=== PATIENT | female | born 1960 | race Caucasian/White ===

== ENCOUNTER → 2020-03-05 08:24 | Outpatient (CLI) | payer SELFPAY ==
[2020-03-05 09:59] LABS: Absolute Lymphocyte Count 0.72 X10^3/uL (0.83-4.51); Absolute Neutrophil Count 3.1 X10^3/uL (2.0-7.7); Basophil# 0.02 X10^3/uL; Basophil% 0.4 % (0-1); Eosinophils% 4.4 % (0-5); Hematocrit 43.3 % (37-47); Hemoglobin 14.1 g/dL (12.0-15.0); Lymphocyte # 0.72 X10^3/ul (4.0); Mean Corp Hgb Conc 32.6 g/dL (32-36); Mean Corpuscular Hgb 29.4 pg (27.0-32.0); Mean Corpuscular Volume 90.2 fL (81-99); Mean Platelet Vol. 10.2 fl (6.2-12.0); Monocyte# 0.38 X10^3/uL; Monocyte% 8.4 % (0-10); NRBC Flagged by Analyzer 0 % (0-5); Neutrophil # 3.14 X10^3/uL (2.7-7.7); Neutrophil % 69.9 % (47-70); Platelet Count 188 K/mm3 (150-450); RBC Distribution Width CV 12.5 % (11.6-14.6); RBC Distribution Width SD 41.3 fl (35.1-43.9); White Blood Count 4.5 K/mm3 (4.4-11.0)
[2020-03-05 10:19] LABS: ALB/GLOB Ratio 0.9 RATIO (0.9-2.4); AST(SGOT) 66 U/L (15-37); Alanine Aminotransfer ALT/SGPT 85 U/L (13-56); Albumin, Serum 3.4 g/dL (3.2-5.0); Alkaline Phosphatase 101 U/L (45-117); Anion Gap 6 (5-15); BUN 15 mg/dL (7-18); BUN/Creat Ratio 21.3 RATIO (10-20); Calcium,Total 8.6 mg/dL (8.5-10.1); Chloride 106 mmol/L (98-107); Cholesterol 102 mg/dL (200); EST Glomerular Filtration Rate 90 mL/min (>60); Est Glom Filt Rate - Afr Amer 109 mL/min (>60); Ferritin 588 ng/mL (8-252); Globulin 3.9 g/dL (2.2-4.2); Glucose 95 mg/dL (74-106); High Density Lipoprotein 31 mg/dL; Potassium 3.6 mmol/L (3.5-5.1); Protein, Total 7.3 g/dL (6.4-8.2); Sodium Level 142 mmol/L (136-145); Triglycerides 132 mg/dL; Very Low Density Lipoprotein 26 mg/dL (5-40)
[2020-03-08 05:06] LABS: QNTFERON TB Mitogen Value > 10.00 IU/mL (.); QNTFERON TB Nil Value 0.01 IU/mL (.); QNTFERON TB1+ Ag Value 0.02 IU/mL (.); QNTFERON TB2+ Ag Value 0.01 IU/mL (.)
[2020-03-08 07:46] LABS: QNTIFERON TB Positive Criteria Negative (Negative)
== END ==
PROVIDERS: Physician Assistant Medical; PCP Family Medicine; Referring Provider Physician Assistant; Visit Provider Physician Assistant
DX: R74.8 Abnormal levels of other serum enzymes (principal); R79.89 Other specified abnormal findings of blood chemistry; L40.0 Psoriasis vulgaris; Z13.220 Encounter for screening for lipoid disorders; Z79.899 Other long term (current) drug therapy
CPT/HCPCS: 36415; 80053; 80061; 82728; 85025; 86480

== ENCOUNTER 2021-03-13 11:56 | Outpatient (CLI) | payer SELFPAY ==
[2021-03-16 20:07] LABS: QNTFERON TB Mitogen Value > 10.00 IU/mL (.); QNTFERON TB Nil Value 0 IU/mL (.); QNTFERON TB1+ Ag Value 0.02 IU/mL (.); QNTFERON TB2+ Ag Value 0.01 IU/mL (.)
[2021-03-17 12:14] LABS: QNTIFERON TB Positive Criteria Negative (Negative)
== END 2021-03-13 23:59 | disposition short-term general hospital (02) ==
LOC: MTLAB 11:59
PROVIDERS: PCP Physician Assistant; Referring Provider Physician Assistant Medical; Visit Provider Physician Assistant Medical
DX: L40.0 Psoriasis vulgaris (principal); Z79.899 Other long term (current) drug therapy
CPT/HCPCS: 36415; 86480

== ENCOUNTER → 2021-12-16 | Outpatient (CLI) | payer OTHER, SELFPAY ==
[2021-12-16 11:25] LABS: Erythrocyte Sedimentation Rate < 1 mm/hr (0-30)
[2021-12-16 11:27] LABS: Absolute Lymphocyte Count 1.14 X10^3/uL (0.83-4.51); Absolute Neutrophil Count 2.9 X10^3/uL (2.0-7.7); Basophil# 0.03 X10^3/uL; Basophil% 0.6 % (0-1); Eosinophil# 0.32 X10^3/uL; Eosinophils% 6.8 % (0-5); Hematocrit 47.7 % (37-47); Hemoglobin 16.2 g/dL (12.0-15.0); Lymphocyte # 1.14 X10^3/ul (0.83-4.51); Lymphocyte % 24.1 % (19-41); Mean Corpuscular Hgb 31.4 pg (27.0-32.0); Mean Corpuscular Volume 92.4 fL (81-99); Mean Platelet Vol. 9.9 fl (6.2-12.0); Monocyte# 0.31 X10^3/uL; Monocyte% 6.5 % (0-10); NRBC Flagged by Analyzer 0 % (0-5); Neutrophil # 2.91 X10^3/uL (2.7-7.7); Neutrophil % 61.4 % (47-70); Platelet Count 161 K/mm3 (150-450); RBC Distribution Width CV 12.8 % (11.6-14.6); RBC Distribution Width SD 43.7 fl (35.1-43.9); Red Blood Count 5.16 M/mm3 (4.2-5.4); White Blood Count 4.7 K/mm3 (4.4-11.0)
[2021-12-16 11:33] LABS: Prothrombin Time (Protime)PT. 13.1 SECONDS (11.7-14.9)
[2021-12-16 11:46] LABS: Ammonia < 10.0 umol/L (11-32)
[2021-12-16 12:02] LABS: Hemoglobin A1c 5.5 % (3.8-5.6)
[2021-12-16 12:09] LABS: AST(SGOT) 37 U/L (15-37); Alanine Aminotransfer ALT/SGPT 44 U/L (13-56); Albumin, Serum 3.9 g/dL (3.2-5.0); Alkaline Phosphatase 98 U/L (45-117); Anion Gap 5 (5-15); BUN 21 mg/dL (7-18); BUN/Creat Ratio 25.8 RATIO (10-20); Bilirubin, Direct 0.25 mg/dL (0.00-0.30); CRP < 2.90 mg/L (0.0-3.0); Calcium,Total 9.3 mg/dL (8.5-10.1); Chloride 105 mmol/L (98-107); Creatinine, Serum 0.82 mg/dL (0.55-1.02); EST Glomerular Filtration Rate 75 mL/min (>60); Est Glom Filt Rate - Afr Amer 91 mL/min (>60); Ferritin 295 ng/mL (8-252); Free T3 3.2 pg/mL (2.18-3.98); GGTP 17 U/L (5-55); Glucose 99 mg/dL (74-106); LDH 200 U/L (84-246); Protein, Total 7.9 g/dL (6.4-8.2); Sodium Level 139 mmol/L (136-145); T4 Free Direct 0.94 ng/dL (0.76-1.46); Thyroid Stim Hormone (TSH) 1.46 uIU/mL (0.358-3.74)
[2021-12-16 12:19] LABS: HIV - WCH Non-Reactive (Nonreactive)
[2021-12-17 14:08] LABS: Anti-Centromere B Ab <0.2 AI (0.0-0.9); Anti-Chromatin <0.2 AI (0.0-0.9); Anti-Jo <0.2 AI (0.0-0.9); Anti-Scleroderma-70 AB <0.2 AI (0.0-0.9); RNP Ab 0.3 AI (0.0-0.9); SJOGREN'S Anti-SS-A test < 0.2 AI (0.0-0.9); SJOGREN'S Anti-SS-B test < 0.2 AI (0.0-0.9); Smith Ab <0.2 AI (0.0-0.9)
[2021-12-17 15:31] LABS: Anti-Mitochondrial AB <20.0 Units (0.0-20.0); Anti-dsDNA Ab <1 IU/mL (0-9)
[2021-12-18 06:08] LABS: Angiotensin Convert Enzyme 33 U/L (14-82); Ceruloplasmin 22.4 mg/dL (19.0-39.0); Cytoplasmic Ab (C-ANCA) <1:20 titer (Neg:<1:20); HEPATITIS B SURFACE AG Negative (Negative); Haptoglobin 113 mg/dL (37-355); Hep C Antibodies <0.1 s/co ratio (0.0-0.9); Hepatitis A IgM Antibody Negative (Negative); Hepatitis B Core AB IgM Negative (Negative)
[2021-12-18 09:57] LABS: AFP, Tumor Marker 2.9 ng/mL (0.0-9.2); Anti-Smooth Muscle ABS 6 Units (0-19); Copper, Serum or Plasma 98 ug/dL (80-158); Perinuclear Ab (P-ANCA) <1:20 titer (Neg:<1:20); Thyroid Peroxidase AB < 8 IU/mL (0-34)
== END | disposition home or self-care (01) ==
LOC: LAB 10:40
PROVIDERS: PCP Physician Assistant; Referring Provider Nurse Practitioner Adult Health; Visit Provider Nurse Practitioner Adult Health
DX: K76.0 Fatty (change of) liver, not elsewhere classified (principal); D75.1 Secondary polycythemia
CPT/HCPCS: 36415; 80053; 80074; 82105; 82140; 82164; 82248; 82390; 82525; 82728; 82977; 83010; 83036; 83516; 83615; 84439; 84443; 84481; 85025; 85610; 85652; 86140; 86225; 86235; 86256; 86376; 86703

== ENCOUNTER → 2022-01-02 | Outpatient (CLI) | payer OTHER, SELFPAY ==
--- NOTE | 2022-01-02 08:11 | US_ITS ---
STUDY: ABDOMINAL ULTRASOUND - ELASTOGRAPHY REASON FOR VISIT: Female, 61 years old. Fatty infiltration of the liver. TECHNIQUE: Liver stiffness measurements were obtained on a [employer] RS 85 ultrasound machine using a CA 1-7 probe following the SRU guidelines. 3 measurements were obtained using a 2-D-SWE method. The IQR/M was 17% suggesting a quality data set. TECHNICAL QUALITY: Adequate. COMPARISON: Comparison is made with prior study done earlier in the day. FINDINGS: Liver: Fatty infiltration of the liver. Median liver stiffness measured 10.3 kPa. US/Elastography Parenchyma/Organ IMPRESSION: Liver stiffness measures 10.3 kPa compatible with F2-F3 (Mild to moderate liver fibrosis) Metavir score. Electronically Signed: Mahendra Louis MD at 11:10 EDT ,
--- NOTE | 2022-01-02 08:11 | US_ITS ---
STUDY: ABDOMINAL ULTRASOUND - RIGHT UPPER QUADRANT REASON FOR VISIT: Female, 61 years old NAFLD, for elastography -- RUQ TECHNIQUE: Ultrasound evaluation of the right upper quadrant was performed with real-time and static rockwell-scale imaging. TECHNICAL QUALITY: Limited. Examination limited by bowel gas. COMPARISON: None. FINDINGS: Liver: The liver measures 13.7 cm. There is increased echogenicity consistent with fatty infiltration. The bile ducts are within normal limits. There is hepatic color flow. The direction of portal flow is hepatopetal. There is no demonstrated mass lesion. Gallbladder: Normal distended gallbladder. The gallbladder wall measures 2.1 mm. There is a negative sonographic Bragg''s sign. There is no pericholecystic fluid. There is a solitary echogenic gallstone within the gallbladder. This measures 7 mm x 4 mm x 4 mm. Common Bile Duct (C.B.D.): The common bile duct measures 3.3 mm. Pancreas: There is nonvisualization of the pancreas due to overlying bowel gas. Right Kidney: Normal size of the right kidney. The right kidney measures 10.4 cm x 5.9 cm x 4.8 cm. Normal renal cortex. The right cortex measures 1.5 cm. There is no demonstrated renal mass or cyst. There is no right hydronephrosis. US/Abdomen Limited IMPRESSION: Fatty infiltration of the liver. Solitary gallstone. Electronically Signed: Mahendra Louis MD at 11:08 EDT ,
== END | disposition home or self-care (01) ==
PROVIDERS: PCP Physician Assistant; Referring Provider Nurse Practitioner Adult Health; Visit Provider Nurse Practitioner Adult Health
DX: K76.0 Fatty (change of) liver, not elsewhere classified (principal); D75.1 Secondary polycythemia
CPT/HCPCS: 76705; 76981

== ENCOUNTER → 2022-03-31 | Outpatient (CLI) | payer OTHER, SELFPAY ==
[2022-04-03 14:08] LABS: QNTFERON TB Mitogen Value > 10.00 IU/mL (.); QNTFERON TB Nil Value 0.02 IU/mL (.); QNTFERON TB1+ Ag Value 0.02 IU/mL (.); QNTFERON TB2+ Ag Value 0.02 IU/mL (.)
[2022-04-03 18:25] LABS: Hepatitis B Core Ab Total Negative (Negative); QNTIFERON TB Positive Criteria Negative (Negative)
== END | disposition home or self-care (01) ==
LOC: MTLAB 09:59
PROVIDERS: PCP Physician Assistant; Referring Provider Physician Assistant Medical; Visit Provider Physician Assistant Medical
DX: L40.0 Psoriasis vulgaris (principal); L40.59 Other psoriatic arthropathy; L29.8 Other pruritus; I83.93 Asymptomatic varicose veins of bilateral lower extremities; R23.3 Spontaneous ecchymoses; L82.1 Other seborrheic keratosis; L81.4 Other melanin hyperpigmentation; D22.5 Melanocytic nevi of trunk; L57.8 Other skin changes due to chronic exposure to nonionizing radiation; L71.8 Other rosacea; Z71.89 Other specified counseling; Z79.899 Other long term (current) drug therapy
CPT/HCPCS: 36415; 86480; 86704

== ENCOUNTER → 2022-07-21 | Outpatient (CLI) | payer OTHER, SELFPAY ==
--- NOTE | 2022-07-21 08:14 | US_ITS ---
STUDY: ABDOMINAL ULTRASOUND - RIGHT UPPER QUADRANT REASON FOR VISIT: Female, 62 years old . Fatty liver. TECHNIQUE: Ultrasound evaluation of the right upper quadrant was performed with real-time and static rockwell-scale imaging. TECHNICAL QUALITY: Adequate. COMPARISON: Comparison is made with prior study January 02, 2022. FINDINGS: Liver: The liver measures 14.1 cm. There is increased echogenicity consistent with fatty infiltration. The bile ducts are within normal limits. There is hepatic color flow. The direction of portal flow is hepatopetal. There is no demonstrated mass lesion. Gallbladder: Normal distended gallbladder. The gallbladder wall measures 1.9 mm. There is a negative sonographic Bragg''s sign. There is no pericholecystic fluid. There is a solitary gallstone measuring 6 mm x 5 mm x 4 mm. Common Bile Duct (C.B.D.): The common bile duct measures 2.7 mm. Pancreas: There is nonvisualization of the pancreas due to overlying bowel gas. Right Kidney: Normal size of the right kidney. The right kidney measures 9.4 cm x 4.3 cm x 3.8 cm. Normal renal cortex. The right cortex measures 1.0 cm. There is no demonstrated renal mass or cyst. There is no right hydronephrosis. US/Abdomen Limited IMPRESSION: Fat infiltration of the liver. Solitary gallstone. Electronically Signed: Mahendra Louis MD at 15:41 EDT ,
--- NOTE | 2022-07-21 08:14 | US_ITS ---
STUDY: ABDOMINAL ULTRASOUND - ELASTOGRAPHY REASON FOR VISIT: Female, 62 years old. Fatty infiltration of the liver. TECHNIQUE: Liver stiffness measurements were obtained on a [employer] RS 85 ultrasound machine using a CA 1-7 probe following the SRU guidelines. 3 measurements were obtained using a 2-D-SWE method. TheIQR/M was 15 suggesting a quality data set. TECHNICAL QUALITY: Adequate. COMPARISON: Comparison is made with prior study January 02, 2022. FINDINGS: Liver: Fatty infiltration of the liver. Median liver stiffness measured 8.6 kPa. Abdomen: There is no demonstrated mass lesion. US/Elastography Parenchyma/Organ IMPRESSION: Liver stiffness measures 8.6 kPa compatible with F2-F3 (Mild to moderate liver fibrosis) Metavir score. Electronically Signed: Mahendra Louis MD at 15:42 EDT ,
== END | disposition home or self-care (01) ==
LOC: US 08:13
PROVIDERS: PCP Physician Assistant; Referring Provider Nurse Practitioner Adult Health; Visit Provider Nurse Practitioner Adult Health
DX: K76.0 Fatty (change of) liver, not elsewhere classified (principal)
CPT/HCPCS: 76705; 76981

== ENCOUNTER 2023-03-12 13:33 | Outpatient (CLI) | payer MEDICARE, SELFPAY ==
[2023-03-12 15:22] LABS: Absolute Lymphocyte Count 1.17 X10^3/uL (0.83-4.51); Basophil# 0.05 X10^3/uL; Basophil% 0.8 % (0-1); Eosinophil# 0.49 X10^3/uL; Eosinophils% 7.9 % (0-5); Hematocrit 46.8 % (37-47); Hemoglobin 15.8 g/dL (12.0-15.0); Lymphocyte # 1.17 X10^3/ul (0.83-4.51); Lymphocyte % 18.8 % (19-41); Mean Corp Hgb Conc 33.8 g/dL (32-36); Mean Corpuscular Hgb 30.3 pg (27.0-32.0); Mean Corpuscular Volume 89.7 fL (81-99); Mean Platelet Vol. 10.1 fl (6.2-12.0); Monocyte# 0.49 X10^3/uL; Monocyte% 7.9 % (0-10); NRBC Flagged by Analyzer 0 % (0-5); Neutrophil # 3.98 X10^3/uL (2.7-7.7); Neutrophil % 64.1 % (47-70); Platelet Count 160 K/mm3 (150-450); RBC Distribution Width CV 12.4 % (11.6-14.6); RBC Distribution Width SD 40.5 fl (35.1-43.9); Red Blood Count 5.22 M/mm3 (4.2-5.4); White Blood Count 6.2 K/mm3 (4.4-11.0)
[2023-03-12 15:43] LABS: Prothrombin Time (Protime)PT. 12.9 SECONDS (11.7-14.9)
[2023-03-12 16:02] LABS: Hemoglobin A1c 5.3 % (3.8-5.6)
[2023-03-12 16:09] LABS: AST(SGOT) 51 U/L (15-37); Alanine Aminotransfer ALT/SGPT 72 U/L (13-56); Albumin, Serum 3.8 g/dL (3.2-5.0); Alkaline Phosphatase 102 U/L (45-117); Anion Gap 6 (5-15); BUN 23 mg/dL (7-18); BUN/Creat Ratio 31.6 RATIO (10-20); CRP < 2.90 mg/L (0.0-3.0); Calcium,Total 9.4 mg/dL (8.5-10.1); Chloride 106 mmol/L (98-107); Cholesterol 130 mg/dL (200); Creatinine, Serum 0.73 mg/dL (0.55-1.02); EST Glomerular Filtration Rate 85 mL/min (>60); Est Glom Filt Rate - Afr Amer 103 mL/min (>60); Ferritin 301 ng/mL (8-252); Globulin 3.8 g/dL (2.2-4.2); Glucose 100 mg/dL (74-106); High Density Lipoprotein 52 mg/dL; Iron 125 ug/dL (50-170); Iron Binding Capacity,Total 358 ug/dL (250-450); PERCENT IRON SATURATION 34.9 % (15.0-55.0); Potassium 3.8 mmol/L (3.5-5.1); Protein, Total 7.6 g/dL (6.4-8.2); Sodium Level 139 mmol/L (136-145); Triglycerides 83 mg/dL; Very Low Density Lipoprotein 17 mg/dL (5-40)
[2023-03-15 15:08] LABS: AFP, Tumor Marker 2.9 ng/mL (0.0-9.2); ANTINUCLEAR ANTIBODIES DIRECT Negative (Negative); Anti-Mitochondrial AB <20.0 Units (0.0-20.0); Anti-Smooth Muscle ABS 4 Units (0-19); Transferrin 280 mg/dL (192-364)
[2023-03-17 13:08] LABS: Hepatitis B Core AB IgM Negative (Negative); QNTFERON TB Mitogen Value > 10.00 IU/mL (.); QNTFERON TB Nil Value 0 IU/mL (.); QNTFERON TB1+ Ag Value 0 IU/mL (.); QNTFERON TB2+ Ag Value 0 IU/mL (.); QNTIFERON TB Positive Criteria Negative (Negative)
== END 2023-03-12 23:59 | disposition home or self-care (01) ==
PROVIDERS: PCP Physician Assistant; Referring Provider Internal Medicine; Visit Provider Internal Medicine
DX: R79.89 Other specified abnormal findings of blood chemistry (principal); R74.8 Abnormal levels of other serum enzymes; L40.0 Psoriasis vulgaris; K76.0 Fatty (change of) liver, not elsewhere classified; D75.1 Secondary polycythemia; Z79.899 Other long term (current) drug therapy; Z13.220 Encounter for screening for lipoid disorders
CPT/HCPCS: 36415; 80053; 80061; 82105; 82728; 83036; 83516; 83540; 83550; 84466; 85025; 85610; 86038; 86140; 86225; 86235; 86480; 86705

== ENCOUNTER → 2023-06-15 | Outpatient (CLI) | payer MEDICARE, SELFPAY ==
--- NOTE | 2023-06-15 18:40 | CT_ITS ---
STUDY: CT ABDOMEN AND PELVIS WITH AND WITHOUT CONTRAST REASON FOR EXAM: Female, 63 years old. NAFLD, HCC screening, HCC protocol RADIATION DOSAGE (If Supplied By Facility): CTDIvol = ( 20.33 ) mGy, DLP = ( 1881.03 ) mGycm TECHNIQUE: Transaxial images were obtained from the dome of the diaphragm to the symphysis pubis without oral contrast. ISOVUE 370-100ml was administered. Sagittal and coronal images were reconstructed. Individualized dose optimization techniques were used for this CT. COMPARISON: None. FINDINGS: The visualized lung bases are unremarkable. The visualized portions of the heart are within normal limits. There is decreased attenuation of the liver consistent with steatosis. Focal area of fatty sparing along the gallbladder fossa. Hepatomegaly. There is a solitary gallstone. Mild degree of gallbladder wall thickening. There is mild splenomegaly. Normal pancreas. Normal bilateral adrenal glands. Normal right kidney. There is a 3 cm cyst in the upper medial aspect of the left kidney. Normal visualized stomach. Normal small intestine. Moderate amount of fecal material is seen in the distal colon. The appendix is visualized and appears normal. Normal abdominal aorta. Normal inferior vena cava. Normal retroperitoneum. Normal urinary bladder. There is absence of the uterus consistent with a prior hysterectomy. Normal abdominal wall. There are degenerative changes of the visualized lumbar spine. CT/CT Abd/Pelvis W/WO Contrast IMPRESSION: Hepatomegaly. Diffuse fatty infiltration of the liver with focal area of fatty sparing in the region of the gallbladder fossa. Solitary gallstone with mild thickening of the gallbladder wall. Electronically Signed: Mahendra Louis MD at 13:13 EDT ,
[2023-06-15 19:09] LABS: CREATININE FINGERSTICK < 1.0 mg/dL (0.55-1.02); EGFR FINGERSTICK > 60.0000 mL/min (>60)
== END | disposition home or self-care (01) ==
PROVIDERS: PCP Physician Assistant; Visit Provider Internal Medicine
DX: D75.1 Secondary polycythemia (principal); K76.0 Fatty (change of) liver, not elsewhere classified
CPT/HCPCS: 74178; Q9967

== ENCOUNTER → 2023-09-13 | Outpatient (CLI) | payer MEDICARE, SELFPAY ==
[2023-09-13 12:40] LABS: Absolute Lymphocyte Count 0.92 X10^3/uL (0.83-4.51); Absolute Neutrophil Count 2.9 X10^3/uL (2.0-7.7); Basophil# 0.04 X10^3/uL; Basophil% 0.9 % (0-1); Eosinophil# 0.36 X10^3/uL; Eosinophils% 7.9 % (0-5); Hematocrit 46.5 % (37-47); Hemoglobin 15.4 g/dL (12.0-15.0); Lymphocyte # 0.92 X10^3/ul (0.83-4.51); Lymphocyte % 20.3 % (19-41); Mean Corp Hgb Conc 33.1 g/dL (32-36); Mean Corpuscular Hgb 30.4 pg (27.0-32.0); Mean Corpuscular Volume 91.7 fL (81-99); Mean Platelet Vol. 10.4 fl (6.2-12.0); Monocyte# 0.31 X10^3/uL; Monocyte% 6.8 % (0-10); NRBC Flagged by Analyzer 0 % (0-5); Neutrophil # 2.85 X10^3/uL (2.7-7.7); Neutrophil % 62.8 % (47-70); Platelet Count 165 K/mm3 (150-450); RBC Distribution Width CV 12.8 % (11.6-14.6); RBC Distribution Width SD 42.5 fl (35.1-43.9); Red Blood Count 5.07 M/mm3 (4.2-5.4); White Blood Count 4.5 K/mm3 (4.4-11.0)
[2023-09-13 12:54] LABS: AST(SGOT) 33 U/L (15-37); Alanine Aminotransfer ALT/SGPT 49 U/L (13-56); Albumin, Serum 3.8 g/dL (3.2-5.0); Alkaline Phosphatase 73 U/L (45-117); Anion Gap 7 (5-15); BUN 18 mg/dL (7-18); BUN/Creat Ratio 22.7 RATIO (10-20); Bilirubin, Direct 0.23 mg/dL (0.00-0.30); CRP < 2.90 mg/L (0.0-3.0); Calcium,Total 9.1 mg/dL (8.5-10.1); Chloride 103 mmol/L (98-107); Creatinine, Serum 0.79 mg/dL (0.55-1.02); EST Glomerular Filtration Rate 77 mL/min (>60); Est Glom Filt Rate - Afr Amer 94 mL/min (>60); Globulin 3.7 g/dL (2.2-4.2); Glucose 89 mg/dL (74-106); Potassium 3.6 mmol/L (3.5-5.1); Protein, Total 7.5 g/dL (6.4-8.2); Sodium Level 140 mmol/L (136-145)
[2023-09-13 13:41] LABS: Hemoglobin A1c 5.3 % (3.8-5.6)
== END | disposition home or self-care (01) ==
PROVIDERS: PCP Physician Assistant; Referring Provider Internal Medicine; Visit Provider Internal Medicine
DX: D75.1 Secondary polycythemia (principal); K76.0 Fatty (change of) liver, not elsewhere classified; Z79.899 Other long term (current) drug therapy
CPT/HCPCS: 36415; 80053; 82248; 83036; 85025; 86140

== ENCOUNTER → 2024-03-14 | Outpatient (CLI) | payer MEDICARE, SELFPAY ==
--- NOTE | 2024-03-14 09:35 | US_ITS ---
STUDY: ABDOMINAL ULTRASOUND - RIGHT UPPER QUADRANT; ELASTOGRAPHY REASON FOR VISIT: Female, 64 years old. Hepatic fibrosis. Splenomegaly. TECHNIQUE: Ultrasound evaluation of the right upper quadrant was performed with real-time and static rockwell-scale imaging. Point quantification shear wave elastography was performed ([employer]). TECHNICAL QUALITY: Adequate. COMPARISON: Comparison is made with prior study dated July 21, 2022. FINDINGS: Liver: The liver measures 16 cm. There is increased echogenicity consistent with fatty infiltration. The bile ducts are within normal limits. There is hepatic color flow. The direction of portal flow is hepatopetal. There is no demonstrated mass lesion. Median liver stiffness measured 12.8 kPa. Gallbladder: Normal distended gallbladder. The gallbladder wall measures 1 mm. There is a negative sonographic Bragg''s sign. There is no pericholecystic fluid. There is a solitary echogenic gallstone within the gallbladder. This measures 9 mm x 9 mm x 9 mm. Common Bile Duct (C.B.D.): The common bile duct measures 3 mm. Pancreas: There is normal echogenicity of the visualized pancreas. There is no demonstrated pancreatic mass or cyst. Right Kidney: Normal size of the right kidney. The right kidney measures 9.7 cm x 5.2 cm x 4.6 cm. Normal renal cortex. The right cortex measures 1.1 cm. There is no demonstrated renal mass or cyst. There is no right hydronephrosis. IMPRESSION: 1. Liver stiffness measures 12.8 kPa compatible with F3-F4 (Moderate to severe liver fibrosis) Metavir score. 2. Solitary gallstone. Fatty infiltration of the liver. Electronically Signed: Mahendra Louis MD at 13:09 EST , STUDY: ABDOMINAL ULTRASOUND - LEFT UPPER QUADRANT REASON FOR EXAM: Female, 64 years old. Liver fibrosis -- including spleen, mild splenomegaly in CT ABD TECHNIQUE: Transabdominal ultrasound was performed with real-time and static rockwell scale imaging. TECHNICAL QUALITY: Adequate. COMPARISON: None. FINDINGS: Spleen: There is splenomegaly. The spleen measures 14.1 cm x 3.9 cm x 6 cm. US/ABD Limited w/ Elastography IMPRESSION: Mild splenomegaly. Electronically Signed: Mahendra Louis MD at 13:10 EST ,
== END | disposition home or self-care (01) ==
LOC: US 09:34
PROVIDERS: PCP Physician Assistant; Referring Provider Internal Medicine; Visit Provider Internal Medicine
DX: D75.1 Secondary polycythemia (principal); K76.0 Fatty (change of) liver, not elsewhere classified; R53.83 Other fatigue
CPT/HCPCS: 76705; 76981

== ENCOUNTER → 2024-03-31 | Outpatient (CLI) | payer MEDICARE, SELFPAY ==
[2024-03-31 15:14] LABS: Absolute Lymphocyte Count 1.02 X10^3/uL (0.83-4.51); Absolute Neutrophil Count 2.9 X10^3/uL (2.0-7.7); Basophil# 0.06 X10^3/uL; Basophil% 1.2 % (0-1); Eosinophil# 0.42 X10^3/uL; Eosinophils% 8.7 % (0-5); Hematocrit 46.2 % (37-47); Hemoglobin 15.3 g/dL (12.0-15.0); Lymphocyte # 1.02 X10^3/ul (0.83-4.51); Lymphocyte % 21.2 % (19-41); Mean Corp Hgb Conc 33.1 g/dL (32-36); Mean Corpuscular Hgb 30.1 pg (27.0-32.0); Mean Corpuscular Volume 90.8 fL (81-99); Monocyte# 0.41 X10^3/uL; Monocyte% 8.5 % (0-10); NRBC Flagged by Analyzer 0 % (0-5); Neutrophil # 2.88 X10^3/uL (2.7-7.7); Platelet Count 179 K/mm3 (150-450); RBC Distribution Width CV 12.7 % (11.6-14.6); RBC Distribution Width SD 42.3 fl (35.1-43.9); Red Blood Count 5.09 M/mm3 (4.2-5.4); White Blood Count 4.8 K/mm3 (4.4-11.0)
[2024-03-31 15:26] LABS: Prothrombin Time (Protime)PT. 13.5 SECONDS (11.7-14.9)
[2024-03-31 15:35] LABS: Vitamin B12 803 pg/mL (211-911)
[2024-03-31 15:39] LABS: Hemoglobin A1c 5.6 % (3.8-5.6)
[2024-03-31 16:18] LABS: ALB/GLOB Ratio 1.1 RATIO (0.9-2.4); AST(SGOT) 72 U/L (15-37); Alanine Aminotransfer ALT/SGPT 114 U/L (13-56); Albumin, Serum 3.9 g/dL (3.2-5.0); Alkaline Phosphatase 102 U/L (45-117); Anion Gap 8 (5-15); BUN 19 mg/dL (7-18); BUN/Creat Ratio 23.9 RATIO (10-20); CRP < 2.90 mg/L (0.0-3.0); Calcium,Total 8.9 mg/dL (8.5-10.1); Chloride 103 mmol/L (98-107); Cholesterol 118 mg/dL (200); EST Glomerular Filtration Rate 77 mL/min (>60); Est Glom Filt Rate - Afr Amer 93 mL/min (>60); Ferritin 280 ng/mL (8-252); Globulin 3.7 g/dL (2.2-4.2); Glucose 98 mg/dL (74-106); High Density Lipoprotein 55 mg/dL; Iron 121 ug/dL (50-170); Iron Binding Capacity,Total 357 ug/dL (250-450); Lipase 57 U/L (13-75); PERCENT IRON SATURATION 33.9 % (15.0-55.0); Potassium 3.9 mmol/L (3.5-5.1); Protein, Total 7.6 g/dL (6.4-8.2); Sodium Level 138 mmol/L (136-145); Triglycerides 61 mg/dL; Very Low Density Lipoprotein 12 mg/dL (5-40)
[2024-04-04 17:07] LABS: QNTFERON TB Mitogen Value > 10.00 IU/mL (.); QNTFERON TB Nil Value 0.01 IU/mL (.); QNTFERON TB1+ Ag Value 0.01 IU/mL (.); QNTFERON TB2+ Ag Value 0.01 IU/mL (.); QNTIFERON TB Positive Criteria Negative (Negative)
[2024-04-05 12:08] LABS: Albumin 3.7 g/dL (2.9-4.4); Alpha-1-Globulins 0.2 g/dL (0.0-0.4); Endomysial Antibody IgA Negative (Negative); Free Kappa Light Chains 26.2 mg/L (3.3-19.4); Free Lambda Light Chains 15.8 mg/L (5.7-26.3); Gamma Globulin 0.9 g/dL (0.4-1.8); Immunoglobulin A 317 mg/dL (87-352); Immunoglobulin E 69 IU/mL (6-495); Immunoglobulin G 1004 mg/dL (586-1602); Immunoglobulin M 63 mg/dL (26-217); PROEL- TOTAL PROTEIN 7.1 g/dL (6.0-8.5); t-Transglutaminase IgA <2 U/mL (0-3)
== END | disposition home or self-care (01) ==
LOC: MTLAB 10:17
PROVIDERS: Internal Medicine; PCP Physician Assistant; Referring Provider Physician Assistant Medical; Visit Provider Physician Assistant Medical
DX: L40.0 Psoriasis vulgaris (principal); Z79.899 Other long term (current) drug therapy; K76.0 Fatty (change of) liver, not elsewhere classified; D75.1 Secondary polycythemia; R53.83 Other fatigue; E03.9 Hypothyroidism, unspecified; K74.00 Hepatic fibrosis, unspecified; R73.03 Prediabetes; E83.19 Other disorders of iron metabolism
CPT/HCPCS: 36415; 80053; 80061; 82607; 82728; 82746; 82784; 82785; 83036; 83516; 83540; 83550; 83690; 83883; 84165; 84443; 85025; 85610; 86140; 86255; 86334; 86480

== ENCOUNTER → 2024-04-03 | Outpatient (CLI) | payer MEDICARE, SELFPAY ==
[2024-04-05 07:07] LABS: Pancreatic Elastase, Fecal > 800 (>200)
[2024-04-06 01:06] LABS: Calprotectin, Stool 5 ug/g (0-120); Fats, Neutral Normal (.); Fats, Total Increased (.)
== END | disposition home or self-care (01) ==
LOC: MTLAB 08:24
PROVIDERS: PCP Physician Assistant; Referring Provider Internal Medicine; Visit Provider Internal Medicine
DX: K58.9 Irritable bowel syndrome, unspecified (principal); R53.83 Other fatigue; R19.7 Diarrhea, unspecified
CPT/HCPCS: 82274; 82653; 82705; 83630; 83993; 87493

== ENCOUNTER → 2024-09-29 | Outpatient (CLI) | payer MEDICARE, SELFPAY ==
[2024-09-29 12:32] LABS: Prothrombin Time (Protime)PT. 13.4 SECONDS (11.7-14.9)
[2024-09-29 12:35] LABS: Hematocrit 45.9 % (37-47); Hemoglobin 15.7 g/dL (12.0-15.0); Immature Granulocytes Count 0.030 X10^3/uL (0.0-0.0); Mean Corp Hgb Conc 34.2 g/dL (32-36); Mean Corpuscular Volume 90.7 fL (81-99); Mean Platelet Vol. 10.7 fl (6.2-12.0); NRBC Flagged by Analyzer 0 % (0-5); Platelet Count 176 K/mm3 (150-450); RBC Distribution Width CV 12.9 % (11.6-14.6); RBC Distribution Width SD 42.5 fl (35.1-43.9); Red Blood Count 5.06 M/mm3 (4.2-5.4); White Blood Count 4.8 K/mm3 (4.4-11.0)
[2024-09-29 13:18] LABS: AST(SGOT) 42 U/L (<=31); Alanine Aminotransfer ALT/SGPT 46 U/L (<=34); Albumin, Serum 4.5 g/dL (3.4-4.8); Alkaline Phosphatase 95 U/L (35-104); Anion Gap 13 (5-15); BUN 16 mg/dL (4-19); BUN/Creat Ratio 20.1 RATIO (10-20); Calcium,Total 9.3 mg/dL (7.6-11.0); Carbon Dioxide 25.1 mmol/L (21.0-32.0); Chloride 102 mmol/L (98-108); Ferritin 299 ng/mL (22-378); Globulin 2.9 g/dL (2.2-4.2); Glucose 94 mg/dL (70-99); Iron 96 ug/dL (50-170); Iron Binding Capacity,Total 332 ug/dL (250-450); Iron Binding Capacity,Unsat 236 ug/dL (228-428); Potassium 3.9 mmol/L (3.3-5.1)
[2024-09-29 13:36] LABS: Cholesterol 114 mg/dL (<=200); Low Density Lipoprotein Calc. 50 mg/dL; Triglycerides 71 mg/dL; Very Low Density Lipoprotein 14 mg/dL (5-40); cholesterol:hdl ratio screen 2.31
--- OUTSIDE RECORDS SUMMARY | 2024-09-29 17:54 | XMS RPT_ITS | CCD ---
Author Organization [facility] Care Team Providers Care Bottom Turner Name Role Phone Unavailable Primary Care Provider Unavailabl e TANISHA Patton Primary Care Provider TANISHA Patton Referring Provider Oren RUSS, DRY MOP MAKER-C Effie Price Attending Provider TANISHA Patton Primary Care Provider TANISHA Patton Referring Provider Oren RUSS, DRY MOP MAKER-C Effie Price Attending Provider Jose SALAZAR, Sanjuanita J Unavailable Jose SALAZAR, Sanjuanita J Unavailable Shahana PLUMMER, Dr. Isreal Ya Unavailable Hematology Provider Unavailable Unavailable Livan PLUMMER, Dr. Betancourt Unavailable Gastroenterology Provider Unavailable Otis Thomas MD, Dr. Reynoso Unavailable Bob Santamaria MD Unavailable Georgia Brennan Unavailable Unavailable Ricardo BAUMANN, Claudine Aguilera Unavailable Unavaila ble Mutersbaugh SENIOR CASE MANAGER, Pavithra K Unavailable Unasneha Colon SENIOR CASE MANAGER, Génesis M Unavailable Unavailab alesha Diaz LPN, Tess Cordova Unavailable Unavailab Iliana Logan LPN Unavailable Unavailabl e Unavailable Unavailable TANISHA Patton Primary Care Provider TANISHA Patton Referring Provider Dr. Ehsan Bains Attending Provider TANISHA Patton Primary Care Provider TANISHA Patton Referring Provider Dr. Ehsan Bains Attending Provider SANJUANITA GARCIA Attending Unavailable SANJUANITA GARCIA Consulting Unavailable SANJUANITA GARCIA Primary Care Unavailable SANJUANITA GARCIA Admitting Unavailable PROVIDER, UNKNOWN Consulting Unavailable Unavailable Primary Care Provider Unavailabl e EHSAN BAINS Referring Unavailable EHSAN BAINS Referring Unavailable Sanjuanita Patton Primary Care Provider [address] [place], [address] Bilirubin [Mass/Vol] 0.80 mg/dL Normal 0.20-1.00 [facility] Comment on above: Result Comment: For patients on eltrombopag therapy, use of Dimension [place] TBIL is not recommended. Performed By: #### L 7000.0750, M100.7900, L3410.9999, L7000.0300, L7000.0700, M100.6796, M100.0605 #### [facility] [address] [place], [address] BUN/CRE 22.7 RATIO High 10-20 [facility] Comment on above: Performed By: #### L 7000.0750, M100.7900, L3410.9999, L7000.0300, L7000.0700, M100.6796, M100.0605 #### [facility] [address] [place], [address] CA,Total 9.1 mg/dL Normal 8.5-10.1 [facility] Comment on above: Performed By: #### L 7000.0750, M100.7900, L3410.9999, L7000.0300, L7000.0700, M100.6796, M100.0605 #### [facility] [address] [place], [address] Chloride [Moles/Vol] 103 mmol/L Normal 98-107 [facility] Comment on above: Performed By: #### L 7000.0750, M100.7900, L3410.9999, L7000.0300, L7000.0700, M100.6796, M100.0605 #### [facility] [address] [place], [address] CO2 [Moles/Vol] 30.0 mmol/L Normal 21.0-32.0 [facility] Comment on above: Performed By: #### L 7000.0750, M100.7900, L3410.9999, L7000.0300, L7000.0700, M100.6796, M100.0605 #### [facility] [address] [place], [address] Creatinine [Mass/Vol] 0.79 mg/dL Normal 0.55-1.02 [facility] Comment on above: Result Comment: The validity of the calculated GFR GFRAA in patients over 70 years has not been determined. Clinical correlation is essential. Performed By: #### L 7000.0750, M100.7900, L3410.9999, L7000.0300, L7000.0700, M100.6796, M100.0605 #### [facility] [address] [place], [address] EST GFR - AA 94 mL/min Normal >60 [facility] Comment on above: Result Comment: Afri can Citizen Of [place] GFR Calc Performed By: #### L 7000.0750, M100.7900, L3410.9999, L7000.0300, L7000.0700, M100.6796, M100.0605 #### [facility] [address] [place], [address] GAP 7 Normal 5-15 [facility] Comment on above: Performed By: #### L 7000.0750, M100.7900, L3410.9999, L7000.0300, L7000.0700, M100.6796, M100.0605 #### [facility] [address] [place], [address] GFR/1.73 sq M.predicted among non-blacks MDRD (S/P/Bld) [Vol rate/Area] 77 mL/min/{1.73_m2} Normal >60 [facility] Comment on above: Result Comment: Non- GFR Calc Performed By: #### L 7000.0750, M100.7900, L3410.9999, L7000.0300, L7000.0700, M100.6796, M100.0605 #### [facility] [address] [place], [address] Globulin (S) [Mass/Vol] 3.7 g/dL Normal 2.2-4.2 [facility] Comment on above: Performed By: #### L 7000.0750, M100.7900, L3410.9999, L7000.0300, L7000.0700, M100.6796, M100.0605 #### [facility] [address] [place], [address] Glucose [Mass/Vol] 89 mg/dL Normal 74-[address] [facility] Comment on above: Performed By: #### L 7000.0750, M100.7900, L3410.9999, L7000.0300, L7000.0700, M100.6796, M100.0605 #### [facility] [address] [place], [address] Potassium [Moles/Vol] 3.6 mmol/L Normal 3.5-5.1 [facility] Comment on above: Performed By: #### L 7000.0750, M100.7900, L3410.9999, L7000.0300, L7000.0700, M100.6796, M100.0605 #### [facility] [address] [place], [address] Sodium [Moles/Vol] 140 mmol/L Normal 136-[address] [facility] Comment on above: Performed By: #### L 7000.0750, M100.7900, L3410.9999, L7000.0300, L7000.0700, M100.6796, M100.0605 #### [facility] [address] [place], [address] T PROT 7.5 g/dL Normal 6.4-8.2 [facility] Comment on above: Performed By: #### L 7000.0750, M100.7900, L3410.9999, L7000.0300, L7000.0700, M100.6796, M100.0605 #### [facility] [address] [place], [address] Urea nitrogen [Mass/Vol] 18 mg/dL Normal 7-18 [facility] Comment on above: Performed By: #### L 7000.0750, M100.7900, L3410.9999, L7000.0300, L7000.0700, M100.6796, M100.0605 #### [facility] [address] [place], [address] Hemoglobin A1con 09-13-2023 HbA1c (Bld) [Mass fraction] 5.3 % Normal 3.8-5.6 [facility] Comment on above: Result Comment: Norm al < 5.7 % Prediabetic 5.7 - 6.4 % Diabetic >or= 6.5 % Please note range changes. Performed By: #### L 7000.0750, M100.7900, L3410.9999, L7000.0300, L7000.0700, M100.6796, M100.0605 #### [facility] [address] [place], [address] Basophil percentageOrdered B y: Ehsan Aaron on 06-15-2023 Basophil percentage < 1.0 mg/dL 0.55-1.02 [facility] No Panel InformationOrdered By: Ehsan Aaron on 06-15-2023 Bedside Estimated GFR (eGFR) > 60.0000 mL/min >60 [facility] Absolute lymphocyte countOrd ered By: Ehsanflaquito Bains on 03-12-2023 Lymphocytes Auto (Unsp spec) [#/Vol] 1.17 10*3/uL 0.83-4.51 [facility] Basophil percentageOrdered B y: Ehsanflaquito Bains on 03-12-2023 Basophil percentage Not Reportable [facility] Basophils/100 WBC (Bld) 0.8 % 0-1 [facility] Bilirubin [Mass/Vol] 1.60 mg/dL 0.20-1.00 [facility] Comment on above: For patients on eltr ombopag therapy, use of Dimension [place] TBIL is not recommended. Chloride [Moles/Vol] 106 mmol/L 98-107 [facility] Cholesterol [Mass/Vol] 130 mg/dL <[address] [facility] Comment on above: <200 mg/dL Desirable 200-240 mg/dL Borderline >240 mg/dL High Risk Eosinophils/100 WBC (Bld) 7.9 % 0-5 [facility] Glucose [Mass/Vol] 100 mg/dL 74-[address] [facility] Comment on above: Fasting Glucose resu lt from 100 to 125 mg/dL suggests IMPAIRED HOMEOSTASIS per A.D.A. criteria. Neutrophils (Bld) [#/Vol] 4.0 10*3/uL 2.0-7.7 [facility] Neutrophils/100 WBC (Bld) 64.1 % 47-70 [facility] Potassium [Moles/Vol] 3.8 mmol/L 3.5-5.1 [facility] Protein [Mass/Vol] 7.6 g/dL 6.4-8.[address] [facility] Sodium [Moles/Vol] 139 mmol/L 136-[address] [facility] Triglyceride [Mass/Vol] 83 mg/dL <199 [facility] Comment on above: The drugs N-Acetylcy steine and Metamizole may falsely depress this assay.Serum Triglycerides Reference Interval Normal <150 mg/dL Borderline high 150 - 199 mg/dL High 200 - 499 mg/dL Very High > or = 500 mg/dL WBC (Bld) [#/Vol] 6.2 10*3/uL 4.4-11.[address] [facility] Blood erythrocytes count (nu mber/volume)Ordered By: Ehsan Bains on 03-12-2023 RBC (Bld) [#/Vol] 5.22 10*6/uL 4.2-5.4 [facility] Blood hemoglobin measurement (mass/volume)Ordered By: Ehsan Bains on 03-12-2023 Hemoglobin (Bld) [Mass/Vol] 15.8 g/dL 12.0-15.0 [facility] Blood lymphocytes/100 leukoc ytesOrdered By: Ehsan Bains on 03-12-2023 Lymphocytes/100 WBC (Bld) 18.8 % 19-41 [facility] Blood monocytes/100 leukocyt esOrdered By: Ehsan Bains on 03-12-2023 Monocytes/100 WBC (Bld) 7.9 % 0-10 [facility] Blood platelet mean volumeOr dered By: Ehsan Bains on 03-12-2023 Platelet mean volume (Bld) [Entitic vol] 10.1 fL 6.2-12.0 [facility] Determination of erythrocyte mean corpuscular volume (MCV)Ordered By: Ehsan Bains on 03-12-2023 MCV (RBC) [Entitic vol] 89.7 fL 81-99 [facility] Hematocrit Auto (Bld) [Volum e fraction]Ordered By: Ehsan Bains on 03-12-2023 Hematocrit (Bld) [Volume fraction] 46.8 % 37-47 [facility] INR in Blood by Coagulation assayOrdered By: Ehsan Bains on 03-12-2023 INR Coag (Bld) [Relative time] 1.0 {INR} [facility] Iron measurement (mass/mass) Ordered By: Ehsan Bains on 03-12-2023 Iron (Unsp spec) [Mass/Mass] 125 ug/dL 50-170 [facility] - Chemistry and C hemistry - challengeOrdered By: Ehsan Bains on 03-12-2023 ALP [Catalytic activity/Vol] 102 U/L 45-117 [facility] ALT [Catalytic activity/Vol] 72 U/L 13-56 [facility] CO2 [Moles/Vol] 27.0 mmol/L 21.0-32.0 [facility] Globulin (S) [Mass/Vol] 3.8 g/dL 2.2-4.2 [facility] Transferrin [Mass/Vol] 280 mg/dL 192-[address] [facility] Comment on above: Performed at: [facility] [place] [id number] Director: Julián Mccallum PhD, Phone: [phone] Urea nitrogen/Creatinine [Mass ratio] 31.6 mg/mg 10-20 [facility] - CoagulationOrde red By: Ehsan Bains on 03-12-2023 PT Coag (PPP) [Time] 12.9 s 11.7-14.9 [facility] - Hematology and Cell countsOrdered By: Ehsan Bains on 03-12-2023 Erythrocyte distribution width (RBC) [Entitic vol] 40.5 fL 35.1-43.9 [facility] Erythrocyte distribution width (RBC) [Ratio] 12.4 % 11.6-14.6 [facility] Immature granulocytes/100 WBC (Bld) 0.500 % 0.0-0.9 [facility] Comment on above: IG% - Immature Granu locytes (promyelocytes, myelocytes and metamyelocytes) > 1% indicates that a LEFT SHIFT is Present. MCH (RBC) [Entitic mass] 30.3 pg 27.0-32.0 [facility] Nucleated RBC/100 WBC (Bld) [Ratio] 0 % 0-5 [facility] MCHC Auto (RBC) [Mass/Vol]Or dered By: Ehsan Bains on 03-12-2023 MCHC (RBC) [Mass/Vol] 33.8 g/dL 32-36 [facility] No Panel InformationOrdered By: Ehsan Bains on 03-12-2023 Hepatitis B Core IgM Antibody Negative Negative [facility] Comment on above: Performed at: [facility] [place], [place] [id number] Director: Julián Mccallum PhD, Phone: [phone] Anti-Nuclear Antibody Screen Negative Negative [facility] Comment on above: Performed at: [facility] [id number] [place], [place] [id number] Director: Julián Mccallum PhD, Phone: [phone] Centromere B Antibody Not Reportable [facility] Estimated GFR (MDRD) Amer 103 mL/min >60 [facility] Comment on above: GFR Calc Estimated GFR (MDRD) Non-Af Amer 85 mL/min >60 [facility] Comment on above: Non- GFR Calc GRASSLAND CONSERVATIONIST Antibody Not Reportable [facility] Total Iron Binding Capacity 358 ug/dL 250-450 [facility] Platelets bldOrdered By: Jono Bains on 03-12-2023 Platelets (Bld) [#/Vol] 160 10*3/uL 150-450 [facility] Qualitative QuantiFERON-TB g old in tube testOrdered By: Ehsan Bains on 03-12-2023 M. tuberculosis tuberculin stim IFN-g Ql (Bld) 0 IU/mL . [facility] Serum DNA double strand anti body assay (units/volume)Ordered By: Ehsan Bains on 03-12-2023 DNA double strand Ab Qn (S) Not Reportable [facility] Serum Jaylyn-1 antibody assay (u nits/volume)Ordered By: Ehsan Bains on 03-12-2023 Jaylyn-1 extractable nuclear Ab Qn (S) Not Reportable [facility] Serum Scl-70 extractable nuc lear antibody assay (units/volume)Ordered By: Ehsan Bains on 03-12-2023 SCL-70 extractable nuclear Ab Qn (S) Not Reportable [facility] Serum Bañuelos extractable nucl ear antibody detectionOrdered By: Ehsan Bains on 03-12-2023 Bañuelos extractable nuclear Ab Ql (S) Not Reportable [facility] Serum mitochondria antibody detectionOrdered By: Ehsan Bains on 03-12-2023 Mitochondria Ab Ql (S) <20.0 Units 0.0-20.0 [facility] Comment on above: Negative 0.0 - 20.0 Equivocal 20.1 - 24.9 Positive >24.9Mitochondrial (M2) Antibodies are found in 90-96% ofpatients with primary biliary cirrhosis. Serum or plasma C reactive p rotein measurement (mass/volume)Ordered By: Ehsan Bains on 03-12-2023 CRP [Mass/Vol] mg/L 0.0-3.0 [facility] Comment on above: C-Reactive Protein ( CRP) provides useful information for thediagnosis, therapy and monitoring of inflammatory processesand associated diseases. For the evaluation of Relative Riskfor Cardiovascular Disease, a High Sensitivity CRP (HSCRP)should be ordered. Serum or plasma actin IgG an tibody assay (units/volume)Ordered By: Ehsan Bains on 03-12-2023 Actin IgG Qn 4 Units 0-19 [facility] Comment on above: Negative 0 - 19 Weak positive 20 - 30 Moderate to strong positive >30 Actin Antibodies are found in 52-85% of patients with autoimmune hepatitis or chronic active hepatitis and in 22% of patients with primary biliary cirrhosis. Serum or plasma albumin daniel urement (mass/volume)Ordered By: Ehsan Bains on 03-12-2023 Albumin [Mass/Vol] 3.8 g/dL 3.2-5.[address] [facility] Serum or plasma albumin/glob ulin mass ratioOrdered By: Ehsan Bains on 03-12-2023 Albumin/Globulin [Mass ratio] 1.0 {ratio} 0.9-2.4 [facility] Serum or plasma athtj-2-[id number] protein tumor marker measurement (units/volume)Ordered By: Ehsan Bains on 03-12-2023 AFP.tumor marker Qn 2.9 ng/mL 0.0-9.2 [facility] Comment on above: [employer] El ectrochemiluminescence Immunoassay(ECLIA)Values obtained with different assay methods or kits cannotbe used interchangeably. Results cannot be interpreted asabsolute evidence of the presence or absence of malignantdisease.This test is not interpretable in females. Serum or plasma calcium daniel urement (mass/volume)Ordered By: Ehsan Bains on 03-12-2023 Calcium [Mass/Vol] 9.4 mg/dL 8.5-10.[address] [facility] Serum or plasma cholesterol in HDL measurement (mass/volume)Ordered By: Ehsan Bains on 03-12-2023 Cholesterol in HDL [Mass/Vol] 52 mg/dL >40 [facility] Comment on above: The drugs N-Acetylcy steine and Metamizole may falsely depress this assay. Reference Range HDL <40 mg/dL Low HDL Cholesterol HDL >or= 60 mg/dL High HDL Cholesterol Serum or plasma cholesterol in VLDL measurement (mass/volume)Ordered By: Ehsan Bains on 03-12-2023 Cholesterol in VLDL [Mass/Vol] 17 mg/dL 5-40 [facility] Serum or plasma creatinine m easurement (mass/volume)Ordered By: Ehsan Bains on 03-12-2023 Creatinine [Mass/Vol] 0.73 mg/dL 0.55-1.02 [facility] Comment on above: The validity of the calculated GFR & GFRAA in patients over 70 years has not been determined. Clinical correlation is essential. Serum or plasma ferritin rose mary surement (mass/volume)Ordered By: Ehsan Bains on 03-12-2023 Ferritin [Mass/Vol] 301 ng/mL 8-252 [facility] Serum or plasma iron saturat ion measurement (mass fraction)Ordered By: Ehsan Bains on 03-12-2023 Iron saturation [Mass fraction] 34.9 % 15.0-55.0 [facility] Serum or plasma low density lipoprotein (LDL) cholesterol measurement (mass/volume)Ordered By: Ehsan Bains on 03-12-2023 Cholesterol in LDL [Mass/Vol] 61 mg/dL 0-130 [facility] Serum or plasma urea nitroge n measurement (mass/volume)Ordered By: Ehsan Bains on 03-12-2023 Urea nitrogen [Mass/Vol] 23 mg/dL 7-18 [facility] Thin prep Papanicolaou smear with manual screeningOrdered By: Ehsan Bains on 03-12-2023 Thin prep Papanicolaou smear with manual screening Comment . [facility] Comment on above: QuantiFERON-TB Gold Plus is a qualitative indirect test forM tuberculosis infection (including disease) and isintended for use in conjunction with risk assessment,radiography, and other medical and diagnostic evaluations.The QuantiFERON-TB Gold Plus result is determined bysubtracting the Nil value from either TB antigen (Ag)value. The Mitogen tube serves as a control for the test. Thin prep Papanicolaou smear with manual screening 0 IU/mL . [facility] Thin prep Papanicolaou smear with manual screening > 10.00 IU/mL . [facility] Thin prep Papanicolaou smear with manual screening Negative Negative [facility] Comment on above: No response to M tub erculosis antigens detected.Infection with M tuberculosis is unlikely, but high riskindividuals should be considered for additional testing(ATS/IDSA/CDC Clinical Practice Guidelines, 2017). Thereference range is an Antigen minus Nil result of <0.35IU/mL.The specimen received for QuantiFERON testing was incubatedby the ordering institution. Specific procedures outlinedin our Directory of Services and in the package insert forthe QuantiFERON Gold (In Tube) test must be followed toenable for proper stimulation of cells for the productionof interferon gamma. Chemiluminescence immunoassaymethodology Thin prep Papanicolaou smear with manual screening 51 U/L 15-37 [facility] Thin prep Papanicolaou smear with manual screening 6 5-15 [facility] Whole blood hemoglobin A1c/t otal hemoglobin ratio (mass fraction)Ordered By: Ehsan Bains on 03-12-2023 HbA1c (Bld) [Mass fraction] 5.3 % 3.8-5.6 [facility] Comment on above: Normal < 5.7 % Predi abetic 5.7 - 6.4 % Diabetic >or= 6.5 % Please note range changes. Qualitative QuantiFERON-TB g old in tube testOrdered By: Bucky Joel on 03-31-2022 M. tuberculosis tuberculin stim IFN-g Ql (Bld) 0.02 IU/mL . [facility] Serum hepatitis B virus core antibody detectionOrdered By: Bucky Joel on 03-31-2022 HBV core Ab Ql (S) Negative Negative [facility] Comment on above: Performed at: [address] [id number] Director: Julián Mccallum PhD, Phone: [phone] Thin prep Papanicolaou smear with manual screeningOrdered By: Bucky Joel on 03-31-2022 Thin prep Papanicolaou smear with manual screening Comment . [facility] Comment on above: QuantiFERON-TB Gold Plus is a qualitative indirect test forM tuberculosis infection (including disease) and isintended for use in conjunction with risk assessment,radiography, and other medical and diagnostic evaluations.The QuantiFERON-TB Gold Plus result is determined bysubtracting the Nil value from either TB antigen (Ag)value. The Mitogen tube serves as a control for the test. Thin prep Papanicolaou smear with manual screening 0.02 IU/mL . [facility] Thin prep Papanicolaou smear with manual screening > 10.00 IU/mL . [facility] Thin prep Papanicolaou smear with manual screening Negative Negative [facility] Comment on above: No response to M tub erculosis antigens detected.Infection with M tuberculosis is unlikely, but high riskindividuals should be considered for additional testing(ATS/IDSA/CDC Clinical Practice Guidelines, 2017). Thereference range is an Antigen minus Nil result of <0.35IU/mL.The specimen received for QuantiFERON testing was incubatedby the ordering institution. Specific procedures outlinedin our Directory of Services and in the package insert forthe QuantiFERON Gold (In Tube) test must be followed toenable for proper stimulation of cells for the productionof interferon gamma. Chemiluminescence immunoassaymethodology Absolute lymphocyte countOrd ered By: Effie Lott on 12-16-2021 Lymphocytes Auto (Unsp spec) [#/Vol] 1.14 10*3/uL 0.83-4.51 [facility] Atypical perinuclear antineu trophil cytoplasmic antibodies measurementOrdered By: Effie Lott on 12-16-2021 Neutrophil cytoplasmic Ab.perinuclear.atypical IF (S) [Titer] <1:20 titer Neg:<1:20 [facility] Comment on above: The atypical pANCA p attern has been observed in asignificant percentage of patients with ulcerative colitis,primary sclerosing cholangitis and autoimmune hepatitis. Basophil percentageOrdered B y: Effie Lott on 12-16-2021 Basophil percentage < 10.0 umol/L [facility] Basophil percentage < 0.2 AI 0.0-0.9 [facility] Basophils/100 WBC (Bld) 0.6 % 0-1 [facility] Bilirubin [Mass/Vol] 1.00 mg/dL 0.20-1.00 [facility] Comment on above: For patients on eltr ombopag therapy, use of Dimension [place] TBIL is not recommended. Chloride [Moles/Vol] 105 mmol/L 98-107 [facility] Eosinophils/100 WBC (Bld) 6.8 % 0-5 [facility] Glucose [Mass/Vol] 99 mg/dL 74-[address] [facility] Neutrophils (Bld) [#/Vol] 2.9 10*3/uL 2.0-7.7 [facility] Neutrophils/100 WBC (Bld) 61.4 % 47-70 [facility] Potassium [Moles/Vol] 4.0 mmol/L 3.5-5.1 [facility] Protein [Mass/Vol] 7.9 g/dL 6.4-8.[address] [facility] Sodium [Moles/Vol] 139 mmol/L 136-[address] [facility] WBC (Bld) [#/Vol] 4.7 10*3/uL 4.4-11.[address] [facility] Blood erythrocytes count (nu mber/volume)Ordered By: Effie Lott on 12-16-2021 RBC (Bld) [#/Vol] 5.16 10*6/uL 4.2-5.4 [facility] Blood hemoglobin measurement (mass/volume)Ordered By: Effie Lott on 12-16-2021 Hemoglobin (Bld) [Mass/Vol] 16.2 g/dL 12.0-15.0 [facility] Blood lymphocytes/100 leukoc ytesOrdered By: Effie Lott on 12-16-2021 Lymphocytes/100 WBC (Bld) 24.1 % 19-41 [facility] Blood monocytes/100 leukocyt esOrdered By: Effie Lott on 12-16-2021 Monocytes/100 WBC (Bld) 6.5 % 0-10 [facility] Blood platelet mean volumeOr dered By: Effie Lott on 12-16-2021 Platelet mean volume (Bld) [Entitic vol] 9.9 fL 6.2-12.0 [facility] Determination of erythrocyte mean corpuscular volume (MCV)Ordered By: Effie Lott on 12-16-2021 MCV (RBC) [Entitic vol] 92.4 fL 81-99 [facility] Direct bilirubinOrdered By: Effie Lott on 12-16-2021 Bilirubin.direct [Mass/Vol] 0.25 mg/dL 0.00-0.30 [facility] Erythrocyte sedimentation ra teOrdered By: Effie Lott on 12-16-2021 ESR (Bld) [Velocity] mm/h 0-30 [facility] HIV 1 and HIV-2 antibody ass ay with HIV-1 p24 antigen detectionOrdered By: Effie Lott on 12-16-2021 HIV 1+2 Ab+HIV1 p24 Ag IA Ql Non-Reactive Nonreactive [facility] Hematocrit Auto (Bld) [Volum e fraction]Ordered By: Effie Lott on 12-16-2021 Hematocrit (Bld) [Volume fraction] 47.7 % 37-47 [facility] INR in Blood by Coagulation assayOrdered By: Effie Lott on 12-16-2021 INR Coag (Bld) [Relative time] 1.0 {INR} [facility] Laboratory - Chemistry and C hemistry - challengeOrdered By: Effie Lott on 12-16-2021 ALP [Catalytic activity/Vol] 98 U/L 45-117 [facility] ALT [Catalytic activity/Vol] 44 U/L 13-56 [facility] Amylase [Catalytic activity/Vol] 17 U/L 5-55 [facility] CO2 [Moles/Vol] 29.0 mmol/L 21.0-32.0 [facility] Free T4 [Mass/Vol] 0.94 ng/dL 0.76-1.[address] [facility] Globulin (S) [Mass/Vol] 4.0 g/dL 2.2-4.2 [facility] Urea nitrogen/Creatinine [Mass ratio] 25.8 mg/mg 10-20 [facility] Laboratory - CoagulationOrde red By: Effie Lott on 12-16-2021 PT Coag (PPP) [Time] 13.1 s 11.7-14.9 [facility] Laboratory - Hematology and Cell countsOrdered By: Effie Lott on 12-16-2021 Erythrocyte distribution width (RBC) [Entitic vol] 43.7 fL 35.1-43.9 [facility] Erythrocyte distribution width (RBC) [Ratio] 12.8 % 11.6-14.6 [facility] Immature granulocytes/100 WBC (Bld) 0.600 % 0.0-0.9 [facility] Comment on above: IG% - Immature Granu locytes (promyelocytes, myelocytes and metamyelocytes) > 1% indicates that a LEFT SHIFT is Present. MCH (RBC) [Entitic mass] 31.4 pg 27.0-32.0 [facility] Nucleated RBC/100 WBC (Bld) [Ratio] 0 % 0-5 [facility] MCHC Auto (RBC) [Mass/Vol]Or dered By: Effie Lott on 12-16-2021 MCHC (RBC) [Mass/Vol] 34.0 g/dL 32-36 [facility] No Panel InformationOrdered By: Effie Lott on 12-16-2021 Centromere B Antibody <0.2 AI 0.0-0.9 [facility] Ceruloplasmin 22.4 mg/dL 19.0-39.0 [facility] Estimated GFR (MDRD) Amer 91 mL/min >60 [facility] Comment on above: GFR Calc Estimated GFR (MDRD) Non-Af Amer 75 mL/min >60 [facility] Comment on above: Non- GFR Calc Free Triiodothyronine (T3) pg/dL 3.2 pg/mL 2.18-3.98 [facility] Haptoglobin 113 mg/dL 37-355 [facility] Hepatitis A IgM Antibody Negative Negative [facility] Hepatitis B Core IgM Antibody Negative Negative [facility] Hepatitis C Antibody (EIA) <0.1 s/co ratio 0.0-0.9 [facility] Hepatitis C Antibody Comment Comment . [facility] Comment on above: NegativeNot infected with HCV, unless recent infection issuspected or other evidence exists to indicate HCVinfection. [employer]ATION[employer] Antibody 0.3 AI 0.0-0.9 [facility] Thyroid Stimulating Hormone (TSH) 1.46 uIU/mL 0.358-3.74 [facility] Platelets bldOrdered By: Charito Lott on 12-16-2021 Platelets (Bld) [#/Vol] 161 10*3/uL 150-450 [facility] Serum DNA double strand anti body assay (units/volume)Ordered By: Effie Lott on 12-16-2021 DNA double strand Ab Qn (S) [IU]/mL 0-9 [facility] Comment on above: Negative <5 Equivoca l 5 - 9 Positive >9 Serum Jaylyn-1 antibody assay (u nits/volume)Ordered By: Effie Lott on 12-16-2021 Jaylyn-1 extractable nuclear Ab Qn (S) <0.2 AI 0.0-0.9 [facility] Serum Scl-70 extractable nuc lear antibody assay (units/volume)Ordered By: Effie Lott on 12-16-2021 SCL-70 extractable nuclear Ab Qn (S) <0.2 AI 0.0-0.9 [facility] Serum Bañuelos extractable nucl ear antibody detectionOrdered By: Effie Lott on 12-16-2021 Bañuelos extractable nuclear Ab Ql (S) <0.2 AI 0.0-0.9 [facility] Serum classic neutrophil cyt oplasmic antibody assay (units/volume)Ordered By: Effie Lott on 12-16-2021 Neutrophil cytoplasmic Ab.classic Qn (S) <1:20 titer Neg:<1:20 [facility] Serum mitochondria antibody detectionOrdered By: Effie Lott on 12-16-2021 Mitochondria Ab Ql (S) <20.0 Units 0.0-20.0 [facility] Comment on above: Negative 0.0 - 20.0 Equivocal 20.1 - 24.9 Positive >24.9Mitochondrial (M2) Antibodies are found in 90-96% ofpatients with primary biliary cirrhosis.Performed at: - Lab[address] [id number] Director: Julián Mccallum PhD, Phone: [phone] Serum or plasma C reactive p rotein measurement (mass/volume)Ordered By: Effie Lott on 12-16-2021 CRP [Mass/Vol] mg/L 0.0-3.0 [facility] Comment on above: C-Reactive Protein ( CRP) provides useful information for thediagnosis, therapy and monitoring of inflammatory processesand associated diseases. For the evaluation of Relative Riskfor Cardiovascular Disease, a High Sensitivity CRP (HSCRP)should be ordered. Serum or plasma actin IgG an tibody assay (units/volume)Ordered By: Effie Lott on 12-16-2021 Actin IgG Qn 6 Units 0-19 [facility] Comment on above: Negative 0 - 19 Weak positive 20 - 30 Moderate to strong positive >30 Actin Antibodies are found in 52-85% of patients with autoimmune hepatitis or chronic active hepatitis and in 22% of patients with primary biliary cirrhosis. Serum or plasma albumin daniel urement (mass/volume)Ordered By: Effie Lott on 12-16-2021 Albumin [Mass/Vol] 3.9 g/dL 3.2-5.[address] [facility] Serum or plasma albumin/glob ulin mass ratioOrdered By: Effie Lott on 12-16-2021 Albumin/Globulin [Mass ratio] 1.0 {ratio} 0.9-2.4 [facility] Serum or plasma cqomo-3-whsl protein tumor marker measurement (units/volume)Ordered By: Effie Lott on 12-16-2021 AFP.tumor marker Qn 2.9 ng/mL 0.0-9.2 [facility] Comment on above: [facility] El ectrochemiluminescence Immunoassay(ECLIA)Values obtained with different assay methods or kits cannotbe used interchangeably. Results cannot be interpreted asabsolute evidence of the presence or absence of malignantdisease.This test is not interpretable in females. Serum or plasma angiotensin converting enzyme measurement (enzymatic activity/volume)Ordered By: Effie Lott on 12-16-2021 Angiotensin converting enzyme [Catalytic activity/Vol] 33 U/L 14-82 [facility] Serum or plasma calcium daniel urement (mass/volume)Ordered By: Effie Lott on 12-16-2021 Calcium [Mass/Vol] 9.3 mg/dL 8.5-10.[address] [facility] Serum or plasma creatinine m easurement (mass/volume)Ordered By: Effie Lott on 12-16-2021 Creatinine [Mass/Vol] 0.82 mg/dL 0.55-1.02 [facility] Comment on above: The validity of the calculated GFR & GFRAA in patients over 70 years has not been determined. Clinical correlation is essential. Serum or plasma ferritin rose mary surement (mass/volume)Ordered By: Effie Lott on 12-16-2021 Ferritin [Mass/Vol] 295 ng/mL 8-252 [facility] Serum or plasma hepatitis B virus surface antigen detection by immunoassayOrdered By: Effie Lott on 12-16-2021 HBV surface Ag IA Ql Negative Negative [facility] Serum or plasma thyroperoxid ase antibody assay (units/volume)Ordered By: Effie Lott on 12-16-2021 TPO Ab Qn [IU]/mL 0-34 [facility] Comment on above: Performed at: [facility] General Comp[address] [id number] Director: Julián Mccallum PhD, Phone: [phone] at: [facility] [id number] Director: Maoc Self MD, Phone: [phone] Serum or plasma urea nitroge n measurement (mass/volume)Ordered By: Effie Lott on 12-16-2021 Urea nitrogen [Mass/Vol] 21 mg/dL 7-18 [facility] Serum perinuclear neutrophil cytoplasmic antibody titer by immunofluorescenceOrdered By: Effie Lott on 12-16-2021 Neutrophil cytoplasmic Ab.perinuclear IF (S) [Titer] <1:20 titer Neg:<1:20 [facility] Comment on above: The presence of posi tive fluorescence exhibiting P-ANCA orC-ANCA patterns alone is not specific for the diagnosis ofWegener's Granulomatosis (WG) or microscopic polyangiitis.Decisions about treatment should not be based solely onANCA IFA results. The [employer] ANCA [employer] Consensusrecommends follow up testing of positive sera with both WY-3 and MPO-ANCA enzyme immunoassays. As many as 5% serumsamples are positive only by EIA. Ref. AM J Clin Xxngyb0436;111:507-513. Thin prep Papanicolaou smear with manual screeningOrdered By: Effie Lott on 12-16-2021 Thin prep Papanicolaou smear with manual screening 37 U/L 15-37 [facility] Thin prep Papanicolaou smear with manual screening 5 5-15 [facility] Thin prep Papanicolaou smear with manual screening 200 U/L 84-246 [facility] Thin prep Papanicolaou smear with manual screening 98 ug/dL 80-158 [facility] Comment on above: Detection Limit = 5 Whole blood hemoglobin A1c/t otal hemoglobin ratio (mass fraction)Ordered By: Effie Lott on 12-16-2021 HbA1c (Bld) [Mass fraction] 5.5 % 3.8-5.6 [facility] Comment on above: Normal < 5.7 % Predi abetic 5.7 - 6.4 % Diabetic >or= 6.5 % Please note range changes. CBC (INCLUDES DIFF/PLT)on Basophils (Bld) [#/Vol] 0.038 10*3/uL Normal 0-200 [facility] Comment on above: Performed By: #### 4 57, 6399, 77226 #### [facility] [place] [address] Tree Specialist: Stewart Angel MD Basophils/100 WBC (Bld) 0.9 % Normal [facility] Comment on above: Performed By: #### 4 57, 0499, 74847 #### [facility] [place] [address] Tree Specialist: Stewart Angel MD Eosinophils (Bld) [#/Vol] 0.315 10*3/uL Normal 15-500 [facility] Comment on above: Performed By: #### 4 57, 6399, 28847 #### [facility] [place] [address] Tree Specialist: Stewart Angel MD Eosinophils/100 WBC (Bld) 7.5 % Normal [facility] Comment on above: Performed By: #### 4 57, 1199, 47564 #### [facility] [place] [address] Tree Specialist: Stewart Angel MD Erythrocyte distribution width (RBC) [Ratio] 13.0 % Normal 11.0-15.0 [facility] Comment on above: Performed By: #### 4 57, 6399, 86661 #### [facility] of [place] [address] Tree Specialist: Stewart Angel MD Hematocrit (Bld) [Volume fraction] 47.6 % High 35.0-45.0 [facility] Comment on above: Performed By: #### 4 57, 6399, 69819 #### [facility] of [place] [address] Tree Specialist: Stewart Angel MD Hemoglobin (Bld) [Mass/Vol] 16.0 g/dL High 11.7-15.5 [facility] Comment on above: Performed By: #### 4 57, 63, 90623 #### [facility] of [place] [address] Tree Specialist: Stewart Angel MD Lymphocytes (Bld) [#/Vol] 1 10*3/uL Normal 850-3900 [facility] Comment on above: Performed By: #### 4 57, 6399, 61444 #### [facility] of [place] [address] Tree Specialist: Stewart Angel MD Lymphocytes/100 WBC (Bld) 23.8 % Normal [facility] Comment on above: Performed By: #### 4 57, 6399, 48727 #### [facility] of [place] [address] Tree Specialist: Stewart Angel MD MCH (RBC) [Entitic mass] 30.4 pg Normal 27.0-33.0 [facility] Comment on above: Performed By: #### 4 57, 6399, 00421 #### [facility] of [place] [address] Tree Specialist: Stewart Angel MD MCHC (RBC) [Mass/Vol] 33.6 g/dL Normal 32.0-36.[address] [facility] Comment on above: Performed By: #### 4 57, 6399, 56002 #### [facility] of [place] [address] Tree Specialist: Stewart Angel MD MCV (RBC) [Entitic vol] 90.3 fL Normal 80.0-100.0 [facility] Comment on above: Performed By: #### 4 57, 6399, 00830 #### [facility] of [place] [address] Tree Specialist: Stewart Angel MD Monocytes (Bld) [#/Vol] 0.328 10*3/uL Normal 200-950 [facility] Comment on above: Performed By: #### 4 57, 6399, 17861 #### [facility] of [place] [address] Tree Specialist: Stewart Angel MD Monocytes/100 WBC (Bld) 7.8 % Normal [facility] Comment on above: Performed By: #### 4 57, 6399, 64478 #### [facility] of [place] [address] Tree Specialist: Stewart Angel MD Neutrophils (Bld) [#/Vol] 2.52 10*3/uL Normal 4153-8144 [facility] Comment on above: Performed By: #### 4 57, 6399, 23481 #### [facility] of [place] [address] Tree Specialist: Stewart Angel MD Neutrophils/100 WBC (Bld) 60 % Normal [facility] Comment on above: Performed By: #### 4 57, 6399, 17685 #### [facility] of [place] [address] Tree Specialist: Stewart Angel MD Platelet mean volume (Bld) [Entitic vol] 10.6 fL Normal 7.5-12.5 [facility] Comment on above: Performed By: #### 4 57, 6399, 47058 #### [facility] of [place] [address] Tree Specialist: Stewart Angel MD Platelets (Bld) [#/Vol] 158 10*3/uL Normal 140-400 [facility] Comment on above: Performed By: #### 4 57, 6399, 54273 #### [facility] of [address], [address] [place] [address] Tree Specialist: Stewart Angel MD RBC (Bld) [#/Vol] 5.27 10*6/uL High 3.80-5.10 [facility] Comment on above: Performed By: #### 4 57, 6399, 19073 #### [facility] of [address], [address] [place] [address] Tree Specialist: Stewart Angel MD WBC (Bld) [#/Vol] 4.2 10*3/uL Normal 3.8-10.8 [facility] Comment on above: Performed By: #### 4 57, 6399, 11204 #### [facility] of [address], [address] [place] [address] Tree Specialist: Stewart Angel MD [facility] 12-02-2021 Albumin [Mass/Vol] 4.5 g/dL Normal 3.6-5.1 [facility] Comment on above: Performed By: #### 4 57, 6399, 36015 #### [facility] of [place] [address] Tree Specialist: Stewart Angel MD Albumin/Globulin [Mass ratio] 1.6 {ratio} Normal 1.0-2.5 [facility] Comment on above: Performed By: #### 4 57, 6399, 93184 #### [facility] of [place] [address] Tree Specialist: Stewart Angel MD ALP [Catalytic activity/Vol] 80 U/L Normal 37-153 [facility] Comment on above: Performed By: #### 4 57, 6399, 79023 #### [facility] of [place] [address] Tree Specialist: Stewart Angel MD ALT [Catalytic activity/Vol] 30 U/L High 6-29 [facility] Comment on above: Performed By: #### 4 57, 6399, 02760 #### [facility] of [place] [address] Tree Specialist: Stewart Angel MD AST [Catalytic activity/Vol] 28 U/L Normal 10-35 [facility] Comment on above: Performed By: #### 4 57, 6399, 13928 #### [facility] of [place] [address] Tree Specialist: Stewart Angel MD Bilirubin [Mass/Vol] 1.5 mg/dL High 0.2-1.2 [facility] Comment on above: Performed By: #### 4 57, 6399, 03019 #### [facility] of [place] [address] Tree Specialist: Stewart Angel MD BUN/CREATININE RATIO NOT APPLICABLE Normal 6-22 [facility] Comment on above: Performed By: #### 4 57, 6399, 18132 #### [facility] of [place] [address] Tree Specialist: Stewart Angel MD Calcium [Mass/Vol] 9.6 mg/dL Normal 8.6-10.4 [facility] Comment on above: Performed By: #### 4 57, 6399, 88994 #### [facility] of [place] [address] Tree Specialist: Stewart Angel MD Chloride [Moles/Vol] 101 mmol/L Normal 98-110 [facility] Comment on above: Performed By: #### 4 57, 6399, 47953 #### [facility] of [place] [address] Tree Specialist: Stewart Angel MD CO2 [Moles/Vol] 32 mmol/L Normal 20-32 [facility] Comment on above: Performed By: #### 4 57, 6399, 11787 #### [facility] of [place] [address] [place] [address] Tree Specialist: Stewart Angel MD Creatinine [Mass/Vol] 0.71 mg/dL Normal 0.50-1.[address] [facility] Comment on above: Performed By: #### 4 57, 6399, 13076 #### [facility] [address], [address] [place] [address] Tree Specialist: Stewart Angel MD GFR/1.73 sq M.predicted among non-blacks MDRD (S/P/Bld) [Vol rate/Area] 95 mL/min/{1.73_m2} Normal > OR = 60 [facility] Comment on above: Result Comment: The eGFR is based on the CKD-EPI 2020 equation. To calculate the new eGFR from a previous Creatinine or Cystatin C result, go to https://www.kidney.org/professionals/ kdoqi/gfr%5Fcalculator Performed By: #### 4 57, 6399, 82840 #### [facility] [address], [address] [place] [address] Tree Specialist: Stewart Angel MD Globulin (S) [Mass/Vol] 2.8 g/dL Normal 1.9-3.7 [facility] Comment on above: Performed By: #### 4 57, 6399, 01502 #### [facility] [place] [address] Tree Specialist: Stewart Angel MD Glucose [Mass/Vol] 91 mg/dL Normal 65-99 [facility] Comment on above: Result Comment: Fasting reference interval Performed By: #### 4 57, 6399, 44470 #### [facility] [address], [address] [place] [address] Tree Specialist: Stewart Angel MD Potassium [Moles/Vol] 4.1 mmol/L Normal 3.5-5.[address] [facility] Comment on above: Performed By: #### 4 57, 6399, 07780 #### [facility] [address], [address] [place] [address] Tree Specialist: Stewart Angel MD Protein [Mass/Vol] 7.3 g/dL Normal 6.1-8.1 [facility] Comment on above: Performed By: #### 4 57, 6399, 68620 #### [facility] of [address], [address] [place] [address] Tree Specialist: Stewart Angel MD Sodium [Moles/Vol] 141 mmol/L Normal 135-146 [facility] Comment on above: Performed By: #### 4 57, 6399, 12179 #### [facility] of [address], [address] [place] [address] Tree Specialist: Stewart Angel MD Urea nitrogen [Mass/Vol] 18 mg/dL Normal 7-25 [facility] Comment on above: Performed By: #### 4 57, 6399, 07636 #### [facility] of [place] [address] Tree Specialist: Stewart Angel MD FERRITINon 12-02-2021 Ferritin [Mass/Vol] 294 ng/mL High 16-288 [facility] Comment on above: Performed By: #### 4 57, 6399, 07677 #### [facility] of [place] [address] Tree Specialist: Stewart Angel MD TEST AUTHORIZATIONon 022 CLIENT CONTACT: GÉNESIS Alegre Normal [facility] Comment on above: Performed By: #### 4 57, 6399, 53998 #### [facility] of [place] [address] Tree Specialist: Stewart Angel MD COMMENT Normal [facility] Comment on above: Result Comment: Plea se have the ordering physician or his or her authorized member services representative sign a copy of this report and promptly return it by faxing it to: [phone] or by returning the form to your svp of digital. Performed By: #### 4 57, 6399, 53994 #### [facility] of [place] [address] Tree Specialist: Stewart Angel MD REPORT ALWAYS MESSAGE SIGNATURE Normal [facility] Comment on above: Result Comment: The laboratory testing on this patient was verbally requested or confirmed by the ordering physician or his or her authorized member services representative after contact with an employee of [employer]. Federal regulations require that we maintain on file written authorization for all laboratory testing. Accordingly we are asking that the ordering physician or his or her authorized member services representative sign a copy of this report and promptly return it to the client technical support associate. Signature: Performed By: #### 4 57, 6399, 27680 #### [facility] [place] [address] Tree Specialist: Stewart Angel MD TEST CODE: [id number] Normal [facility] Comment on above: Performed By: #### 4 57, 6399, 54595 #### [facility] [place] [address] Tree Specialist: Stewart Angel MD TEST NAME: FERRITIN Normal [facility] Comment on above: Performed By: #### 4 57, 6399, 23343 #### [facility] [place] [address] Tree Specialist: Stewart Angel MD Laboratory - Chemistry and C hemistry - challengeon 11-28-2021 Albumin [Mass/Vol] 4.5 g/dL Normal 3.6 - 5.1 g/dL [employer], [facility].; [employer] Albumin/Globulin [Mass ratio] 1.6 {ratio} Normal 1.0 - 2.5 [employer] [facility], [facility].; [employer], [employer]. ALP [Catalytic activity/Vol] 80 U/L Normal 37 - 153 U/L [employer], [facility].; [employer] ALT [Catalytic activity/Vol] 30 U/L Abnormal 6 - 29 U/L [employer], [facility].; [employer] AST [Catalytic activity/Vol] 28 U/L Normal 10 - 35 U/L [facility] [facility].; [place] [facility] [facility]. Bilirubin [Mass/Vol] 1.5 mg/dL Abnormal 0.2 - 1 .2 mg/dL [facility].; [facility], [employer]. Calcium [Mass/Vol] 9.6 mg/dL Normal 8.6 - 10. 4 mg/dL [facility].; [facility] [facility] Chloride [Moles/Vol] 101 mmol/L Normal 98 - 11 0 mmol/L [facility].; [place] [employer]. CO2 [Moles/Vol] 32 mmol/L Normal 20 - 32 mmol/L [facility].; [place] [facility]. Creatinine [Mass/Vol] 0.71 mg/dL Normal 0.50 - 1.05 mg/dL [facility] [facility].; [place] [employer] Ferritin [Mass/Vol] 294 ng/mL Abnormal 16 - 288 ng/mL [facility].; [place] [employer]. Work Phone: GFR/1.73 sq M.predicted among non-blacks MDRD (S/P/Bld) [Vol rate/Area] 95 mL/min/{1.73_m2} Normal [facility].; [place] [facility] Glucose [Mass/Vol] 91 mg/dL Normal 65 - 99 mg/dL [facility].; [employer], [employer]. Potassium [Moles/Vol] 4.1 mmol/L Normal 3.5 - 5.3 mmol/L [facility].; [place] [employer]. Protein [Mass/Vol] 7.3 g/dL Normal 6.1 - 8.1 g/dL [facility].; [employer], [employer]. Sodium [Moles/Vol] 141 mmol/L Normal 135 - 146 mmol/L [place] [facility].; [employer], [employer]. Urea nitrogen [Mass/Vol] 18 mg/dL Normal 7 - 25 mg/dL [facility].; [employer] Laboratory - Hematology and Cell countson 11-28-2021 Basophils (Bld) [#/Vol] 0.038 10*3/uL Normal 0 - 200 {cells/uL} [facility], [facility].; [facility], [facility]. Basophils/100 WBC (Bld) 0.9 % Normal [facility].; [facility], [facility] Eosinophils (Bld) [#/Vol] 0.315 10*3/uL Normal 15 - 500 {cells/uL} [facility], [facility].; [facility], [facility] Eosinophils/100 WBC (Bld) 7.5 % Normal [facility]; [facility], [facility] Erythrocyte distribution width (RBC) [Ratio] 13.0 % Normal 11.0 - 15.0 % [facility], [facility].; [facility], [facility] Hematocrit (Bld) [Volume fraction] 47.6 % Abnormal 35.0 - 45.0 % [facility], [facility].; [facility], [facility] Hemoglobin (Bld) [Mass/Vol] 16.0 g/dL Abnormal 11.7 - 15.5 g/dL [facility].; [facility], [facility] Lymphocytes (Bld) [#/Vol] 1 10*3/uL Normal 850 - 3900 {cells/uL} [facility], [facility].; [facility], [facility] Lymphocytes/100 WBC (Bld) 23.8 % Normal [facility] [facility] [employer] [facility]; [place] [facility], [facility]. MCH (RBC) [Entitic mass] 30.4 pg Normal 27.0 - 33.0 pg [facility].; [facility], [facility]. MCHC (RBC) [Mass/Vol] 33.6 g/dL Normal 32.0 - 36.0 g/dL [facility], [facility].; [place] [facility], [facility]. MCV (RBC) [Entitic vol] 90.3 fL Normal 80.0 - 100.0 fL [facility], [facility].; [facility], [facility] Monocytes (Bld) [#/Vol] 0.328 10*3/uL Normal 200 - 950 {cells/uL} [facility], [facility].; [place] [employer], [facility] Monocytes/100 WBC (Bld) 7.8 % Normal [facility], [facility].; [employer] Neutrophils (Bld) [#/Vol] 2.52 10*3/uL Normal 1500 - 7800 {cells/uL} [employer]. Neutrophils/100 WBC (Bld) 60 % Normal [employer]. Platelet mean volume (Bld) [Entitic vol] 10.6 fL Normal 7.5 - 12.5 fL [employer]. Platelets (Bld) [#/Vol] 158 10*3/uL Normal 140 - 400 [employer].; [employer]. RBC (Bld) [#/Vol] 5.27 10*6/uL Abnormal 3.80 - 5.1 0 {Million/uL} [employer]. WBC (Bld) [#/Vol] 4.2 10*3/uL Normal 3.8 - 10.8 [employer] No Panel Informationon 11-28 [id number] See Below Normal [employer] Work Phone: BUN/CREATININE RATIO NOT APPLICABLE Normal - [employer] CLIENT CONTACT: GÉNESIS Alegre [facility] [employer]; [employer] Work Phone: GLOBULIN 2.8 Normal 1.9 - 3.7 [employer] TEST CODE: [id number] Normal [employer]. Work Phone: TEST NAME: JASON Normal [employer] Work Phone: CBC (INCLUDES DIFF/PLT)on Basophils (Bld) [#/Vol] 0.041 10*3/uL Normal 0-200 [facility] Comment on above: Performed By: #### 6 399, 2290, 79461 #### [facility] [place] [address], [address] [place] [address] Tree Specialist: Stewart Angel MD Basophils/100 WBC (Bld) 1.0 % Normal [facility] Comment on above: Performed By: #### 6 399, 7600, 20207 #### [facility] of [place] [address] Tree Specialist: Stewart Angel MD Eosinophils (Bld) [#/Vol] 0.373 10*3/uL Normal 15-500 [facility] Comment on above: Performed By: #### 6 399, 7600, 86939 #### [facility] of [place] [address] Tree Specialist: Stewart Angel MD Eosinophils/100 WBC (Bld) 9.1 % Normal [facility] Comment on above: Performed By: #### 6 399, 7600, 12100 #### [facility] of [place] [address] Tree Specialist: Stewart Angel MD Erythrocyte distribution width (RBC) [Ratio] 12.9 % Normal 11.0-15.0 [facility] Comment on above: Performed By: #### 6 399, 7600, 00016 #### [facility] of [place] [address] Tree Specialist: Stewart Angel MD Hematocrit (Bld) [Volume fraction] 49.4 % High 35.0-45.0 [facility] Comment on above: Performed By: #### 6 399, 7600, 13401 #### [facility] [place] [address] Tree Specialist: Stewart Angel MD Hemoglobin (Bld) [Mass/Vol] 16.7 g/dL High 11.7-15.5 [facility] Comment on above: Performed By: #### 6 399, 7600, 02892 #### [facility] of [place] [address] Tree Specialist: Stewart Angel MD Lymphocytes (Bld) [#/Vol] 1.078 10*3/uL Normal 850-3900 [facility] Comment on above: Performed By: #### 6 399, 7600, 09049 #### [facility] [place] [address] Tree Specialist: Stewart Angel MD Lymphocytes/100 WBC (Bld) 26.3 % Normal [facility] Comment on above: Performed By: #### 6 399, 7600, 05337 #### [facility] of [place] [address] Tree Specialist: Stewart Angel MD MCH (RBC) [Entitic mass] 31.0 pg Normal 27.0-33.0 [facility] Comment on above: Performed By: #### 6 399, 7600, 28009 #### [facility] [place] [address] Tree Specialist: Stewart Angel MD MCHC (RBC) [Mass/Vol] 33.8 g/dL Normal 32.0-36.[address] [facility] Comment on above: Performed By: #### 6 399, 7600, 05546 #### [facility] [place] [address] Tree Specialist: Stewart Angel MD MCV (RBC) [Entitic vol] 91.7 fL Normal 80.0-100.0 [facility] Comment on above: Performed By: #### 6 399, 7600, 35673 #### [facility] of [place] [address] Tree Specialist: Stewart Angel MD Monocytes (Bld) [#/Vol] 0.344 10*3/uL Normal 200-950 [facility] Comment on above: Performed By: #### 6 399, 7600, 98513 #### [facility] of [place] [address] Tree Specialist: Stewart Angel MD Monocytes/100 WBC (Bld) 8.4 % Normal [facility] Comment on above: Performed By: #### 6 399, 7600, 27473 #### [facility] of [address], [address] [place] [address] Tree Specialist: Stewart Angel MD Neutrophils (Bld) [#/Vol] 2.263 10*3/uL Normal 0241-1759 [facility] Comment on above: Performed By: #### 6 399, 7600, 40456 #### [facility] of [address], [address] [place] [address] Tree Specialist: Stewart Angel MD Neutrophils/100 WBC (Bld) 55.2 % Normal [facility] Comment on above: Performed By: #### 6 399, 7600, 71259 #### [facility] of [place] [address] Tree Specialist: Stewart Angel MD Platelet mean volume (Bld) [Entitic vol] 10.7 fL Normal 7.5-12.5 [facility] Comment on above: Performed By: #### 6 399, 7600, 76612 #### [facility] of [place] [address] Tree Specialist: Stewart Angel MD Platelets (Bld) [#/Vol] 153 10*3/uL Normal 140-400 [facility] Comment on above: Performed By: #### 6 399, 7600, 86340 #### [facility] [place] [address] Tree Specialist: Stewart Angel MD RBC (Bld) [#/Vol] 5.39 10*6/uL High 3.80-5.10 [facility] Comment on above: Performed By: #### 6 399, 7600, 40079 #### [facility] of [place] [address] Tree Specialist: Stewart Angel MD WBC (Bld) [#/Vol] 4.1 10*3/uL Normal 3.8-10.8 [facility] Comment on above: Performed By: #### 6 399, 7600, 86246 #### [facility] of [address], [address] [place] [address] Tree Specialist: Stewart Angel [facility]-22-2021 Albumin [Mass/Vol] 4.7 g/dL Normal 3.6-5.1 [facility] Comment on above: Performed By: #### 6 399, 7600, 09066 #### [facility] of [address], [address] [place] [address] Tree Specialist: Stewart Angel MD Albumin/Globulin [Mass ratio] 1.7 {ratio} Normal 1.0-2.5 [facility] Comment on above: Performed By: #### 6 399, 7600, 38302 #### [facility] of [address], [address] [place] [address] Tree Specialist: Stewart Angel MD ALP [Catalytic activity/Vol] 95 U/L Normal 37-153 [facility] Comment on above: Performed By: #### 6 399, 7600, 23456 #### [facility] of [address], [address] [place] [address] Tree Specialist: Stewart Angel MD ALT [Catalytic activity/Vol] 57 U/L High 6-29 [facility] Comment on above: Performed By: #### 6 399, 7600, 34145 #### [facility] of [address], [address] [place] [address] Tree Specialist: Stewart Angel MD AST [Catalytic activity/Vol] 49 U/L High 10-35 [facility] Comment on above: Performed By: #### 6 399, 7600, 19596 #### [facility] of [address], [address] [place] [address] Tree Specialist: Stewart Angel MD Bilirubin [Mass/Vol] 1.2 mg/dL Normal 0.2-1.2 [facility] Comment on above: Performed By: #### 6 399, 7600, 43097 #### [facility] of [address], [address] [place] [address] Tree Specialist: Stewart Angel MD BUN/CREATININE RATIO NOT APPLICABLE Normal 6-22 [facility] Comment on above: Performed By: #### 6 399, 7600, 85422 #### [facility] of [address], [address] [place] [address] Tree Specialist: Stewart Angel MD Calcium [Mass/Vol] 9.6 mg/dL Normal 8.6-10.4 [facility] Comment on above: Performed By: #### 6 399, 7600, 11402 #### [facility] of [address], [address] [place] [address] Tree Specialist: Stewart Angel MD Chloride [Moles/Vol] 102 mmol/L Normal 98-110 [facility] Comment on above: Performed By: #### 6 399, 7600, 80052 #### [facility] of [address], [address] [place] [address] Tree Specialist: Stewart Angel MD CO2 [Moles/Vol] 29 mmol/L Normal 20-32 [facility] Comment on above: Performed By: #### 6 399, 7600, 29556 #### [facility] of [address], [address] [place] [address] Tree Specialist: Stewart Angel MD Creatinine [Mass/Vol] 0.85 mg/dL Normal 0.50-0.[address] [facility] Comment on above: Result Comment: For patients >49 years of age, the reference limit for Creatinine is approximately 13% higher for people identified as -Citizen Of [place]. Performed By: #### 6 399, 7600, 07467 #### [facility] [address], [address] [place] [address] Tree Specialist: Stewart Angel MD eGFR NON-AFR. PAKISTANI 73 mL/min/1.73m2 Normal > OR = 60 [facility] Comment on above: Performed By: #### 6 399, 7600, 01486 #### [facility] of [address], [address] [place] [address] Tree Specialist: Stewart Angel MD GFR/1.73 sq M.predicted among blacks MDRD (S/P/Bld) [Vol rate/Area] 85 mL/min/{1.73_m2} Normal > OR = 60 [facility] Comment on above: Performed By: #### 6 399, 7600, 56626 #### [facility] of [address], [address] [place] [address] Tree Specialist: Stewart Angel MD Globulin (S) [Mass/Vol] 2.7 g/dL Normal 1.9-3.7 [facility] Comment on above: Performed By: #### 6 399, 7600, 16585 #### [facility] of [place] [address] Tree Specialist: Stewart Angel MD Glucose [Mass/Vol] 93 mg/dL Normal 65-99 [facility] Comment on above: Result Comment: Fasting reference interval Performed By: #### 6 399, 7600, 70057 #### [facility] of [address], [address] [place] [address] Tree Specialist: Stewart Angel MD Potassium [Moles/Vol] 4.0 mmol/L Normal 3.5-5.[address] [facility] Comment on above: Performed By: #### 6 399, 7600, 80305 #### [facility] [place] [address] Tree Specialist: Stewart Angel MD Protein [Mass/Vol] 7.4 g/dL Normal 6.1-8.1 [facility] Comment on above: Performed By: #### 6 399, 7600, 63080 #### [facility] of [place] [address] Tree Specialist: Stewart Angel MD Sodium [Moles/Vol] 140 mmol/L Normal 135-146 [facility] Comment on above: Performed By: #### 6 399, 7600, 58432 #### [facility] of [place] [address] Tree Specialist: Stewart Angel MD Urea nitrogen [Mass/Vol] 14 mg/dL Normal 7-25 [facility] Comment on above: Performed By: #### 6 399, 7600, 83851 #### [facility] of [address], [address] [place] [address] Tree Specialist: Stewart Angel MD LIPID PANEL, [facility] - Cholesterol [Mass/Vol] 118 mg/dL Normal <200 [facility] Comment on above: Performed By: #### 6 399, 7600, 66775 #### [facility] of [address], [address] [place] [address] Tree Specialist: Stewart Angel MD Cholesterol in HDL [Mass/Vol] 50 mg/dL Normal > OR = 50 [facility] Comment on above: Performed By: #### 6 399, 7600, 12367 #### [facility] [address], [address] [place] [address] Tree Specialist: Stewart Angel MD Cholesterol in LDL [Mass/Vol] 51 mg/dL Normal [facility] Comment on above: Result Comment: Refe rence range: <100 Desirable range <100 mg/dL for primary prevention; <70 mg/dL for patients with CHD or diabetic patients with > or = 2 CHD risk factors. LDL-C is now calculated using the Jr-Brianna calculation, which is a validated novel method providing better accuracy than the Friedewald equation in the estimation of LDL-C. Jr FRANKS et al. JERI. 2013;310(19): 1877-3092 (http://education.ESKY.Tuolar.com/faq/NFN857) Performed By: #### 6 399, 7600, 13802 #### [facility] of [address], [address] [place] [address] Tree Specialist: Stewart Angel MD Cholesterol.total/Bettina sterol in HDL [Mass ratio] 2.4 {ratio} Normal <5.0 [facility] Comment on above: Performed By: #### 6 399, 7600, 00430 #### [facility] [address], [address] [place] [address] Tree Specialist: Stewart Angel MD NON HDL CHOLESTEROL 68 mg/dL (calc) Normal <130 [facility] Comment on above: Result Comment: For patients with diabetes plus 1 major ASCVD risk factor, treating to a non-HDL-C goal of <100 mg/dL (LDL-C of <70 mg/dL) is considered a therapeutic option. Performed By: #### 6 399, 7600, 03245 #### [facility] [address], [address] [place], [place] [id number] Tree Specialist: Stewart Angel MD Triglyceride [Mass/Vol] 85 mg/dL Normal <150 [facility] Comment on above: Performed By: #### 6 399, 7600, 61378 #### [facility] [address], [address] [place], [place] [id number] Tree Specialist: Stewart Angel MD Laboratory - Chemistry and C hemistry - challengeon 05-20-2021 Albumin [Mass/Vol] 4.7 g/dL Normal 3.6 - 5.1 g/dL [facility], [facility].; [employer], [facility]. Albumin/Globulin [Mass ratio] 1.7 {ratio} Normal 1.0 - 2.5 [place] [facility], [facility].; [employer], [employer]. ALP [Catalytic activity/Vol] 95 U/L Normal 37 - 153 U/L [facility], [facility].; [employer] ALT [Catalytic activity/Vol] 57 U/L Abnormal 6 - 29 U/L [facility], [facility].; [employer] AST [Catalytic activity/Vol] 49 U/L Abnormal 10 - 35 U/L [place] [employer], [facility].; [employer], [facility]. Bilirubin [Mass/Vol] 1.2 mg/dL Normal 0.2 - 1 .2 mg/dL [place] [facility], [facility].; [employer], [employer]. Calcium [Mass/Vol] 9.6 mg/dL Normal 8.6 - 10. 4 mg/dL [place] [facility], [facility].; [employer], [employer]. Chloride [Moles/Vol] 102 mmol/L Normal 98 - 11 0 mmol/L [place] [facility], [facility].; [employer], [employer]. Cholesterol [Mass/Vol] 118 mg/dL Normal [facility] [facility].; [facility], [facility] Cholesterol in HDL [Mass/Vol] 50 mg/dL Normal [facility] [employer] [facility].; [facility], [facility]. Cholesterol in LDL [Mass/Vol] 51 mg/dL Normal [facility], [facility].; [place] [employer], [facility]. CO2 [Moles/Vol] 29 mmol/L Normal 20 - 32 mmol/L [facility] [employer] [facility].; [place] [facility], [facility]. Creatinine [Mass/Vol] 0.85 mg/dL Normal 0.50 - 0.99 mg/dL [facility], [facility].; [facility], [facility]. GFR/1.73 sq M.predicted among blacks MDRD (S/P/Bld) [Vol rate/Area] 85 mL/min/{1.73_m2} Normal [facility], [facility].; [place] [employer], [facility]. Glucose [Mass/Vol] 93 mg/dL Normal 65 - 99 mg/dL [facility] [employer] [facility].; [place] [facility], [facility]. Potassium [Moles/Vol] 4.0 mmol/L Normal 3.5 - 5.3 mmol/L [facility] [employer] [facility].; [place] [employer], [employer]. Protein [Mass/Vol] 7.4 g/dL Normal 6.1 - 8.1 g/dL [place] [facility], [facility].; [place] [employer] Sodium [Moles/Vol] 140 mmol/L Normal 135 - 146 mmol/L [facility], [facility].; [place] [employer], [facility]. Triglyceride [Mass/Vol] 85 mg/dL Normal [facility].; [place] [employer], [facility]. Urea nitrogen [Mass/Vol] 14 mg/dL Normal 7 - 25 mg/dL [place] [facility] [facility].; [place] [employer], [employer]. Laboratory - Hematology and Cell countson 05-20-2021 Basophils (Bld) [#/Vol] 0.041 10*3/uL Normal 0 - 200 {cells/uL} [place] [employer], [facility].; [place] [employer] Basophils/100 WBC (Bld) 1.0 % Normal [facility].; [place] [employer] Eosinophils (Bld) [#/Vol] 0.373 10*3/uL Normal 15 - 500 {cells/uL} [facility] [facility].; [facility] [employer] [facility] Eosinophils/100 WBC (Bld) 9.1 % Normal [facility] [employer] [facility].; [facility], [facility] Erythrocyte distribution width (RBC) [Ratio] 12.9 % Normal 11.0 - 15.0 % [facility], [facility].; [facility], [facility] Hematocrit (Bld) [Volume fraction] 49.4 % Abnormal 35.0 - 45.0 % [facility] [facility].; [facility], [facility] Hemoglobin (Bld) [Mass/Vol] 16.7 g/dL Abnormal 11.7 - 15.5 g/dL [facility] [employer] [facility].; [facility], [facility] Lymphocytes (Bld) [#/Vol] 1.078 10*3/uL Normal 850 - 3900 {cells/uL} [facility], [facility].; [facility], [facility] Lymphocytes/100 WBC (Bld) 26.3 % Normal [facility] [employer] [facility]; [place] [employer], [facility]. MCH (RBC) [Entitic mass] 31.0 pg Normal 27.0 - 33.0 pg [facility] [employer] [facility].; [place] [facility], [facility]. MCHC (RBC) [Mass/Vol] 33.8 g/dL Normal 32.0 - 36.0 g/dL [facility], [facility].; [place] [facility], [facility]. MCV (RBC) [Entitic vol] 91.7 fL Normal 80.0 - 100.0 fL [facility] [employer] [facility].; [place] [facility], [facility]. Monocytes (Bld) [#/Vol] 0.344 10*3/uL Normal 200 - 950 {cells/uL} [facility] [employer] [facility].; [place] [employer], [facility]. Monocytes/100 WBC (Bld) 8.4 % Normal [facility] [employer] [facility] [facility].; [facility], [facility] Neutrophils (Bld) [#/Vol] 2.263 10*3/uL Normal 1500 - 7800 {cells/uL} [facility], [facility].; [place] [employer], [facility] Neutrophils/100 WBC (Bld) 55.2 % Normal [facility] [employer] [facility]; [facility] [employer] [facility]. Platelet mean volume (Bld) [Entitic vol] 10.7 fL Normal 7.5 - 12.5 fL [facility] [employer] [facility]; [place] [facility] [employer] [facility] Platelets (Bld) [#/Vol] 153 10*3/uL Normal 140 - 400 [facility] [employer] [facility]; [place] [facility] HospitalC[facility] RBC (Bld) [#/Vol] 5.39 10*6/uL Abnormal 3.80 - 5.1 0 {Million/uL} [facility] [employer] [facility]; [place] [employer] [facility] WBC (Bld) [#/Vol] 4.1 10*3/uL Normal 3.8 - 10.8 [facility] [employer] [facility]; [place] [facility] [employer] [facility] No Panel Informationon 05-20 BUN/CREATININE RATIO NOT APPLICABLE Normal - [facility] [employer] [facility]; [place] [employer] CHOL/HDLC RATIO 2.4 Normal [facility] [employer] [facility]; [place] [facility] Hospital[facility] eGFR NON-AFR. PAKISTANI 73 Normal [facility] [employer] [facility]; [place] [employer] [facility] GLOBULIN 2.7 Normal 1.9 - 3.7 [facility] [employer] [facility]; [place] [facility] [employer] [facility] NON HDL CHOLESTEROL 68 Normal [facility] [facility]; [place] [employer] [facility] Laboratory - Chemistry and C hemistry - challengeon 03-05-2020 Albumin [Mass/Vol] 3.4 g/dL Normal 3.2 - 5.0 g/dL [facility] [employer] [facility].; [place] [employer] [facility] Albumin/Globulin [Mass ratio] 0.9 {ratio} Normal 0.9 - 2.4 {RATIO} [facility] [employer] [facility].; [place] [employer]. ALT [Catalytic activity/Vol] 85 U/L Abnormal 13 - 56 U/L [facility] [employer] [facility].; [place] [employer], [employer]. AST [Catalytic activity/Vol] 66 U/L Abnormal 15 - 37 U/L [facility] [employer] [facility].; [place] [employer], [employer]. Bilirubin [Mass/Vol] 1.20 mg/dL Abnormal 0.20 - 1.00 mg/dL [facility] [employer] [facility].; [place] [employer]. Calcium [Mass/Vol] 8.6 mg/dL Normal 8.5 - 10. 1 mg/dL [facility], [facility].; [facility], [facility]. Chloride [Moles/Vol] 106 mmol/L Normal 98 - 10 7 mmol/L [facility], [facility].; [facility] [employer] Cholesterol [Mass/Vol] 102 mg/dL Normal [facility], [facility].; [facility], [facility] Cholesterol in HDL [Mass/Vol] 31 mg/dL Abnormal [facility], [facility].; [facility], [employer] Cholesterol in LDL [Mass/Vol] 45 mg/dL Normal 0 - 130 mg/dL [facility], [facility].; [facility], [facility]. Cholesterol in VLDL [Mass/Vol] 26 mg/dL Normal 5 - 40 mg/dL [facility], [facility].; [place] [employer], [employer]. CO2 [Moles/Vol] 30.0 mmol/L Normal 21.0 - 32.0 mmol/L [facility], [facility].; [place] [facility], [facility]. Creatinine [Mass/Vol] 0.70 mg/dL Normal 0.55 - 1.02 mg/dL [facility], [facility].; [place] [employer], [facility] Center. Ferritin [Mass/Vol] 588 ng/mL Abnormal 8 - 252 ng/mL [facility] [employer] [facility].; [place] [facility], [facility]. GFR/1.73 sq M.predicted among non-blacks MDRD (S/P/Bld) [Vol rate/Area] 90 mL/min/{1.73_m2} Normal [facility], [facility].; [place] [facility], [facility]. Globulin (S) [Mass/Vol] 3.9 g/dL Normal 2.2 - 4.2 g/dL [facility], [facility].; [place] [employer] Glucose [Mass/Vol] 95 mg/dL Normal 74 - 106 mg/dL [facility], [facility].; [place] [facility], [employer] Potassium [Moles/Vol] 3.6 mmol/L Normal 3.5 - 5.1 mmol/L [facility], [facility].; [place] [facility], [employer] Sodium [Moles/Vol] 142 mmol/L Normal 136 - 145 mmol/L [facility], [facility].; [employer]. Triglyceride [Mass/Vol] 132 mg/dL Normal H [employer]. Urea nitrogen [Mass/Vol] 15 mg/dL Normal 7 - 18 mg/dL [place] [employer]. Laboratory - Hematology and Cell countson 03-05-2020 Basophils/100 WBC (Bld) 0.4 % Normal 0 - 1 % [facility] [employer].; [employer]. Eosinophils/100 WBC (Bld) 4.4 % Normal 0 - 5 % [place] [employer]. Erythrocyte distribution width (RBC) [Ratio] 12.5 % Normal 11.6 - 14.6 % [place] [employer], [employer]. Hematocrit (Bld) [Volume fraction] 43.3 % Normal 37 - 47 % [place] [employer], [employer]. Hemoglobin (Bld) [Mass/Vol] 14.1 g/dL Normal 12.0 - 15.0 g/dL [place] [employer]. Lymphocytes/100 WBC (Bld) 16.0 % Abnormal 19 - 41 % [employer].; [employer], [employer]. MCH (RBC) [Entitic mass] 29.4 pg Normal 27.0 - 32.0 pg [employer].; [employer], [employer]. MCHC (RBC) [Mass/Vol] 32.6 g/dL Normal 32 - 36 g/dL [facility] [employer]. MCV (RBC) [Entitic vol] 90.2 fL Normal 81 - 99 fL [facility].; [employer], [employer]. Monocytes/100 WBC (Bld) 8.4 % Normal 0 - 10 % [facility] [employer], [employer]. Neutrophils/100 WBC (Bld) 69.9 % Normal 47 - 70 % [employer], [employer].; [employer], [employer]. Platelet mean volume (Bld) [Entitic vol] 10.2 fL Normal 6.2 - 12.0 fL [employer].; [employer]. Platelets (Bld) [#/Vol] 188 10*3/uL Normal 150 - 450 K/mm3 [facility] [employer] [facility].; [employer] RBC (Bld) [#/Vol] 4.80 10*6/uL Normal 4.2 - 5.4 {M/mm3} [facility] [employer] [facility].; [employer] WBC (Bld) [#/Vol] 4.5 10*3/uL Normal 4.4 - 11.0 K/mm3 [facility] [employer] [facility].; [employer] No Panel Informationon 03-05 Absolute Lymph 0.72 {X10_3/uL} Abnormal 0.83 - 4.5 1 {X10_3/uL} [place] [facility] [employer] [facility].; [employer], [employer] Absolute Neut 3.1 {X10_3/uL} Normal 2.0 - 7.7 {X10_3/uL} [employer] [facility].; [employer]. ALK P 101 U/L Normal 45 - 117 U/L [place] [employer] [facility].; [employer] BUN/CRE 21.3 {RATIO} Abnormal 10 - 20 {RATIO} [employer].; [employer] EST GFR - AA 109 mL/min Normal [place] [facility] [employer] [facility]; [employer] GAP 6 Normal 5 - 15 [place] [facility].; [employer] IM GRAN % 0.900 % Normal 0.0 - 0.9 % [place] [facility] [employer] [facility].; [employer] NRBC, FLAGGED 0 % Normal 0 - 5 % [place] [employer] RDW SD 41.3 fL Normal 35.1 - 43.9 fL [employer]; [employer] T PROT 7.3 g/dL Normal 6.4 - 8.2 g/dL [place] [employer] Laboratory - Chemistry and C hemistry - challengeon 01-15-2020 Bilirubin [Mass/Vol] Negative Normal [facility] [employer] Bilirubin Ql (U) Negative Normal [facility] [facility].; [employer]. Glucose [Mass/Vol] NORM Normal [facility] [facility].; [employer]. Ketones Ql (U) Negative Normal [facility] [employer] [facility].; [employer]. pH (Bld) 7 [pH] Normal [place] [facility] [employer] [facility].; [employer]. pH (U) 7.0 [pH] Normal [place] [facility] [employer] [facility].; [employer]. Protein [Mass/Vol] Negative Normal [facility] [facility].; [employer]. Specific gravity (U) [Rel density] 1.025 Normal [place] [facility] [employer] [facility].; [employer] Urobilinogen Qn (U) 0.2 mg/dL Normal [facility].; [employer]. Laboratory - Hematology and Cell countson 01-15-2020 Hemoglobin Ql (U) trace, hemolyzed [facility]normal [facility] [employer]. WBC (Bld) [#/Vol] Negative Normal [place] [facility].; [employer]. Laboratory - Microbiology an d Antimicrobial susceptibilityon 01-15-2020 Bacteria identified Cx Nom (U) CULTURE URINE Normal [place] [facility] [employer] [facility].; [employer]. Bacteria identified Cx Nom (Unsp spec) NONE Normal [place] [facility] [employer] [facility].; [employer]. Laboratory - Specimen inform ationon 01-15-2020 Appearance (U) clear Normal [place] [facility].; [employer]. Clarity (U) clear Normal [facility] [employer] Color (U) yellow Normal [facility] [employer].; [employer]. Color (U) p.yel Normal [place] [employer]. Specimen type Nom (Spec) R Normal [facility] [employer]. Laboratory - Urinalysison Crystals LM Nom (Urine sed) NONE Normal [place] [employer]. Glucose Test strip (U) [Mass/Vol] Negative Normal [employer]. Leukocyte esterase Test strip Ql (U) Negative Normal [employer]. Nitrite Ql (U) Negative Normal [employer], [employer]. Protein Ql (U) Negative Normal [employer], [employer]. Urinalysis dipstick W Reflex Microscopic panel (U) URINALYSIS WITH MICROSCOPY Normal [employer]. Yeast LM Ql (Urine sed) NONE Normal [facility].; [employer]. No Panel Informationon 01-14 Amorphous NONE Normal [employer] Blood 10 Abnormal [employer] Casts NONE Normal [employer]. Epi Cells OCC Normal [employer]. Ketone Negative Normal [employer]. Mucous NONE Normal [employer]. Rbc 0-5 Normal 0 - 3 [employer]. Sp [place] 1.015 Normal [employer]. Urobilinog NORM Normal [employer]. Wbc NONE Normal 0 - 5 [employer]. CMPon 12-08-2019 A:G RATIO 1.53 Normal 1.1-2.5 [facility] Comment on above: Performed By: #### L 304.0240, L100.0005 #### [facility] [address] [place] [address] Albumin [Mass/Vol] 4.3 g/dL Normal 3.5-5.2 [facility] Comment on above: Performed By: #### L 304.0240, L100.0005 #### [facility] - [facility] [address] [place] [address] ALK. PHOS 94 U/L Normal 35-105 [facility] Comment on above: Performed By: #### L 304.0240, L100.0005 #### [facility] - [facility] [address] [place] [address] 63822 ALT [Catalytic activity/Vol] 53 U/L High 5-33 [facility] Comment on above: Performed By: #### L 304.0240, L100.0005 #### [facility] [address] [place] [address] 30965 Anion gap [Moles/Vol] 13.1 mmol/L Low 15-22 [facility] Comment on above: Performed By: #### L 304.0240, L100.0005 #### [facility] [address] [place] [address] 89805 AST [Catalytic activity/Vol] 41 U/L [facility] 5-32 [facility] Comment on above: Performed By: #### L 304.0240, L100.0005 #### [facility] [address] [place] [address] 69889 Bilirubin Ql (U) 0.8 mg/dL Normal 0.2-1.2 [facility] Comment on above: Performed By: #### L 304.0240, L100.0005 #### [facility] [address] [place] [address] 27365 Calcium [Mass/Vol] 9.6 mg/dL Normal 8.8-10.2 [facility] Comment on above: Performed By: #### L 304.0240, L100.0005 #### [facility] [address] [place] [address] 90256 Chloride [Moles/Vol] 103 mmol/L Normal 98-107 [facility] Comment on above: Performed By: #### L 304.0240, L100.0005 #### [facility] [address] [place] [address] 75886 CO2 [Moles/Vol] 31 mmol/L High 22-29 [facility] Comment on above: Performed By: #### L 304.0240, L100.0005 #### [facility] [address] [place] [address] 49019 Creatinine [Mass/Vol] 0.77 mg/dL Normal 0.50-0.90 [facility] Comment on above: Performed By: #### L 304.0240, L100.0005 #### [facility] [address] [place] [address] 07542 eGFR if AFR CHARMAINE > 60 ml/min/1.73m2 [facility] Comment on above: Result Comment: eGFR >= 60 Indicates normal kidney function. * eGFR IS AN ESTIMATE * (AFR CHARMAINE = ) (non-AFR AM = NON-) MDRD calculation used in the eGFR should not be used to dose medications. For further limitations of the eGFR please refer to the Physician Website or the National Kidney Disease Education Program website (www.nkdep.nih.gov). Performed By: #### L 304.0240, L100.0005 #### [facility] [address] [place] [address] 14290 eGFR nonAFR Charmaine > 60 ml/Min/1.73m2 [facility] Comment on above: Performed By: #### L 304.0240, L100.0005 #### [facility] [address] [place] [address] 46318 Globulin (S) [Mass/Vol] 2.8 g/dL Normal 1.5-4.5 [facility] Comment on above: Performed By: #### L 304.0240, L100.0005 #### [facility] [address] [place] [address] 00130 Glucose [Mass/Vol] 72 mg/dL Low 82-115 [facility] Comment on above: Performed By: #### L 304.0240, L100.0005 #### [facility] [address] [place] [address] 90628 Potassium [Moles/Vol] 4.1 mmol/L Normal 3.5-5.0 [facility] Comment on above: Performed By: #### L 304.0240, L100.0005 #### [facility] [address] [place] [address] 36976 Protein [Mass/Vol] 7.1 g/dL Normal 6.4-8.3 [facility] Comment on above: Performed By: #### L 304.0240, L100.0005 #### [facility] [address] [place] [address] 22285 Sodium [Moles/Vol] 143 mmol/L Normal 135-145 [facility] Comment on above: Performed By: #### L 304.0240, L100.0005 #### [facility] [address] [place] [address] 79895 Urea nitrogen [Mass/Vol] 17 mg/dL Normal 8-23 [facility] Comment on above: Performed By: #### L 304.0240, L100.0005 #### [facility] [address] [place] [address] 20058 FERRITINon 12-08-2019 Ferritin [Mass/Vol] 387.5 ng/mL High 13-150 [facility] Comment on above: Performed By: #### L 304.0240, L100.0005 #### [facility] [address] [place] [address] 65396 IRON & TIBCon 12-08-2019 % FE. SAT. 33 % High 10-32 [facility] Comment on above: Performed By: #### L 100.0400 #### [facility] [address] [place] [address] 21998 Iron [Mass/Vol] 115 ug/dL Normal 37-145 [facility] Comment on above: Performed By: #### L 100.0400 #### [facility] [address] [place] [address] 06193 TIBC 339 mg/dL Normal 269-535 [facility] Comment on above: Performed By: #### L 100.0400 #### [facility] [address] [place] [address] 00400 Transferrin [Mass/Vol] 242 mg/dL Normal 192-382 [facility] Comment on above: Performed By: #### L 100.0400 #### [facility] [address] [place] [address] Metabolic Panelon 12-08-2019 Albumin [Mass/Vol] 4.3 g/dL 3.5 - 5.2 g/dL [facility] ALP [Catalytic activity/Vol] 94 U/L 35 - 105 [facility] ALT [Catalytic activity/Vol] 53 U/L High 5 - 33 U/L [facility] Anion gap [Moles/Vol] 13.1 mmol/L Low 15 - 2 2 mmol/L [facility] AST [Catalytic activity/Vol] 41 U/L High 5 - 32 U/L [facility] Bilirubin [Mass/Vol] 0.8 mg/dL 0.2 - 1 .2 mg/dL [facility] Calcium [Mass/Vol] 9.6 mg/dL 8.8 - 10. 2 mg/dL [facility] Chloride [Moles/Vol] 103 mmol/L 98 - 10 7 mmol/L [facility] CO2 [Moles/Vol] 31 mmol/L High 22 - 29 mmol/L [facility] Creatinine [Mass/Vol] 0.77 mg/dL 0.50 - 0.90 mg/dL [facility] GFR/1.73 sq M predicted among blacks MDRD (S/P/Bld) [Vol rate/Area] > 60 ml/min/1.73m2 [facility] GFR/1.73 sq M predicted among non-blacks MDRD (S/P/Bld) [Vol rate/Area] > 60 ml/Min/1.73m2 [facility] Glucose [Mass/Vol] 72 mg/dL Low 82 - 115 mg/dL [facility] Potassium [Moles/Vol] 4.1 mmol/L 3.5 - 5.0 mmol/L [facility] Protein [Mass/Vol] 7.1 g/dL 6.4 - 8.3 g/dL [facility] Sodium [Moles/Vol] 143 mmol/L 135 - 145 mmol/L [facility] Urea nitrogen [Mass/Vol] 17 mg/dL 8 - 23 mg/dL [facility] Iron [Mass/Vol] 115 ug/dL 37 - 145 ug/dL [facility] Otheron 12-08-2019 Albumin/Globulin [Mass ratio] 1.53 {ratio} 1.1 - 2.5 [facility] Ferritin [Mass/Vol] 387.5 ng/mL High 13 - 150 ng/mL [facility] Globulin (S) [Mass/Vol] 2.8 g/dL 1.5 - 4.5 g/dL [facility] % Saturation (TIBC) 33 % High 10 - 32 % [facility] TIBC 339 mg/dL 269 - 535 mg/dL [facility] Transferrin [Mass/Vol] 242 mg/dL 192 - 382 mg/dL [facility] CMPon 09-15-2019 A:G RATIO 1.84 Normal 1.1-2.5 [facility] Comment on above: Performed By: #### L 100.0005, L304.0240 #### [facility] [address] [place] [address] 66742 Albumin [Mass/Vol] 4.6 g/dL Normal 3.5-5.2 [facility] Comment on above: Performed By: #### L 100.0005, L304.0240 #### [facility] [address] [place] [address] 33601 ALK. PHOS 89 U/L Normal 35-105 [facility] Comment on above: Performed By: #### L 100.0005, L304.0240 #### [facility] [address] [place] [address] 49286 ALT [Catalytic activity/Vol] 40 U/L High 5-33 [facility] Comment on above: Performed By: #### L 100.0005, L304.0240 #### [facility] [address] [place] [address] 30661 Anion gap [Moles/Vol] 15.3 mmol/L Normal 15-22 [facility] Comment on above: Performed By: #### L 100.0005, L304.0240 #### [facility] [address] [place] [address] 43507 AST [Catalytic activity/Vol] 36 U/L High 5-32 [facility] Comment on above: Performed By: #### L 100.0005, L304.0240 #### [facility] [address] [place] [address] 30237 Bilirubin Ql (U) 1.0 mg/dL Normal 0.2-1.2 [facility] Comment on above: Performed By: #### L 100.0005, L304.0240 #### [facility] [address] [place] [address] 86915 Calcium [Mass/Vol] 10.6 mg/dL High 8.8-10.2 [facility] Comment on above: Performed By: #### L 100.0005, L304.0240 #### [facility] [address] [place] [address] 87343 Chloride [Moles/Vol] 101 mmol/L Normal 98-107 [facility] Comment on above: Performed By: #### L 100.0005, L304.0240 #### [facility] [address] [place] [address] 45031 CO2 [Moles/Vol] 29 mmol/L Normal 22-29 [facility] Comment on above: Performed By: #### L 100.0005, L304.0240 #### [facility] [address] [place] [address] 26395 Creatinine [Mass/Vol] 0.64 mg/dL Normal 0.50-0.90 [facility] Comment on above: Performed By: #### L 100.0005, L304.0240 #### [facility] [address] [place] [address] 28538 eGFR if AFR CHARMAINE > 60 ml/min/1.73m2 [facility] Comment on above: Result Comment: eGFR >= 60 Indicates normal kidney function. * eGFR IS AN ESTIMATE * (AFR CHARMAINE = ) (non-AFR AM = NON-) MDRD calculation used in the eGFR should not be used to dose medications. For further limitations of the eGFR please refer to the Physician Website or the National Kidney Disease Education Program website (www.nkdep.nih.gov). Performed By: #### L 100.0005, L304.0240 #### [facility] [address] [place] [address] 77458 eGFR nonAFR Charmaine > 60 ml/Min/1.73m2 Normal U [facility] Comment on above: Performed By: #### L 100.0005, L304.0240 #### [facility] [address] [place] [address] 32318 Globulin (S) [Mass/Vol] 2.5 g/dL Normal 1.5-4.5 [facility] Comment on above: Performed By: #### L 100.0005, L304.0240 #### [facility] [address] [place] [address] 06318 Glucose [Mass/Vol] 92 mg/dL Normal 82-115 [facility] Comment on above: Performed By: #### L 100.0005, L304.0240 #### [facility] [address] [place] [address] 86141 Potassium [Moles/Vol] 4.3 mmol/L Normal 3.5-5.0 [facility] Comment on above: Performed By: #### L 100.0005, L304.0240 #### [facility] [address] [place] [address] 03761 Protein [Mass/Vol] 7.1 g/dL Normal 6.4-8.3 [facility] Comment on above: Performed By: #### L 100.0005, L304.0240 #### [facility] [address] [place] [address] 13448 Sodium [Moles/Vol] 141 mmol/L Normal 135-145 [facility] Comment on above: Performed By: #### L 100.0005, L304.0240 #### [facility] [address] [place] [address] 21119 Urea nitrogen [Mass/Vol] 15 mg/dL Normal 8-23 [facility] Comment on above: Performed By: #### L 100.0005, L304.0240 #### [facility] [address] [place] [address] 97728 FERRITINon 09-15-2019 Ferritin [Mass/Vol] 317.8 ng/mL High 13-150 [facility] Comment on above: Performed By: #### L 100.0005, L304.0240 #### [facility] [address] [place] [address] 14615 IRON & TIBCon 09-15-2019 % FE. SAT. 45 % High 10-32 [facility] Comment on above: Performed By: #### L 100.0400 #### [facility] [address] [place] [address] 45554 Iron [Mass/Vol] 157 ug/dL High 37-145 [facility] Comment on above: Performed By: #### L 100.0400 #### [facility] [address] [place] [address] 71206 TIBC 347 mg/dL Normal 269-535 [facility] Comment on above: Performed By: #### L 100.0400 #### [facility] [address] [place] [address] 84735 Transferrin [Mass/Vol] 248 mg/dL Normal 192-382 [facility] Comment on above: Performed By: #### L 100.0400 #### [facility] - [facility] [address] [place] [address] 91261 Metabolic Panelon 09-15-2019 Albumin [Mass/Vol] 4.6 g/dL 3.5 - 5.2 g/dL [facility] ALP [Catalytic activity/Vol] 89 U/L 35 - 105 U/L [facility] ALT [Catalytic activity/Vol] 40 U/L High 5 - 33 U/L [facility] Anion gap [Moles/Vol] 15.3 mmol/L 15 - 2 2 mmol/L [facility] AST [Catalytic activity/Vol] 36 U/L High 5 - 32 U/L [facility] Bilirubin [Mass/Vol] 1.0 mg/dL 0.2 - 1 .2 mg/dL [facility] Calcium [Mass/Vol] 10.6 mg/dL High 8.8 - 10. 2 mg/dL [facility] Chloride [Moles/Vol] 101 mmol/L 98 - 10 7 mmol/L [facility] CO2 [Moles/Vol] 29 mmol/L 22 - 29 mmol/L [facility] Creatinine [Mass/Vol] 0.64 mg/dL 0.50 - 0.90 mg/dL [facility] GFR/1.73 sq M predicted among blacks MDRD (S/P/Bld) [Vol rate/Area] > 60 ml/min/1.73m2 [facility] GFR/1.73 sq M predicted among non-blacks MDRD (S/P/Bld) [Vol rate/Area] > 60 ml/Min/1.73m2 [facility] Glucose [Mass/Vol] 92 mg/dL 82 - 115 mg/dL [facility] Iron [Mass/Vol] 157 ug/dL High 37 - 145 ug/dL [facility] Potassium [Moles/Vol] 4.3 mmol/L 3.5 - 5.0 mmol/L [facility] Protein [Mass/Vol] 7.1 g/dL 6.4 - 8.3 g/dL [facility] Sodium [Moles/Vol] 141 mmol/L 135 - 145 mmol/L [facility] Urea nitrogen [Mass/Vol] 15 mg/dL 8 - 23 mg/dL [facility] Otheron 09-15-2019 % Saturation (TIBC) 45 % High 10 - 32 % [facility] Albumin/Globulin [Mass ratio] 1.84 {ratio} 1.1 - 2.5 [facility] Ferritin [Mass/Vol] 317.8 ng/mL High 13 - 150 ng/mL [facility] Globulin (S) [Mass/Vol] 2.5 g/dL 1.5 - 4.5 g/dL [facility] TIBC 347 mg/dL 269 - 535 mg/dL [facility] Transferrin [Mass/Vol] 248 mg/dL 192 - 382 mg/dL [facility] CMPon 06-16-2019 A:G RATIO 1.46 Normal 1.1-2.5 [facility] Comment on above: Performed By: #### L 100.0005, L304.0240 #### [facility] [address] [place] [address] Albumin [Mass/Vol] 4.4 g/dL Normal 3.5-5.2 [facility] Comment on above: Performed By: #### L 100.0005, L304.0240 #### [facility] [address] [place] [address] ALK. PHOS 87 U/L Normal 35-105 [facility] Comment on above: Performed By: #### L 100.0005, L304.0240 #### [facility] [address] [place] [address] 50755 ALT [Catalytic activity/Vol] 43 U/L High 5-33 [facility] Comment on above: Performed By: #### L 100.0005, L304.0240 #### [facility] [address] [place] [address] 73859 Anion gap [Moles/Vol] 18.1 mmol/L Normal 15-22 [facility] Comment on above: Performed By: #### L 100.0005, L304.0240 #### [facility] [address] [place] [address] 90256 AST [Catalytic activity/Vol] 36 U/L High 5-32 [facility] Comment on above: Performed By: #### L 100.0005, L304.0240 #### [facility] [address] [place] [address] 04542 Bilirubin Ql (U) 1.0 mg/dL Normal 0.2-1.2 [facility] Comment on above: Performed By: #### L 100.0005, L304.0240 #### [facility] [address] [place] [address] 46600 Calcium [Mass/Vol] 10.2 mg/dL Normal 8.8-10.2 [facility] Comment on above: Performed By: #### L 100.0005, L304.0240 #### [facility] [address] [place] [address] 29285 Chloride [Moles/Vol] 100 mmol/L Normal 98-107 [facility] Comment on above: Performed By: #### L 100.0005, L304.0240 #### [facility] [address] [place] [address] 39189 CO2 [Moles/Vol] 30 mmol/L High 22-29 [facility] Comment on above: Performed By: #### L 100.0005, L304.0240 #### [facility] [address] [place] [address] 48441 Creatinine [Mass/Vol] 0.70 mg/dL Normal 0.50-0.90 [facility] Comment on above: Performed By: #### L 100.0005, L304.0240 #### [facility] [address] [place] [address] 93793 eGFR if AFR CHARMAINE > 60 ml/min/1.73m2 [facility] Comment on above: Result Comment: eGFR >= 60 Indicates normal kidney function. * eGFR IS AN ESTIMATE * (AFR CHARMAINE = ) (non-AFR AM = NON-) MDRD calculation used in the eGFR should not be used to dose medications. For further limitations of the eGFR please refer to the Physician Website or the National Kidney Disease Education Program website (www.nkdep.nih.gov). Performed By: #### L 100.0005, L304.0240 #### [facility] [address] [place] [address] 28606 eGFR nonAFR Charmaine > 60 ml/Min/1.73m2 [facility] Comment on above: Performed By: #### L 100.0005, L304.0240 #### [facility] [address] [place] [address] 19590 Globulin (S) [Mass/Vol] 3.0 g/dL Normal 1.5-4.5 [facility] Comment on above: Performed By: #### L 100.0005, L304.0240 #### [facility] [address] [place] [address] 66089 Glucose [Mass/Vol] 90 mg/dL Normal 82-115 [facility] Comment on above: Performed By: #### L 100.0005, L304.0240 #### [facility] [address] [place] [address] 58547 Potassium [Moles/Vol] 4.1 mmol/L Normal 3.5-5.0 [facility] Comment on above: Performed By: #### L 100.0005, L304.0240 #### [facility] - [facility] [address] [place] [address] 02489 Protein [Mass/Vol] 7.4 g/dL Normal 6.4-8.3 [facility] Comment on above: Performed By: #### L 100.0005, L304.0240 #### [facility] [address] [place] [address] 13185 Sodium [Moles/Vol] 144 mmol/L Normal 135-145 [facility] Comment on above: Performed By: #### L 100.0005, L304.0240 #### [facility] [address] [place] [address] 04906 Urea nitrogen [Mass/Vol] 18 mg/dL Normal 8-23 [facility] Comment on above: Performed By: #### L 100.0005, L304.0240 #### [facility] [address] [place] [address] 13547 FERRITINon 06-16-2019 Ferritin [Mass/Vol] 324.7 ng/mL High 13-150 [facility] Comment on above: Performed By: #### L 100.0005, L304.0240 #### [facility] [address] [place] [address] 95221 IRON & TIBCon 06-16-2019 % FE. SAT. 36 % High 10-32 [facility] Comment on above: Performed By: #### L 100.0400 #### [facility] [address] [place] [address] 43919 Iron [Mass/Vol] 129 ug/dL Normal 37-145 [facility] Comment on above: Performed By: #### L 100.0400 #### [facility] [address] [place] [address] 95072 TIBC 358 mg/dL Normal 269-535 [facility] Comment on above: Performed By: #### L 100.0400 #### [facility] [address] [place] [address] 74623 Transferrin [Mass/Vol] 256 mg/dL Normal 192-382 [facility] Comment on above: Performed By: #### L 100.0400 #### [facility] [address] [place] [address] 53592 CMPon 06-02-2019 A:G RATIO 1.55 Normal 1.1-2.5 [facility] Comment on above: Performed By: #### L 304.0240, L100.0005 #### [facility] [address] [place] [address] 63497 Albumin [Mass/Vol] 4.5 g/dL Normal 3.5-5.2 [facility] Comment on above: Performed By: #### L 304.0240, L100.0005 #### [facility] [address] [place] [address] 09059 ALK. PHOS 92 U/L Normal 35-105 [facility] Comment on above: Performed By: #### L 304.0240, L100.0005 #### - LABORATORY [address] [place] [address] 22516 ALT [Catalytic activity/Vol] 44 U/L High 5-33 [facility] Comment on above: Performed By: #### L 304.0240, L100.0005 #### [facility] [address] [place] [address] 46547 Anion gap [Moles/Vol] 18.2 mmol/L Normal 15-22 [facility] Comment on above: Performed By: #### L 304.0240, L100.0005 #### [facility] [address] [place] [address] 31816 AST [Catalytic activity/Vol] 35 U/L High 5-32 [facility] Comment on above: Performed By: #### L 304.0240, L100.0005 #### [facility] [address] [place] [address] 52601 Bilirubin Ql (U) 1.2 mg/dL Normal 0.2-1.2 [facility] Comment on above: Performed By: #### L 304.0240, L100.0005 #### [facility] - [facility] [address] [place] [address] Calcium [Mass/Vol] 9.8 mg/dL Normal 8.8-10.2 [facility] Comment on above: Performed By: #### L 304.0240, L100.0005 #### [facility] - [facility] [address] [place] [address] 02553 Chloride [Moles/Vol] 101 mmol/L Normal 98-107 [facility] Comment on above: Performed By: #### L 304.0240, L100.0005 #### [facility] [address] [place] [address] 64640 CO2 [Moles/Vol] 27 mmol/L Normal 22-29 [facility] Comment on above: Performed By: #### L 304.0240, L100.0005 #### [facility] - [facility] [address] [place] [address] 55254 Creatinine [Mass/Vol] 0.74 mg/dL Normal 0.50-0.90 [facility] Comment on above: Performed By: #### L 304.0240, L100.0005 #### [facility] - [facility] [address] [place] [address] 47675 eGFR if AFR CHARMAINE > 60 ml/min/1.73m2 Normal [facility] Comment on above: Result Comment: eGFR >= 60 Indicates normal kidney function. * eGFR IS AN ESTIMATE * (AFR CHARMAINE = ) (non-AFR AM = NON-) MDRD calculation used in the eGFR should not be used to dose medications. For further limitations of the eGFR please refer to the Physician Website or the National Kidney Disease Education Program website (www.nkdep.nih.gov). Performed By: #### L 304.0240, L100.0005 #### [facility] [address] [place] [address] 69984 eGFR nonAFR Charmaine > 60 ml/Min/1.73m2 [facility] Comment on above: Performed By: #### L 304.0240, L100.0005 #### [facility] [address] [place] [address] 55527 Globulin (S) [Mass/Vol] 2.9 g/dL Normal 1.5-4.5 [facility] Comment on above: Performed By: #### L 304.0240, L100.0005 #### [facility] [address] [place] [address] 10072 Glucose [Mass/Vol] 99 mg/dL Normal 82-115 [facility] Comment on above: Performed By: #### L 304.0240, L100.0005 #### [facility] - [facility] [address] [place] [address] 21556 Potassium [Moles/Vol] 4.2 mmol/L Normal 3.5-5.0 [facility] Comment on above: Performed By: #### L 304.0240, L100.0005 #### [facility] [address] [place] [address] 16191 Protein [Mass/Vol] 7.4 g/dL Normal 6.4-8.3 [facility] Comment on above: Performed By: #### L 304.0240, L100.0005 #### [facility] [address] [place] [address] 46334 Sodium [Moles/Vol] 142 mmol/L Normal 135-145 [facility] Comment on above: Performed By: #### L 304.0240, L100.0005 #### [facility] [address] [place] [address] 82602 Urea nitrogen [Mass/Vol] 21 mg/dL Normal 8-23 [facility] Comment on above: Performed By: #### L 304.0240, L100.0005 #### [facility] - [facility] [address] [place] [address] 97706 FERRITINon 06-02-2019 Ferritin [Mass/Vol] 368.8 ng/mL High 13-150 [facility] Comment on above: Performed By: #### L 304.0240, L100.0005 #### [facility] [address] [place] [address] 68141 IRON & TIBCon 06-02-2019 % FE. SAT. 32 % Normal 10-32 [facility] Comment on above: Performed By: #### L 100.0400 #### [facility] [address] [place] [address] 21619 Iron [Mass/Vol] 110 ug/dL Normal 37-145 [facility] Comment on above: Performed By: #### L 100.0400 #### [facility] [address] [place] [address] 05288 TIBC 337 mg/dL Normal 269-535 [facility] Comment on above: Performed By: #### L 100.0400 #### [facility] [address] [place] [address] 57407 Transferrin [Mass/Vol] 241 mg/dL Normal 192-382 [facility] Comment on above: Performed By: #### L 100.0400 #### [facility] - [facility] [address] [place] [address] 46464 Laboratory - Chemistry and C hemistry - challengeon 05-04-2019 Iron binding capacity [Mass/Vol] 213 ug/dL Normal 118 - 369 ug/dL [facility] [facility].; [facility] [facility] Transferrin [Mass/Vol] 297 mg/dL Normal 220 - 400 mg/dL [facility] [employer] [facility] [facility]; [facility] [employer] [facility] Laboratory - Chemistry and C hemistry - challengeon 05-02-2019 Albumin [Mass/Vol] 4.8 g/dL Normal 3.5 - 5.0 g/dL [facility] [employer] [facility].; Franz [facility] [employer] [facility] Albumin/Globulin [Mass ratio] 1.8 {ratio} Abnormal [place] [facility] [employer] [facility]; [employer] [facility] [employer] [facility] ALP [Catalytic activity/Vol] 93 U/L Normal 50 - 136 U/L [facility] [facility] [employer] [facility].; [facility], [facility] ALT [Catalytic activity/Vol] 92 mmol/L Abnormal 12 - 49 mmol/L [place] [facility] [employer] [facility].; [facility], [facility]. AST [Catalytic activity/Vol] 72 U/L Abnormal 15 - 37 U/L [facility].; [employer] [facility] [employer] Bilirubin [Mass/Vol] 0.9 mg/dL Normal 0.3 - 1 .0 mg/dL [facility]; [facility] Bilirubin Ql (U) Negative Normal [facility]; [facility] Calcium [Mass/Vol] 9.8 mg/dL Normal 8.4 - 10. 6 mg/dL [facility]; [facility] Chloride [Moles/Vol] 103 mmol/L Normal 98 - 11 0 mmol/L [facility]; [facility] CO2 [Moles/Vol] 23 {artur/L} Normal 22.0 - 32.0 {artur/L} [facility]; [facility] Creatinine [Mass/Vol] 0.89 mg/dL Normal 0.6 - 1.4 mg/dL [facility]; [facility] Erythropoietin (EPO) Qn 7.3 [IU]/L Normal 2.6 - 18.5 [facility]; [facility] Ferritin [Mass/Vol] 466 ng/mL Abnormal 10 - 120 ng/mL [facility]; [facility] Globulin (S) [Mass/Vol] 2.7 g/dL Normal 1.5 - 3.8 g/dL [facility]; [facility] [employer] [facility] Glucose [Mass/Vol] 97 mg/dL Normal 75 - 105 mg/dL [facility]; [facility] [employer] [facility] Iron [Mass/Vol] 125 ug/dL Normal 50 - 170 ug/dL [facility]; [facility] Ketones Ql (U) Negative Normal [facility]; [facility] [employer] [facility] pH (U) 7.0 [pH] Normal [facility]; [facility] [employer] [facility] [facility] Potassium [Moles/Vol] 4.5 mmol/L Normal 3.50 - 5.00 meq/L [facility]; [facility] [employer] [facility] Protein [Mass/Vol] 7.5 g/dL Normal 6.4 - 8.2 g/dL [facility]; [facility] [employer] [facility] Sodium [Moles/Vol] 142 mmol/L Normal 136 - 145 mmol/L [facility] [employer] [facility].; [facility] [employer] [facility] Specific gravity (U) [Rel density] 1.020 Normal [facility]; [place] [facility] [employer] [facility] Urea nitrogen [Mass/Vol] 17 mg/dL Normal 7.0 - 20.0 mg/dL [facility] [employer] [facility]; [facility] [employer] [facility] Urea nitrogen/Creatinine [Mass ratio] 19 mg/mg Normal 0 - 30 [facility] [employer] [facility] [facility]; [facility] [employer] [facility] Laboratory - Hematology and Cell countson 05-02-2019 Basophils/100 WBC (Bld) 0.0 % Normal 0.00 - 0.10 [facility] [employer] [facility]; [facility] [employer] [facility] Basophils/100 WBC (Bld) 1 % Normal 0.0 - 2.0 % [facility] [employer] [facility]; [facility] [employer] [facility] Eosinophils/100 WBC (Bld) 0.4 % Normal 0.00 - 0.50 [facility] [employer] [facility]; [facility] [employer] [facility] Eosinophils/100 WBC (Bld) 7 % Abnormal 0.0 - 6.0 % [facility] [employer] [facility]; [place] [facility] [employer] [facility] Erythrocyte distribution width (RBC) [Ratio] 13.2 % Normal 12.0 - 15.6 % [facility] [employer] [facility].; [place] [facility], [facility] Hematocrit (Bld) [Volume fraction] 46.8 % Abnormal 34 - 44 % [facility] [employer] [facility]; [place] [facility] [employer] [facility] Hemoglobin (Bld) [Mass/Vol] 16.6 g/dL Abnormal 11.5 - 14.2 g/dL [facility] [employer] [facility].; [place] [facility] [employer] [facility] Hemoglobin Ql (U) Negative Normal [facility] [employer] [facility]; [place] [facility] [employer] [facility] Lymphocytes/100 WBC (Bld) 1.3 % Normal [facility] [employer] [facility].; [facility], [facility] Lymphocytes/100 WBC (Bld) 22 % Normal 20.0 - 45.0 % [facility] [employer] [facility].; [place] [employer] [facility] MCH (RBC) [Entitic mass] 31.5 pg Normal 27 - 33 pg [facility], [facility].; [employer]. MCHC (RBC) [Mass/Vol] 35.5 g/dL Normal 32 - 36 g/dL [facility] [employer].; [employer], [employer]. MCV (RBC) [Entitic vol] 89 fL Normal 80 - 99 fL [facility] [employer], [employer]. Monocytes/100 WBC (Bld) 0.4 % Normal [facility] [employer] [facility].; [employer], [employer]. Monocytes/100 WBC (Bld) 7 % Normal 2.0 - 13.0 % [place] [employer].; [employer], [employer]. Neutrophils/100 WBC (Bld) 63 % Normal 46 - 76 % Franz [employer].; [employer], [employer]. Platelet mean volume (Bld) [Entitic vol] - Normal 6.6 - 10.5 fL [place] [employer].; [employer], [employer]. Platelets (Bld) [#/Vol] 207 10*9{Cells}/L Normal 150 - 450 10*9{Cells}/ L [place] [employer] [facility].; [employer]. RBC (Bld) [#/Vol] 5.27 10*6/uL Normal 4.10 - 5.3 0 10*6/uL Franz [employer].; [employer], [employer]. WBC (Bld) [#/Vol] 6.1 10*9{Cells}/L Normal 4.5 - 10.8 10*9{Cells}/ L [facility] [employer].; [employer], [employer]. Laboratory - Specimen inform ationon 05-02-2019 Appearance (U) Clear Normal [employer] [facility].; [employer]. Color (U) Yellow Normal [employer].; [employer], [employer]. Laboratory - Urinalysison Epithelial cells LM.HPF (Urine sed) [#/Area] 0-10 Normal 0 - 2 {hpf} [employer].; [employer], [employer]. Glucose Test strip (U) [Mass/Vol] Negative Normal [employer].; [employer], [employer]. Leukocyte esterase Test strip Ql (U) Negative Normal [facility].; [employer]. Nitrite Ql (U) Negative Normal [place] [employer].; [employer]. Protein Ql (U) Negative Normal [facility].; [employer], [employer]. RBC LM.HPF (Urine sed) [#/Vol] 0-2 Normal 0 - 2 {hpf} [facility].; [employer] Reducing substances (U) [Mass/Vol] - Normal [facility] [employer]. Urinalysis microscopic panel (Urine sed) - Normal [place] [employer].; [employer]. WBC LM.HPF (Urine sed) [#/Area] 0-5 Normal 0 - 2 {hpf} [place] [employer].; [employer]. No Panel Informationon 05-02 GFR 70 Normal [place] [facility].; [employer] GFR2 81 Normal [place] [employer].; [employer] NEUTROPHILS 3.9 10*6/uL Normal 1.5 - 7.1 10*6/uL [place] [employer].; [employer]. UA - COMMENTS - Normal [facility] [employer] [facility].; [employer]. UA - UROBILINOGEN 0.2 mg/dL Normal [place] [employer].; [employer]. Laboratory - Chemistry and C hemistry - challengeon 02-22-2015 Albumin [Mass/Vol] 4.5 g/dL Normal 3.4 - 4.8 g/dL [place] [employer].; [employer]. Albumin [Mass/Vol] 1.6 g/dL Normal 0.9 - 1.6 [place] [employer].; [employer]. ALP [Catalytic activity/Vol] 76 U/L Normal 38 - 126 U/L [place] [employer] [facility].; [employer], [employer]. ALT [Catalytic activity/Vol] 27 U/L Normal 8 - 35 U/L [place] [employer].; [employer]. ALT No additional P-5'-P [Catalytic activity/Vol] 27 U/L Normal 8 - 35 U/L [facility].; [facility], [facility] Anion gap [Moles/Vol] 8 mmol/L Abnormal 10 - 2 0 mmol/L [facility].; [facility]. AST [Catalytic activity/Vol] 26 U/L Normal 13 - 39 U/L [facility]; [facility], [facility] Bilirubin [Mass/Vol] 1.0 mg/dL Normal 0.0 - 1 .5 mg/dL [facility]; [facility], [facility] Calcium [Mass/Vol] 9.6 mg/dL Normal 8.6 - 10. 2 mg/dL [facility]; [facility] Chloride [Moles/Vol] 103 mmol/L Normal 98 - 10 7 mmol/L [facility]; [facility], [facility] Cholesterol [Mass/Vol] 116 mg/dL Normal 0 - 2 00 mg/dL [facility]; [facility], [facility] Cholesterol in HDL [Mass or moles/Vol] 41 mg/dL Normal 40 - 60 mg/dL [facility]; [facility], [facility] Cholesterol in LDL [Mass/Vol] 63 mg/dL Normal 0 - 129 mg/dL [facility].; [facility], [facility] Cholesterol.total/Bettina sterol in HDL [Mass ratio] 2.8 {ratio} Normal 0.0 - 5.0 [facility]; [facility], [facility] CO2 [Moles/Vol] 33.0 mmol/L Abnormal 13.0 - 29.0 mmol/L [facility].; [facility], [facility] Comprehensive metabolic 2000 panel CMP with eGFR Normal [facility]; [facility], [facility] Creatinine [Mass/Vol] 0.8 mg/dL Normal 0.6 - 1.2 mg/dL [facility].; [facility], [facility]. GFR/1.73 sq M.predicted among blacks MDRD (S/P/Bld) [Vol rate/Area] mL/min/{1.73_m2} Normal 60 - 999 {ML/MINUTE} [facility]; [facility] [employer] GFR/1.73 sq M.predicted MDRD (S/P/Bld) [Vol rate/Area] mL/min/{1.73_m2} Normal 60 - 999 {ML/MINUTE} [facility] [employer] [facility].; [place] [facility], [facility] Globulin (S) [Mass/Vol] 2.9 g/dL Normal 1.5 - 3.8 g/dL [facility] [employer] [facility].; [place] [facility] [employer] [facility]. Glucose [Mass/Vol] 88 mg/dL Normal 74 - 106 mg/dL [facility] [employer] [facility].; [employer] [facility] [employer] [facility]. Lipid 1996 panel LIPID PROFILE Normal [facility] [employer] [facility].; [place] [facility], [facility] Potassium [Moles/Vol] 3.6 mmol/L Normal 3.5 - 5.1 mmol/L [facility] [employer] [facility].; [place] [facility], [facility]. Protein [Mass/Vol] 7.4 g/dL Normal 6.4 - 8.3 g/dL [facility] [employer] [facility].; [place] [employer] [facility]. Sodium [Moles/Vol] 140 mmol/L Normal 136 - 145 mmol/L [facility] [employer] [facility].; [employer]. Triglyceride [Mass/Vol] 61 mg/dL Normal 0 - 150 mg/dL [place] [facility] [employer] [facility].; [employer] [facility]. Urea nitrogen [Mass/Vol] 18 mg/dL Normal 6 - 20 mg/dL [place] [facility] [employer] [facility].; [employer]. Urea nitrogen/Creatinine [Mass ratio] 23 {ratio} Normal 0 - 30 {ratio} [place] [facility] [employer] [facility].; [employer] No Panel Informationon 02-22 AGE 55 {years} Normal [place] [employer] [facility].; [employer]. Laboratory - Chemistry and C hemistry - challengeon 06-04-2014 Cancer Ag 125 Qn CA-125 Normal [facility] [employer] [facility].; [employer] Cancer Ag 19-9 Qn CA 19-9 Normal [facility] [employer] [facility].; [employer], [employer]. Carcinoembryonic Ag [Mass/Vol] CEA Normal [employer].; [employer] Vital Signs Date Time Vital Sign Value Performing Clinician Facility 09-11-2024 08:54-0400 Body height 161.29 cm [facility], [facility].; [facility]. 09-11-2024 08:54-0400 Body mass index (BMI) [Ratio] 26.47 kg/m2 [facility].; [facility]. 09-11-2024 08:54-0400 Body surface area Derived from formula 1.73 m2 Bhavya Danii [facility], [facility].; [facility] 09-11-2024 08:54-0400 Body [facility].; [facility] 09-11-2024 08:54-0400 Diastolic blood pressure 67 mm[Hg] Bhavya N [facility].; [facility], [facility]. Comment on above: Patient Position: Sitting; Cuff Location : Left Arm; Cuff Size: Standard 09-11-2024 08:54-0400 Heart rate 69 /min Bhavya Danii [facility].; [facility], [facility]. Comment on above: Pattern: Regular 09-11-2024 08:54-0400 Systolic blood pressure 103 mm[Hg] Bhavya Danii [facility], [facility].; [facility], [facility]. Comment on above: Patient Position: Sitting; Cuff Location : Left Arm; Cuff Size: Standard 08-07-2024 08:54-0400 Body height 162.56 cm Sanjuanita Garcia PA Work Phone: [facility] 08-07-2024 08:54-0400 Body mass index (BMI) [Ratio] 26.4 kg/m2 Sanjuanita Garcia PA Work Phone: [facility] 08-07-2024 08:54-0400 Body weight 69.85 kg Sanjuanita Garcia PA Work Phone: [facility] 08-07-2024 08:54-0400 Diastolic blood pressure 81 mm[Hg] Sanjuanita Garcia PA Work Phone: [facility] 08-07-2024 08:54-0400 Heart rate 88 /min Sanjuanita GARAY Work Phone: [facility] 08-07-2024 08:54-0400 SaO2% (BldA) [Mass fraction] 99 % Sanjuanita GARAY Work Phone: [facility] 08-07-2024 08:54-0400 Systolic blood pressure 128 mm[Hg] Sanjuanita GARAY Work Phone: [facility] 07-05-2024 09:36-0400 Body height 161.29 cm Génesis Colon LPN [facility], Inc.; [employer]. 07-05-2024 09:36-0400 Body mass index (BMI) [Ratio] 26.68 kg/m2 Génesis Colon SENIOR CASE MANAGER [facility], [facility].; [facility] 07-05-2024 09:36-0400 Body surface area Derived from formula 1.74 m2 Génesis Colon LPN [facility], [facility].; [employer], [employer]. 07-05-2024 09:36-0400 Body temperature 96.7 [degF] Génesis Colon SENIOR CASE MANAGER [place] [facility].; [employer]. Comment on above: Method: Tympanic 07-05-2024 09:36-0400 Body weight 69.4 kg Génesis Colon LPN [facility], [facility].; [employer] 07-05-2024 09:36-0400 Diastolic blood pressure 82 mm[Hg] Génesis Colon LPN [facility].; [employer]. Comment on above: Patient Position: Sitting; Cuff Location : Left Arm; Cuff Size: Standard 07-05-2024 09:36-0400 Heart rate 72 /min Génesis Colon LPN [place] [facility] [employer]. Comment on above: Pattern: Regular 07-05-2024 09:36-0400 Systolic blood pressure 115 mm[Hg] Génesis Colon LPN [facility].; [facility]. Comment on above: Patient Position: Sitting; Cuff Location : Left Arm; Cuff Size: Standard 12-13-2023 08:33-0400 Body height 161.29 cm Génesis Colon SENIOR CASE MANAGER [facility].; [facility]. 12-13-2023 08:33-0400 Body mass index (BMI) [Ratio] 26.68 kg/m2 [facility]is [facility]. 12-13-2023 08:33-0400 Body surface area Derived from formula 1.74 m2 Génesis Colon [facility].; [facility] 12-13-2023 08:33-0400 Body weight 69.4 kg Génesis Albert Colon SENIOR CASE MANAGER [facility].; [facility]. 12-13-2023 08:33-0400 Diastolic blood pressure 83 mm[Hg] Génesis Colon SENIOR CASE MANAGER [facility].; [facility] [employer] [facility]. Comment on above: Patient Position: Sitting; Cuff Location : Left Arm; Cuff Size: Standard 12-13-2023 08:33-0400 Heart rate 80 /min Génesis Colon SENIOR CASE MANAGER [facility].; [facility] [employer] [facility]. Comment on above: Pattern: Regular 12-13-2023 08:33-0400 Systolic blood pressure 119 mm[Hg] Génesis Colon [facility]. Comment on above: Patient Position: Sitting; Cuff Location : Left Arm; Cuff Size: Standard 03-11-2023 09:01-0500 Body height 162.56 cm PA Sanjuanita GARAY Work Phone: [facility] 03-11-2023 09:01-0500 Body mass index (BMI) [Ratio] 26.7 kg/m2 PA Sanjuanita Garcia PA Work Phone: [facility] 03-11-2023 09:01-0500 Body weight 70.76 kg PA Sanjuanita Garcia PA Work Phone: [facility] 03-11-2023 09:01-0500 Diastolic blood pressure 87 mm[Hg] PA Sanjuanitasherrie Garcia PA Work Phone: [facility] 03-11-2023 09:01-0500 Heart rate 72 /min PA Sanjuanitasherrie Garcia PA Work Phone: [facility] 03-11-2023 09:01-0500 SaO2% (BldA) [Mass fraction] 96 % PA Sanjuanitasherrie Garcia PA Work Phone: [facility] 03-11-2023 09:01-0500 Systolic blood pressure 139 mm[Hg] PA Sanjuanita Garcia PA Work Phone: [facility] 01-08-2023 08:26-0400 Body height 162.56 cm Génesis Colon LPN [facility], [facility].; [facility], [facility]. 01-08-2023 08:26-0400 Body mass index (BMI) [Ratio] 26.26 kg/m2 Génesis Colon LPN [facility], [facility].; [facility], [facility]. 01-08-2023 08:26-0400 Body surface area Derived from formula 1.75 m2 Génesis Colon LPN [facility], [facility].; [place] [facility], [facility]. 01-08-2023 08:26-0400 Body weight 69.4 kg Génesis Colon LPN [facility], [facility].; [facility], [facility]. 01-08-2023 08:26-0400 Diastolic blood pressure 77 mm[Hg] Génesis Colon LPN [facility].; [facility], [facility]. Comment on above: Patient Position: Sitting; Cuff Location : Left Arm; Cuff Size: Standard 01-08-2023 08:26-0400 Heart rate 80 /min Génesis Colon LPN [facility], [facility].; [employer] Comment on above: Pattern: Regular 01-08-2023 08:26-0400 Systolic blood pressure 120 mm[Hg] Génesis Colon LPN [facility].; [facility] [employer] [employer] Comment on above: Patient Position: Sitting; Cuff Location : Left Arm; Cuff Size: Standard 02-12-2022 08:12-0500 Body height 162.56 cm PA Sanjuanita Garcia PA Work Phone: 8(198)536-271527 [address] 02-12-2022 08:12-0500 Body mass index (BMI) [Ratio] 25.4 kg/m2 PA Sanjuanita Garcia PA Work Phone: 1(191)299-662799 [place] [address] 02-12-2022 08:12-0500 Body weight 67.13 kg PA Sanjuanita Garcia PA Work Phone: 2(485)785-979036 [place] [address] 02-12-2022 08:12-0500 Diastolic blood pressure 83 mm[Hg] PA Sanjuanita Garcia PA Work Phone: 9(420)965-735099 [place] [address] 02-12-2022 08:12-0500 Heart rate 94 /min PA Sanjuanita Garcia PA Work Phone: 1(598)024-527599 [place] [address] 02-12-2022 08:12-0500 SaO2% (BldA) [Mass fraction] 98 % PA Sanjuanita Garcia PA Work Phone: 1(067)509-215236 [place] [address] 02-12-2022 08:12-0500 Systolic blood pressure 129 mm[Hg] PA Sanjuanita Garcai PA Work Phone: 8(962)746-944936 [place] [address] 12-16-2021 09:22-0400 Body height 162.56 cm PA Sanjuanita Garcia PA Work Phone: 1(510)984-408536 [place] [address] Work Phone: 12-16-2021 09:22-0400 Body mass index (BMI) [Ratio] 25.2 kg/m2 PA Sanjuanita Garcia PA Work Phone: 5(775)943-080427 [address] 12-16-2021 09:22-0400 Body weight 66.67 kg PA Sanjuanita Garcia PA Work Phone: 1(446)936-253736 [place] [address] 12-16-2021 09:22-0400 Diastolic blood pressure 98 mm[Hg] PA Sanjuanita Garcia PA Work Phone: 6(594)223-972433 [place] [address] 12-16-2021 09:22-0400 Heart rate 72 /min PA Sanjuanitasherrie Garcia TANISHA Work Phone: [facility] 12-16-2021 09:22-0400 SaO2% (BldA) [Mass fraction] 98 % PA Sanjuanita Garcia PA Work Phone: [facility] 12-16-2021 09:22-0400 Systolic blood pressure 141 mm[Hg] PA Sanjuanitasherrie Garcia TANISHA Work Phone: [facility] 05-29-2021 09:20-0400 Body height 162.56 cm Génesis Colon [facility].; [facility] [facility]. 05-29-2021 09:20-0400 Body mass index (BMI) [Ratio] 26.61 kg/m2 Génesis Colon [facility] [employer] 05-29-2021 09:20-0400 Body surface area Derived from formula 1.76 m2 Génesis Colon SENIOR CASE MANAGER [place] [facility].; [employer], [employer]. 05-29-2021 09:20-0400 Body weight 70.31 kg Génesis Price Darlene [facility].; [employer]. 05-29-2021 09:20-0400 Diastolic blood pressure 78 mm[Hg] Génesis Colon SENIOR CASE MANAGER [place] [facility].; [employer]. Comment on above: Patient Position: Sitting; Cuff Location : Left Arm; Cuff Size: Standard 05-29-2021 09:20-0400 Heart rate 69 /min Génesis Colon LPN [place] [facility].; [employer]. Comment on above: Pattern: Regular 05-29-2021 09:20-0400 Systolic blood pressure 118 mm[Hg] Génesis Colon SENIOR CASE MANAGER [employer] [facility].; [employer] Comment on above: Patient Position: Sitting; Cuff Location : Left Arm; Cuff Size: Standard 01-29-2020 08:56-0500 Body height 161.29 cm Génesis Colon SENIOR CASE MANAGER [place] [facility].; [employer]. 01-29-2020 08:56-0500 Body mass index (BMI) [Ratio] 28.6 kg/m2 Génesis Emersonach [facility], [facility].; [employer] [facility]. 01-29-2020 08:56-0500 Body surface area Derived from formula 1.79 m2 Génesis Colon [facility], [facility].; [employer]. 01-29-2020 08:56-0500 Body weight 74.39 kg Génesis Colon [facility] [employer] [facility].; [employer]. 01-29-2020 08:56-0500 Diastolic blood pressure 77 mm[Hg] Génesis Colon [facility].; [employer]. Comment on above: Patient Position: Sitting; Cuff Location : Left Arm; Cuff Size: Standard 01-29-2020 08:56-0500 Heart rate 75 /min Génesis Emersonach [facility] [employer] [facility].; [employer]. Comment on above: Pattern: Regular 01-29-2020 08:56-0500 Systolic blood pressure 125 mm[Hg] Génesis Colon [facility] [employer] [facility].; [employer]. Comment on above: Patient Position: Sitting; Cuff Location : Left Arm; Cuff Size: Standard 01-15-2020 10:01-0500 Body height 161.29 cm Génesis Rosaleslabach SENIOR CASE MANAGER [place] [facility], [facility].; [employer] [facility]. 01-15-2020 10:01-0500 Body mass index (BMI) [Ratio] 28.94 kg/m2 Génesis Colon [facility] [employer] [facility].; [employer]. 01-15-2020 10:01-0500 Body surface area Derived from formula 1.8 m2 Génesis Emersonach [facility] [employer] [facility].; [employer]. 01-15-2020 10:01-0500 Body temperature 97.7 [degF] Génesis Emersonach [facility].; [employer]. Comment on above: Method: Tympanic 01-15-2020 10:01-0500 Body weight 75.3 kg Génesis Price Darlene SANDERSON [facility], [facility].; [employer] [facility] Hospital[facility] [employer] [facility]. 01-15-2020 10:01-0500 Diastolic blood pressure 81 mm[Hg] Génesis Price Darlene SANDERSON [facility].; [employer] [facility] Hospital[facility] [employer] [facility]. Comment on above: Patient Position: Sitting; Cuff Location : Left Arm; Cuff Size: Standard 01-15-2020 10:01-0500 Heart rate 74 /min Génessi Albert Colon LPN [facility].; [employer] Comment on above: Pattern: Regular 01-15-2020 10:01-0500 Systolic blood pressure 118 mm[Hg] Génesis Price Darlene SANDERSON [employer] [facility] [employer] [facility].; [employer], [facility]. Comment on above: Patient Position: Sitting; Cuff Location : Left Arm; Cuff Size: Standard 04-28-2019 10:51-0500 Body height 161.29 cm Sanjuanita Garcia PA-C Work Phone: [employer].; [employer] 04-28-2019 10:51-0500 Body mass index (BMI) [Ratio] 27.03 kg/m2 Sanjuanita Garcia PA-C Work Phone: [employer].; [employer] [facility]. 04-28-2019 10:51-0500 Body surface area Derived from formula 1.75 m2 Sanjuanita Garcia PA-C Work Phone: [employer].; [employer]. 04-28-2019 10:51-0500 Body weight 70.31 kg Sanjuanita Garcia PA-C Work Phone: [employer].; [employer]. 04-28-2019 10:51-0500 Diastolic blood pressure 80 mm[Hg] Sanjuanita Garcia PA-C Work Phone: [employer].; [employer]. Comment on above: Patient Position: Sitting; Cuff Location : Right Arm; Cuff Size: Standard 04-28-2019 10:51-0500 Heart rate 81 /min Sanjuanita Garcia PA-C Work Phone: [employer].; [employer]. Comment on above: Pattern: Regular 04-28-2019 10:51-0500 Systolic blood pressure 121 mm[Hg] Sanjuanita Garcia PA-C Work Phone: [employer].; [employer]. Comment on above: Patient Position: Sitting; Cuff Location : Right Arm; Cuff Size: Standard 02-25-2018 08:52-0500 Body height 161.29 cm Claudine Silva RN [employer].; [employer]. 02-25-2018 08:52-0500 Body mass index (BMI) [Ratio] 26.85 kg/m2 Claudine Sivla RN [employer].; [employer]. 02-25-2018 08:52-0500 Body surface area Derived from formula 1.74 m2 Claudine Silva RN [employer].; [employer]. 02-25-2018 08:52-0500 Body weight 69.85 kg Claudine Silva RN [employer].; [employer]. 02-25-2018 08:52-0500 Diastolic blood pressure 90 mm[Hg] Claudine Silva RN [employer].; [employer]. Comment on above: Patient Position: Sitting; Cuff Location : Right Arm; Cuff Size: Standard 02-25-2018 08:52-0500 Heart rate 91 /min Claudine Silva RN [employer].; [employer]. Comment on above: Pattern: Regular 02-25-2018 08:52-0500 Systolic blood pressure 134 mm[Hg] Claudine Silva RN [employer].; [employer]. Comment on above: Patient Position: Sitting; Cuff Location : Right Arm; Cuff Size: Standard 05-01-2017 10:55-0500 Body height 161.29 cm Ivania Emily SANDERSON [employer]. 05-01-2017 10:55-0500 Body mass index (BMI) [Ratio] 27.37 kg/m2 Tess Diaz [facility].; [facility] 05-01-2017 10:55-0500 Body surface area Derived from formula 1.75 m2 Tess Diaz [facility] [employer] [facility] 05-01-2017 10:55-0500 Body temperature 98.7 [degF] IvaniaTasha Diaz [facility].; [employer] Comment on above: Method: Tympanic 05-01-2017 10:55-0500 Body weight 71.22 kg Tses Diaz [facility] [employer] 05-01-2017 10:55-0500 Diastolic blood pressure 88 mm[Hg] Tess Diaz [facility] [employer], [employer]. Comment on above: Patient Position: Sitting; Cuff Location : Left Arm; Cuff Size: Large 05-01-2017 10:55-0500 Heart rate 123 /min Tess Diaz [facility] [employer], [employer]. Comment on above: Pattern: Regular 05-01-2017 10:55-0500 Inhaled oxygen concentration 20 % IvaniaTasha Diaz [facility] [employer] Comment on above: Room air 05-01-2017 10:55-0500 Inhaled oxygen concentration 21 % Ivania Stuckey [facility] [employer], [employer]. Comment on above: Room air 05-01-2017 10:55-0500 SaO2% (BldA) [Mass fraction] 98 % Ivania Stuckey [facility] [employer], [employer]. 05-01-2017 10:55-0500 Systolic blood pressure 142 mm[Hg] IvaniaTasha Diaz [facility] [employer], [employer]. Comment on above: Patient Position: Sitting; Cuff Location : Left Arm; Cuff Size: Large 08-24-2016 09:31-0400 Body weight 72.12 kg Iliana Wengerd [facility] [employer] 08-24-2016 09:31-0400 Diastolic blood pressure 76 mm[Hg] Iliana Debo SANDERSON [facility] [employer] Comment on above: Patient Position: Sitting; Cuff Location : Left Arm; Cuff Size: Standard 08-24-2016 09:31-0400 Heart rate 90 /min Iliana Edmondson LPN [facility] [employer] Comment on above: Pattern: Regular 08-24-2016 09:31-0400 Systolic blood pressure 111 mm[Hg] Iliana Debo SANDERSON [facility] [employer] Comment on above: Patient Position: Sitting; Cuff Location : Left Arm; Cuff Size: Standard 07-24-2016 09:36-0400 Body height 161.54 cm Iliana Edmondson LPN [facility] [employer] 07-24-2016 09:36-0400 Body mass index (BMI) [Ratio] 27.81 kg/m2 Iliana Edmondson LPN [facility] [employer] 07-24-2016 09:36-0400 Body surface area Derived from formula 1.77 m2 Iliana Edmondson LPN [facility] [employer] 07-24-2016 09:36-0400 Body weight 72.58 kg Iliana Edmondson LPN [place] [facility] [employer] 07-24-2016 09:36-0400 Diastolic blood pressure 87 mm[Hg] Iliana Debo SANDERSON [place] [employer] Comment on above: Patient Position: Sitting; Cuff Location : Left Arm; Cuff Size: Standard 07-24-2016 09:36-0400 Heart rate 79 /min Iliana Edmondson LPN [place] [facility] [employer] Comment on above: Pattern: Regular 07-24-2016 09:36-0400 Systolic blood pressure 125 mm[Hg] Iliana Debo SANDERSON [facility] [employer], [employer]. Comment on above: Patient Position: Sitting; Cuff Location : Left Arm; Cuff Size: Standard 07-26-2015 10:53-0400 Body height 162.56 cm Iliana Sadlerdevin SANDERSON [facility] [employer] 07-26-2015 10:53-0400 Body mass index (BMI) [Ratio] 26.78 kg/m2 Iliana Sadlerdevin SANDERSON [facility] [place] [employer] 07-26-2015 10:53-0400 Body surface area Derived from formula 1.76 m2 Iliana Sadlerdevin SANDERSON [facility] [place] [employer], [employer]. 07-26-2015 10:53-0400 Body weight 70.76 kg Iliana Sadlerdevin SANDERSON [facility] [place] [employer], [employer]. 07-26-2015 10:53-0400 Diastolic blood pressure 77 mm[Hg] Iliana Sadlerdevin SANDERSON [facility] [employer], [employer]. Comment on above: Patient Position: Sitting; Cuff Location : Left Arm; Cuff Size: Standard 07-26-2015 10:53-0400 Heart rate 69 /min Iliana Sadlerdevin SANDERSON [facility] [employer] Comment on above: Pattern: Regular 07-26-2015 10:53-0400 Systolic blood pressure 117 mm[Hg] Iliana Sadlerdevin SANDERSON [facility] [place] [employer] Comment on above: Patient Position: Sitting; Cuff Location : Left Arm; Cuff Size: Standard 06-14-2015 10:00-0400 Body height 162.56 cm Iliana Sadlerdevin SANDERSON [facility] [place] [employer] 06-14-2015 10:00-0400 Body mass index (BMI) [Ratio] 26.61 kg/m2 Iliana Sadlerdevin SANDERSON [facility] [place] [employer] 06-14-2015 10:00-0400 Body surface area Derived from formula 1.76 m2 Iliana Sadlerdevin SANDERSON [facility] [employer] [facility] 06-14-2015 10:00-0400 Body weight 70.31 kg Iliana Edmondson KIN [facility].; [place] [facility] 06-14-2015 10:00-0400 Diastolic blood pressure 78 mm[Hg] Iliana Sadlerdevin SANDERSON [facility] [employer] Comment on above: Patient Position: Sitting; Cuff Location : Left Arm; Cuff Size: Standard 06-14-2015 10:00-0400 Heart rate 83 /min Iliana Wedevin [facility] [employer] Comment on above: Pattern: Regular 06-14-2015 10:00-0400 Systolic blood pressure 117 mm[Hg] Iliana Sadlerdevin SANDERSON [facility] [employer] Comment on above: Patient Position: Sitting; Cuff Location : Left Arm; Cuff Size: Standard 03-07-2015 10:130500 Body height 162.56 cm Iliana Wedevin SANDERSON [facility] [employer] 03-07-2015 10:130500 Body mass index (BMI) [Ratio] 26.63 kg/m2 Iliana Sadlerdevin [facility] [employer] 03-07-2015 10:130500 Body surface area Derived from formula 1.76 m2 Iliana Edmondson LPN [facility] [place] [employer] 03-07-2015 10:130500 Body weight 70.36 kg Iliana Weaguilahaider [facility] [employer] 03-07-2015 10:130500 Diastolic blood pressure 70 mm[Hg] Iliana Wedevin [facility] [employer] Comment on above: Patient Position: Sitting; Cuff Location : Left Arm; Cuff Size: Standard 03-07-2015 10:130500 Heart rate 106 /min Iliana Wedevin SANDERSON [facility] [employer] [facility] Hospital[facility]. Comment on above: Pattern: Regular 03-07-2015 10:13-0500 Systolic blood pressure 123 mm[Hg] Iliana Sadleraguilahaider KIN [facility], [facility].; [place] [facility], [employer]. Comment on above: Patient Position: Sitting; Cuff Location : Left Arm; Cuff Size: Standard 08-15-2014 09:21-0400 Body height 162.56 cm Iliana Debo SANDERSON [facility] [place] [employer] 08-15-2014 09:21-0400 Body mass index (BMI) [Ratio] 26.84 kg/m2 Iliana Debo [facility].; [place] [employer], [employer]. 08-15-2014 09:21-0400 Body surface area Derived from formula 1.76 m2 Iliana Edmondson LPN [facility] [place] [facility], [employer]. 08-15-2014 09:21-0400 Body weight 70.93 kg Iliana Debo SANDERSON [facility], [facility].; [employer], [employer]. 08-15-2014 09:21-0400 Diastolic blood pressure 96 mm[Hg] Iliana Debo SANDERSON [facility], [facility].; [employer], [employer]. Comment on above: Patient Position: Sitting; Cuff Location : Left Arm; Cuff Size: Standard 08-15-2014 09:21-0400 Heart rate 93 /min Iliana Edmondson LPN [facility] [employer]. Comment on above: Pattern: Regular 08-15-2014 09:21-0400 Systolic blood pressure 139 mm[Hg] Iliana Wedevin SANDERSON [place] [facility], [employer]. Comment on above: Patient Position: Sitting; Cuff Location : Left Arm; Cuff Size: Standard 06-04-2014 18:05-0400 Body height 162.56 cm Ilianabelle Edmondson LPN [facility] [employer]. 06-04-2014 18:05-0400 Body mass index (BMI) [Ratio] 27.81 kg/m2 Iliana Debo SANDERSON [facility], [facility].; [facility], [facility]. 06-04-2014 18:05-0400 Body surface area Derived from formula 1.79 m2 Iliana Sadlerdevin SANDERSON [facility], [facility].; [place] [facility] 06-04-2014 18:05-0400 Body weight 73.48 kg Iliana Edmondson KIN [facility] [place] [facility], [facility]. 05-31-2014 10:30-0400 Body height 162.56 cm Iliana Garciageovanni SANDERSON [facility], [facility].; [place] [facility], [facility]. 05-31-2014 10:30-0400 Body mass index (BMI) [Ratio] 27.81 kg/m2 Iliana Sadlerdevin [facility], [facility].; [place] [employer] 05-31-2014 10:30-0400 Body surface area Derived from formula 1.79 m2 Iliana Sadlerdevin SANDERSON [facility], [facility].; [place] [facility], [facility]. 05-31-2014 10:30-0400 Body temperature 97.5 [degF] Iliana Garciageovanni [facility], [facility].; [employer], [employer]. Comment on above: Method: Tympanic 05-31-2014 10:30-0400 Body weight 73.48 kg Iliana Garciahersonhaider KIN [facility], [facility].; [facility] [employer] 05-31-2014 10:30-0400 Diastolic blood pressure 85 mm[Hg] Iliana Sadlerdevin SANDERSON [facility], [facility].; [employer]. Comment on above: Patient Position: Sitting; Cuff Location : Left Arm; Cuff Size: Standard 05-31-2014 10:30-0400 Heart rate 73 /min Iliana Sadlerdevin SANDERSON [facility], [facility].; [employer]. Comment on above: Pattern: Regular 05-31-2014 10:30-0400 Systolic blood pressure 123 mm[Hg] Iliana Sadlerdevin SANDERSON [facility] [employer], [employer]. Comment on above: Patient Position: Sitting; Cuff Location : Left Arm; Cuff Size: Standard 04-10-2014 13:47-0500 Body height 162.56 cm Tess Diaz SENIOR CASE MANAGER [facility] [employer] [facility] 04-10-2014 13:47-0500 Body mass index (BMI) [Ratio] 28.15 kg/m2 Tess Diaz LPN [facility] [place] [facility] 04-10-2014 13:47-0500 Body surface area Derived from formula 1.8 m2 Ivania Emily SENIOR CASE MANAGER [facility] [employer] [facility] 04-10-2014 13:47-0500 Body weight 74.39 kg Tess Diaz SENIOR CASE MANAGER [facility] [employer] [facility] 04-10-2014 13:47-0500 Diastolic blood pressure 81 mm[Hg] Tess Diaz [facility] [employer], [employer]. Comment on above: Patient Position: Sitting; Cuff Location : Left Arm; Cuff Size: Large 04-10-2014 13:47-0500 Heart rate 90 /min Tess Diaz SENIOR CASE MANAGER [facility] [employer] Comment on above: Pattern: Regular 04-10-2014 13:47-0500 Systolic blood pressure 132 mm[Hg] Tess Diaz SENIOR CASE MANAGER [facility] [employer] Comment on above: Patient Position: Sitting; Cuff Location : Left Arm; Cuff Size: Large Encounters Encounter Date Encounter Type Care Provider Facility Start: 09-12-2024 Review Sanjuanita Garcia PA-C Work Phone: [facility] Start: 09-11-2024 End: 09-11-2024 Patient encounter procedure Sanjuanita Garcia PA-C Work Phone: [facility], [facility].; [employer] Start: 09-11-2024 Patient encounter procedure Bhavya Mohan [facility], [employer] Start: 08-07-2024 End: 08-07-[address] Ehsan Bains MD [facility] Work Phone: Start: 08-07-2024 End: 08-07-2024 ambulatory Sanjuanita Garcia PA Work Phone: [facility] Work Phone: Start: 07-05-2024 End: 07-05-2024 Office outpatient visit 15 minutes Sanjuanita Garcia PA-C Work Phone: [facility] Start: 04-03-2024 End: 04-03-2024 ambulatory [facility] Facility[facility] Start: 03-31-2024 End: 03-31-2024 ambulatory Bucky Joel ID Facility:[facility] Start: 03-29-2024 ambulatory [facility] Facility: [facility] Start: 03-29-2024 End: 03-29-2024 Subsequent hospital visit by physician [facility] 1 Work Phone: Radiology Comment on above: Hepatic fibrosis, un specified [K74.00] Start: 03-14-2024 End: 03-14-2024 ambulatory [facility] Facility[facility] Start: 02-18-2024 End: 02-18-2024 ambulatory Sanjuanita GARAY Facility:[facility] Start: 01-13-2024 End: 01-13-2024 ambulatory SANJUANITA GARCIA [facility] Start: 12-13-2023 End: 12-13-2023 Patient encounter procedure Génesis Colon LPN [facility] Start: 12-13-2023 End: 12-13-2023 Periodic preventive med est patient 65yrs& older Sanjuanita Garcia PA-C Work Phone: [facility], [employer]. Start: 09-20-2023 End: 09-20-2023 ambulatory Sanjuanita Garcia PA Facility:[facility] Start: 09-13-2023 End: 09-13-2023 ambulatory [facility] Facility[facility] Start: 06-15-2023 End: 06-15-2023 ambulatory PA Sanjuanita GARAY Work Phone: [facility] Work Phone: Start: 06-15-2023 End: 06-15-2023 Patient encounter procedure PA Sanjuanitasherrie Garcia TANISHA Work Phone: [facility]-Cat Scan, [facility] Work Phone: Start: 03-12-2023 End: 03-12-2023 ambulatory PA Sanjuanita GARAY Work Phone: [facility] Work Phone: Start: 03-12-2023 End: 03-12-2023 Patient encounter procedure PA Sanjuanitasherrie Garcia TANISHA Work Phone: [facility] Work Phone: Start: 03-11-2023 End: 03-11-2023 Patient encounter procedure TANISHA RichardsonSanjuanita Jose GARAY Work Phone: [facility] Work Phone: Start: 01-11-2023 End: 01-11-2023 Historical Summary Sanjuanita GARAY-C Work Phone[facility] [facility] Start: 01-08-2023 End: 01-08-2023 Orders Sanjuanita Garcia TANISHA-C Work Phone: [facility] [facility] Start: 01-08-2023 End: 01-08-2023 Patient encounter procedure Génesis Colon LPN [facility] [facility] Start: 01-08-2023 End: 01-08-2023 Patient encounter status [facility]énesis Colon LPN [facility] [facility] [employer]. Start: 12-10-2022 End: 12-10-2022 Orders Sanjuanita GARAY-C Work Phone: [employer]. Start: 03-31-2022 End: 03-31-2022 ambulatory PA Sanjuanita GARAY Work Phone: [facility] Work Phone: Start: 03-31-2022 End: 03-31-2022 Patient encounter procedure PA Sanjuanitasherrie Garcia PA Work Phone: [facility]-Laboratory, [place] Start: 02-12-2022 End: 02-12-2022 Patient encounter procedure PA Sanjuanita Garcia PA Work Phone: [facility] Start: 01-02-2022 End: 01-02-2022 ambulatory PA Sanjuanita Garcia PA Work Phone: [facility] Work Phone: Start: 01-02-2022 End: 01-02-2022 Patient encounter procedure PA Sanjuanitasherrie Garcia PA Work Phone: [facility], [facility] Start: 12-16-2021 End: 12-16-2021 ambulatory PA Sanjuanitasherrie Garcia TANISHA Work Phone: [facility] Work Phone: Start: 12-16-2021 End: 12-16-2021 Patient encounter procedure PA [facility] Start: 12-16-2021 End: 12-16-2021 Patient encounter procedure PA Sanjuanitasherrie Garcia TANISHA Work Phone: [facility] Start: 12-04-2021 End: 12-04-2021 Orders Sanjuanita Garcia PA-C Work Phone: [employer] Start: 11-28-2021 End: 11-28-2021 Orders Sanjuanita Silvaer PA-C Work Phone: [employer]. Start: 05-29-2021 End: 05-28-2021 Historical Summary Sanjuanita Silvaer PA-C Work Phone: [employer]. Start: 05-29-2021 End: 05-29-2021 Patient encounter procedure Sanjuanita Garcia PA-C Work Phone: [employer]. Start: 05-20-2021 End: 05-21-2021 Orders Sanjuanita Garcia PA-C Work Phone: [employer] Start: 05-09-2021 End: 05-09-2021 Orders Sanjuanita Garcia PA-C Work Phone: [employer]. Start: 01-29-2020 End: 01-29-2020 Patient encounter procedure Snajuanita Garcia PA-C Work Phone: [employer] Start: 01-26-2020 End: 01-26-2020 Medication Sanjuanita Garcia PA-C Work Phone: [employer]. Start: 01-25-2020 End: 01-25-2020 Medication Sanjuanita Garcia PA-C Work Phone: [employer]. Start: 01-18-2020 End: 01-18-2020 Orders Sanjuanita Garcia PA-C Work Phone: [employer] Start: 01-15-2020 End: 01-15-2020 Patient encounter procedure Sanjuanita Garcia PA-C Work Phone: [employer] Start: 12-08-2019 End: 12-08-2019 Subsequent hospital visit by physician Provider [facility] Start: 09-15-2019 End: 09-15-2019 Subsequent hospital visit by physician Provider [facility] Start: 05-08-2019 End: 05-08-2019 Orders Sanjuanita Garcia PA-C Work Phone: [employer]. Start: 05-04-2019 End: 05-04-2019 Orders Sanjuanita Garcia PA-C Work Phone: [employer] Start: 04-28-2019 End: 04-28-2019 Patient encounter procedure Sanjuanita Garcia PA-C Work Phone: [employer] Start: 05-23-2018 End: 05-23-2018 Orders Sanjuanita Garcia PA-C Work Phone: [employer] Start: 02-25-2018 End: 02-25-2018 Patient encounter procedure Sanjuanita Garcia PA-C Work Phone: [employer] Start: 02-25-2018 End: 02-25-2018 Periodic preventive med est patient 40-64yrs Sanjuanita Garcia PA-C Work Phone: [employer]. Start: 02-24-2018 End: 02-24-2018 Historical Summary Sanjuanita Silvaer PA-C Work Phone: [employer]. Start: 05-01-2017 End: 05-03-2017 Office outpatient visit 15 minutes Sanjuanita Garcia PA-C Work Phone: [employer]. Start: 08-24-2016 End: 08-24-2016 Office outpatient visit 15 minutes Sanjuanita Garcia PA-C Work Phone: [employer]. Start: 07-24-2016 End: 07-30-2016 Patient encounter procedure Sanjuanita Garcia PA-C Work Phone: [employer] Start: 07-24-2016 End: 07-30-2016 Periodic preventive med est patient 40-64yrs Sanjuanita Garcia PA-C Work Phone: [employer]. Start: 07-26-2015 End: 07-26-2015 Patient encounter procedure Sanjuanita Garcia PA-C Work Phone: [employer]. Start: 06-14-2015 End: 06-17-2015 Patient encounter procedure Sanjuanita Garcia PA-C Work Phone: [employer] Start: 03-07-2015 End: 03-07-2015 Patient encounter procedure Sanjuanita Garcia PA-C Work Phone: [employer]. Start: 02-22-2015 End: 02-22-2015 Orders Sanjuanita Garcia PA-C Work Phone: [employer]. Start: 02-13-2015 End: 02-13-2015 Orders Sanjuanita Garcia PA-C Work Phone: [employer] Start: 02-12-2015 End: 02-13-2015 Orders Sanjuanita Garcia PA-C Work Phone: [employer] Start: 08-15-2014 End: 08-15-2014 Patient encounter procedure Sanjuanita MARROQUINC Work Phone: [employer]. Start: 06-07-2014 End: 06-07-2014 Historical Summary Sanjuanita Garcia PA-C Work Phone: [employer]. Start: 06-04-2014 End: 06-04-2014 Orders Sanjuanita MARROQUINC Work Phone: [employer]. Start: 05-31-2014 End: 05-31-2014 Patient encounter procedure Sanjuanita MARROQUINC Work Phone: [employer] Start: 04-10-2014 End: 04-10-2014 Office outpatient visit 15 minutes Sanjuanita Garcia PA-C Work Phone: [employer] Patient encounter procedure Sanjuanita Garcia PA-C Work Phone: [employer] [facility] [employer] [facility] Patient encounter procedure Génesis Colon SENIOR CASE MANAGER [facility] [employer] [facility].; [employer] [facility] [employer] [facility] Patient encounter procedure Sanjuanita GARAY-C Work Phone: [employer] [facility] Procedures Date Procedure Procedure Detail Performing Clinician Start: 09-11-2024 End: 09-11-2024 Adv care pln tlkd & alt dcsn maker docd Sanjuanita Garcia PA-C Work Phone: Start: 09-11-2024 End: 09-11-2024 Depression screening Sanjuanita GARAY -C Work Phone: Start: 09-11-2024 End: 09-11-2024 Falls risk assessment documented Sanjuanita GARAY-C Work Phone: Start: 09-11-2024 End: 09-11-2024 PPPS, subseq visit Sanjuanita Garcia PA- C Work Phone: Start: 09-11-2024 End: 09-11-2024 Pt falls assess docd w/o fall/injury past year Sanjuanita Silvaer PA-C Work Phone: Start: 09-11-2024 End: 09-11-2024 Scr dep neg, no plan reqd Sanjuanita Silva er PA-C Work Phone: Start: 03-29-2024 Dup-scan artl irma abdl/pel/scrot&/rpr orgn com [facility] Start: 03-29-2024 ABD LIVER VASCULAR [facility] Start: 12-13-2023 End: 12-13-2023 Adv care pln/ no alt dcsn mkr docd or refusal Sanjuanita Silvaer PA-C Work Phone: Start: 12-13-2023 End: 12-13-2023 Depression screening Sanjuanita Silvaer PA -C Work Phone: Start: 12-13-2023 End: 12-13-2023 Falls risk assessment documented Sanjuanita Garcia PA-C Work Phone: Start: 12-13-2023 End: 12-13-2023 PPPS, subseq visit Sanjuanita Silvaer PA- C Work Phone: Start: 12-13-2023 End: 12-13-2023 Pt falls assess docd w/o fall/injury past year Sanjuanita Silvaer PA-C Work Phone: Start: 12-13-2023 End: 12-13-2023 Scr dep neg, no plan reqd Sanjuanita Silva er PA-C Work Phone: Start: 12-13-2023 End: 01-17-2024 Screening digital breast tomosynthesis bi Sanjuanita Silvaer PA-C Work Phone: Start: 06-15-2023 Computed tomography of abdomen and pelvis with contrast PA Sanjuanita Silvaer PA Work Phone: Start: 01-08-2023 End: 01-08-2023 Adv care pln/ no alt dcsn mkr docd or refusal Sanjuanita Garcia PA-C Work Phone: Start: 01-08-2023 End: 01-08-2023 Depression screening Sanjuanita Garcia PA -C Work Phone: Start: 01-08-2023 End: 01-08-2023 Falls risk assessment documented Sanjuanita Garcia PA-C Work Phone: Start: 01-08-2023 End: 01-08-2023 Initial preventive exam Sanjuanita Garcia PA-C Work Phone: Start: 01-08-2023 End: 01-08-2023 Pt falls assess docd w/o fall/injury past year Sanjuanita Garcia PA-C Work Phone: Start: 01-08-2023 End: 01-08-2023 Scr dep neg, no plan reqd Sanjuanita Silva er PA-C Work Phone: Start: 01-08-2023 End: 01-08-2023 Screening test visual acuity quantitative bilat Sanjuanita Silvaer PA-C Work Phone: Start: 12-10-2022 End: 12-28-2022 Screening digital breast tomosynthesis bi Sanjuanita Silvaer PA-C Work Phone: Start: 01-02-2022 Ultrasonography of abdomen PA Sanjuanita Garcia PA Work Phone: Start: 01-02-2022 Ultrasound elastography PA Sanjuanita Garcia PA Work Phone: Start: 05-29-2021 End: 05-29-2021 Depression screening Sanjuanita Silvaer PA -C Work Phone: Start: 05-29-2021 End: 05-29-2021 Scr dep neg, no plan reqd Sanjuanita Silva er PA-C Work Phone: Start: 05-20-2021 End: 05-20-2021 Lab findings surveillance Génesis Albert nuñez SENIOR CASE MANAGER Comment on above: 93 CMP Start: 05-20-2021 End: 05-20-2021 Lipid panel Génesis Albert Colon LP N Comment on above: Normal. TC 118, HDL 50, LDL 51, Trig 85 Start: 05-09-2021 End: 05-29-2021 Screening mammography bi 2-view breast inc cad Sanjuanita Shannon Garcia PA-C Work Phone: Start: 01-29-2020 End: 01-29-2020 Depression screening Sanjuanita Shannon Garcia PA -C Work Phone: Start: 01-29-2020 End: 01-29-2020 Scr dep neg, no plan reqd Sanjuanita Shannon Palm er PA-C Work Phone: Start: 01-29-2020 End: 03-07-2020 Screening mammography bi 2-view breast inc cad Sanjuanita Shannon Garcia PA-C Work Phone: Start: 12-08-2019 Comprehensive metabo lic 2000 panel Jordan Toussaint Work Phone: Start: 12-08-2019 FERRITIN BLD Jordan Toussaint Work Phone: Start: 12-08-2019 IRON + TIBC Jordan Toussaint Work Phone: Start: 09-15-2019 Comprehensive metabo lic 2000 panel Bob García Work Phone: Start: 09-15-2019 FERRITIN BLD Bob García Work Phone: Start: 09-15-2019 IRON + TIBC Bob García Work Phone: Start: 04-28-2019 End: 05-04-2019 Us abdominal real time w/image limited Sanjuanita Shannon Garcia PA-C Work Phone: Start: 04-11-2019 End: 04-11-2019 Comprehensive metabolic 2000 panel - Serum or Plasma Génesis Colon SENIOR CASE MANAGER Start: 08-15-2018 End: 08-15-2018 Screening colonoscopy Génesis Colon SENIOR CASE MANAGER Comment on above: Normal. hmorrhoids-n ext due 2028 Start: 03-18-2018 End: 03-18-2018 Screening mammography Génesis Albert Colon LPN Comment on above: Normal. Start: 03-08-2018 End: 03-08-2018 Colonoscopy Génesis Foy Comment on above: Dr. Christina Thomas, normal , repeat 10 years. Start: 02-25-2018 End: 03-18-2018 Screening mammography bi 2-view breast inc cad Sanjuanita Silvaer PA-C Work Phone: Start: 02-25-2018 End: 03-16-2018 Dxa bone density study 1/> sites axial skel Sanjuanita Shannon Garcia PA-C Work Phone: Start: 07-24-2016 End: 08-05-2016 Screening mammography bi 2-view breast inc cad Sanjuanita Shannon Garcia PA-C Work Phone: Start: 04-05-2015 End: 04-05-2015 Thyrotropin [Units/volume] in Serum or Plasma Génesis Colon LPN Comment on above: 1.64 Start: 02-12-2015 End: 02-18-2015 Mammogram, screening Sanjuanita Silvaer PA -C Work Phone: Start: 05-31-2014 End: 06-05-2014 Ct pelvis w/contrast material Sanjuanita Garcia PA-C Work Phone: Comment on above: Rule out diverticuli tis or underlying pathology Start: 09-05-2010 End: 09-05-2010 Microscopic examination of cervical Papanicolaou smear Génesis Colon LPN Start: 06-06-2008 End: 06-06-2008 Liver biopsy Génesis Albert Foy Comment on above: Told she had a fatty liver Start: 06-06-2008 End: 06-06-2008 Screening for malignant neoplasm of large intestine Génesis Colon LPN Comment on above: Next due in 2018 Start: 03-08-2005 End: 03-08-2005 bartalin gland cyst Génesis Colon LP N anestheia complicati on-2005- aspirated Génesis Colon LPN anestheia complicati on-2005- aspirated Génesis Colon LPN anestheia complicati on-2005- aspirated Bhavya N Kimberlee Colonoscopy Génesis Price Idanialaury SENIOR CASE MANAGER Comment on above: 2008 Total hysterectomy Génesis Alegre sasha SOSAN Comment on above: 06/29/2014 Total hysterectomy Génesis Alegre sasha SOSAN Comment on above: 06/29/2014 Total hysterectomy Bhavya Danii Mohan Comment on above: 06/29/2014 Plan of Treatment Date Care Activity Detail Author Start: 2033 RSV Vaccine (1 - 1-dose 75+ series) RSV Vaccine (1 - 1-dose 75+ series) [facility] Start: 09-13-2025 Patient encounter procedure Medical; PHYSICAL - awv [employer] Start: 13-Sep-2025 09:00-04:00 MARIE Garcia Appointment Request [employer]. Start: 03-07-2025 Urine microalbumin profile DTaP,Tdap,Td Vaccine (2 - Td or Tdap) [facility] Start: 09-11-2024 Screening digital breast tomosynthesis bi Mammogram 3D (tomosynthesis), bilateral ([id number]) Start: 11-Sep-2024 Intent [employer] Start: 09-11-2024 Patient encounter procedure Medical; PHYSICAL - AWV [employer]. Start: 11-Sep-2024 09:10-04:00 MARIE Garcia Appointment Request [employer] Start: 03-08-2024 Advance Directive Discussion Advance Directive Discussion [facility] Start: 12-13-2023 Screening digital breast tomosynthesis bi Mammogram 3D (tomosynthesis), bilateral ([id number]) Start: 13-Dec-2023 Intent [employer] Start: 12-13-2023 Patient encounter procedure Medical; PHYSICAL - Medicare wellness [employer] Start: 13-Dec-2023 08:20-04:00 MARIE Garcia Appointment Request [employer]. Start: 12-06-2023 Nursing evaluation of patient and report Medical; Nurse visit - Medicare wellness fasting labs MJP [employer]. Start: 06-Dec-2023 08:20-04:00 NURSE, FLOAT Appointment Request [employer]. Start: 11-07-2023 Covid-19 Vaccine ( season) Covid-19 Vaccine ( season) [facility] Start: 11-07-2023 Influenza vaccination Influenza Vaccine (#1) [facility] Start: 03-12-2023 Hepatitis B core antibody measurement, IgM type [facility] Start: 03-12-2023 In-vitro immunologic test [facility] Start: 01-08-2023 Provider Instructions for Treatment [facility] HM Issues, 50-64 female Indication: Welcome to Medicare preventive visit Start: 08-Jan-2023 Instruction Type: Provider Instructions for Treatment [employer] Start: 01-08-2023 Lipid panel LIPID PANEL (06530) Start: 08-Jan-2023 8:50 Request [employer] Start: 01-08-2023 Comprehensive metabolic panel CMP w/ GFR* ([id number]) Start: 08-Jan-2023 8:50 Request [employer] Start: 01-08-2023 Assay of ferritin FERRITIN ([id number]) Start: 08-Jan-2023 8:50 Request [employer] Start: 01-08-2023 Blood count complete auto&auto difrntl wbc CBC, PLATELETS & AUT DIFF (F) ([id number]) Start: 08-Jan-2023 8:50 Request [employer] Start: 2023 Screening for osteoporosis Bone Density Screening [facility] Start: 12-07-2022 Diabetes Screening Diabetes Screening [facility] Start: 05-29-2021 Provider Instructions for Treatment [facility] HM Issues, 50-64 female Indication: Annual physical exam Start: 29-May-2021 Instruction Type: Provider Instructions for Treatment [employer] Start: 01-29-2020 Lipid panel LIPID PANEL ([id number]) Start: 29-Jan-2020 9:36 Request [employer].; [employer] Start: 01-29-2020 Assay of ferritin FERRITIN ([id number]) Start: 29-Jan-2020 9:36 Request [employer] Start: 01-29-2020 Comprehensive metabolic panel CMP w/ GFR* ([id number]) Start: 29-Jan-2020 9:36 Request [employer].; [employer] Start: 01-29-2020 Blood count complete auto&auto difrntl wbc CBC, PLATELETS & AUT DIFF (F) ([id number]) Start: 29-Jan-2020 9:36 Request [employer].; [employer] Start: 02-25-2018 Provider Instructions for Treatment [facility] HM Issues, 50-64 female Indication: Annual physical exam Start: 25-Feb-2018 Instruction Type: Provider Instructions for Treatment [employer] Start: 11-03-2013 Screening for malignant neoplasm of breast Mammogram Screening [facility] Start: 01-07-2008 Pneumococcal Vaccine: 50+ (1 of 1 - PCV) Pneumococcal Vaccine: 50+ (1 of 1 - PCV) [facility] Start: 01-07-2008 Shingrix Vaccine (1 of 2) Shingrix Vaccine (1 of 2) [facility] Start: 2003 Lipid panel Lipid Screening [facility] Start: 2003 Screening for malignant neoplasm of colon [facility] Start: 01-07-1976 Anxiety Screening Anxiety Screening [facility] Start: 01-07-1976 Depression Screening Depression Screening [facility] Start: 01-07-1976 Hepatitis C screening Hepatitis C Screening [facility] CT Abdomen and Pelvi s WO and W contrast IV [facility] Mycobacterium tuberculosis tuberculin stimulated gamma interferon [Presence] in Blood [facility] Ultrasound elastography [facility] Work Phone: Ultrasound elastography [facility] US Abdomen limited [place] [facility] Work Phone: [place] Abdomen limited [facility] Immunizations Immunization Date Immunization Notes Care Provider Vi berrios 03-07-2015 tetanus toxoid, redu sheeba diphtheria toxoid, and acellular pertussis vaccine, adsorbed Sanjuanita Garcia PA-C Work Phone: [employer]. Comment on above: Site: Deltoid (Left) VIS Given: * Tdap (Tetanus, Diphtheria, Pertussis) (05/01/14) 02-06-2012 influenza, seasonal, injectable Sanjuanita Garcia PA-C Work Phone: [employer]; [employer] 02-06-2012 influenza virus vaccine, unspecified formulation Us 1 Work Phone: [facility] 06-06-2008 hepatitis A vaccine, adult dosage Sanjuanita Garcia PA-C Work Phone: [employer]; [employer]. Comment on above: VIS Given: * Hepatit is A Vaccine (12/30/10) 06-06-2008 hepatitis B vaccine, adult dosage Sanjuanita Garcia PA-C Work Phone: [employer]; [employer]. Payers Date Payer Category Payer Unknown 2023 Self-pay [id number] 2023 Unknown [id number] 1960 Unknown [id number] 2.16.8 [id number] Unknown [id number] Unknown [facility] [employer] . [id number] Unknown [facility] [employer] [id number] Unknown [id number] 2.16.8 [id number] Unknown [id number] 2.16.8 [id number] Unknown [id number] 2.16.8 [id number] Unknown [id number] 2.16.8 [id number] Unknown [id number] 2.16.8 [id number] Unknown [id number] 2.16.8 [id number] Unknown [id number] 2.16.8 [id number] Social History Date Type Detail Facility [facility] Start: 1960 Sex Assigned At Not on file [facility] Start: 12-16-2021 End: 03-11-2023 Tobacco smoking status NHIS Unknown if ever smoked [facility] Start: 1960 Sex Assigned At Female W [facility] Current Work/Study Status: Current Work/Study Status: ; [facility]-time[facility] [employer]. Start: 02-14-2020 [facility] [employer] Tobacco Use: Tobacco Use: ; N ever smoker. [employer] Part-time [employer] Work Phone: Start: 03-11-2023 Never smoked tobacco [facility] Start: 02-14-2020 Area Deprivation Index [facility] National Score (1-10 0), lower number is lower risk Not on file [facility] History of Present illness Narrative 03-29-2024 Kailyn Hutton RDMS - 03/29/2024 10:30 AM EST Note Date & Type Note Facility 03-29-2024 History of Presen t illness Narrative Radiology Service Progress Note PATIENT NAME: Veronica Mayen DATE OF SERVICE: March 29, 2024 TIME: 10:14 AM PATIENT IDENTITY VERIFICATION COMPLETED USING TWO (2) IDENTIFIERS: Name and Date of confirmed by patient verbally and Name and Date of confirmed by identification band. FALL SCREENING: Has the patient had 2 falls in the last year or 1 fall with injury or currently using an Ambulatory Assistive Device (Walker, Cane, Wheelchair, Crutches, etc.)? No PATIENT GENDER DATA: Assigned female at . status: : No status: N/A PATIENT RELEVANT IMPLANT DATA REVIEWED: Not Applicable PATIENT PRESENTS WITH AN IMPLANTABLE OR ATTACHED LOOM CONTROL CHAIN BUILDER: N/A RADIOLOGY DEPARTMENT: Ultrasound PERIPHERAL IV DATA: Not applicable SIGNED BY: Kailyn Hutton RDMS March 29, 2024 10:14 AM documented in this encounter [facility] Progress note 03-29-2024 Note Date & Type Note Facility 03-29-2024 Note HNO ID: [id number] Author: KAILYN HUTTON RDMS Service: ? Author Type: Technologist Type: Progress Notes Filed: 03/29/2024 10:14 Note Text: Radiology Service Progress Note PATIENT NAME: Veronica Mayen DATE OF SERVICE: March 29, 2024 TIME: 10:14 AM PATIENT IDENTITY VERIFICATION COMPLETED USING TWO (2) IDENTIFIERS: Name and Date of confirmed by patient verbally and Name and Date of confirmed by identification band. FALL SCREENING: Has the patient had 2 falls in the last year or 1 fall with injury or currently using an Ambulatory Assistive Device (Walker, Cane, Wheelchair, Crutches, etc.)? No PATIENT GENDER DATA: Assigned female at . status: : No status: N/A PATIENT RELEVANT IMPLANT DATA REVIEWED: Not Applicable PATIENT PRESENTS WITH AN IMPLANTABLE OR ATTACHED LOOM CONTROL CHAIN BUILDER: N/A RADIOLOGY DEPARTMENT: Ultrasound PERIPHERAL IV DATA: Not applicable SIGNED BY: Kailyn Hutton RDMS March 29, 2024 10:14 AM [facility] Evaluation note Note Date & Type Note Facility Evaluation note Diagnosis Onset Date Fatigue acute NAFLD (nonalcoholic fatty liver disease) acute Polycythemia acute [facility] Work Phone: Evaluation note Note Date & Type Note Facility Evaluation note Diagnosis Onset Date Fatigue acute NAFLD (nonalcoholic fatty liver disease) acute Polycythemia acute NAFLD (nonalcoholic fatty liver disease) acute [facility] Work Phone: Evaluation note Note Date & Type Note Facility Evaluation note Diagnosis Onset Date Fatigue chronic NAFLD (nonalcoholic fatty liver disease) chronic Polycythemia chronic [facility] Work Phone: Evaluation note Note Date & Type Note Facility Evaluation note Diagnosis Onset Date Resolution Liver fibrosis acute August 07, 2024 8:40am Metabolic dysfunction-associated steatotic liver disease (MASLD) acute August 07, 2024 8 :40am Polycythemia chronic August 07 8:40am [facility] Work Phone: Reason for referral (narrative) Note Date & Type Note Facility Reason for referral (narrative) No reason for referral information available [facility] Work Phone: Summary Purpose Family History Relationship Condition Age at Onset Recorded Date/T aden mother Hypertension Unknown Arthritis Unknown Coronary artery disease Unknown father Hepatitis Unknown arthritis Status:Active Comments:Mother. Breast Cancer Status:Active Comments:materna l cousin X 3 Cerebrovascular Accident Status:Active Comment s:Paternal Grandfather. Coronary Artery Disease Status:Active Comments :Maternal Grandmother. Paternal Grandmother. Mother. Hypertension Status:Active Comments:Mother. Osteoarthritis Status:Active Comments:Paterna l Grandfather. arthritis Status:Active Comments:Mother. Breast Cancer Status:Active Comments:materna l cousin X 3 Cerebrovascular Accident Status:Active Comment s:Paternal Grandfather. Coronary Artery Disease Status:Active Comments :Maternal Grandmother. Paternal Grandmother. Mother. Hypertension Status:Active Comments:Mother. Osteoarthritis Status:Active Comments:Paterna l Grandfather. arthritis Status:Active Comments:Mother. Breast Cancer Status:Active Comments:materna l cousin X 3 Cerebrovascular Accident Status:Active Comment s:Paternal Grandfather. Coronary Artery Disease Status:Active Comments :Maternal Grandmother. Paternal Grandmother. Mother. Hypertension Status:Active Comments:Mother. Osteoarthritis Status:Active Comments:Paterna l Grandfather. arthritis Status:Active Comments:Mother. Breast Cancer Status:Active Comments:materna l cousin X 3 Cerebrovascular Accident Status:Active Comment s:Paternal Grandfather. Coronary Artery Disease Status:Active Comments :Maternal Grandmother. Paternal Grandmother. Mother. Hypertension Status:Active Comments:Mother. Osteoarthritis Status:Active Comments:Paterna l Grandfather. arthritis Status:Active Comments:Mother. Breast Cancer Status:Active Comments:materna l cousin X 3 Cerebrovascular Accident Status:Active Comment s:Paternal Grandfather. Coronary Artery Disease Status:Active Comments :Maternal Grandmother. Paternal Grandmother. Mother. Hypertension Status:Active Comments:Mother. Osteoarthritis Status:Active Comments:Paterna l Grandfather. arthritis Status:Active Comments:Mother. Breast Cancer Status:Active Comments:materna l cousin X 3 Cerebrovascular Accident Status:Active Comment s:Paternal Grandfather. Coronary Artery Disease Status:Active Comments :Maternal Grandmother. Paternal Grandmother. Mother. Hypertension Status:Active Comments:Mother. Osteoarthritis Status:Active Comments:Paterna l Grandfather. arthritis Status:Active Comments:Mother. Breast Cancer Status:Active Comments:materna l cousin X 3 Cerebrovascular Accident Status:Active Comment s:Paternal Grandfather. Coronary Artery Disease Status:Active Comments :Maternal Grandmother. Paternal Grandmother. Mother. Hypertension Status:Active Comments:Mother. Osteoarthritis Status:Active Comments:Paterna l Grandfather. arthritis Status:Active Comments:Mother. Breast Cancer Status:Active Comments:materna l cousin X 3 Cerebrovascular Accident Status:Active Comment s:Paternal Grandfather. Coronary Artery Disease Status:Active Comments :Maternal Grandmother. Paternal Grandmother. Mother. Hypertension Status:Active Comments:Mother. Osteoarthritis Status:Active Comments:Paterna l Grandfather. arthritis Status:Active Comments:Mother. Breast Cancer Status:Active Comments:materna l cousin X 3 Cerebrovascular Accident Status:Active Comment s:Paternal Grandfather. Coronary Artery Disease Status:Active Comments :Maternal Grandmother. Paternal Grandmother. Mother. Hypertension Status:Active Comments:Mother. Osteoarthritis Status:Active Comments:Paterna l Grandfather. arthritis Status:Active Comments:Mother. Breast Cancer Status:Active Comments:materna l cousin X 3 Cerebrovascular Accident Status:Active Comment s:Paternal Grandfather. Coronary Artery Disease Status:Active Comments :Maternal Grandmother. Paternal Grandmother. Mother. Hypertension Status:Active Comments:Mother. Osteoarthritis Status:Active Comments:Paterna l Grandfather. arthritis Status:Active Comments:Mother. Breast Cancer Status:Active Comments:materna l cousin X 3 Cerebrovascular Accident Status:Active Comment s:Paternal Grandfather. Coronary Artery Disease Status:Active Comments :Maternal Grandmother. Paternal Grandmother. Mother. Hypertension Status:Active Comments:Mother. Osteoarthritis Status:Active Comments:Paterna l Grandfather. arthritis Status:Active Comments:Mother. Breast Cancer Status:Active Comments:materna l cousin X 3 Cerebrovascular Accident Status:Active Comment s:Paternal Grandfather. Coronary Artery Disease Status:Active Comments :Maternal Grandmother. Paternal Grandmother. Mother. Hypertension Status:Active Comments:Mother. Osteoarthritis Status:Active Comments:Paterna l Grandfather. arthritis Status:Active Comments:Mother. Breast Cancer Status:Active Comments:materna l cousin X 3 Cerebrovascular Accident Status:Active Comment s:Paternal Grandfather. Coronary Artery Disease Status:Active Comments :Maternal Grandmother. Paternal Grandmother. Mother. Hypertension Status:Active Comments:Mother. Osteoarthritis Status:Active Comments:Paterna l Grandfather. arthritis Status:Active Comments:Mother. Breast Cancer Status:Active Comments:materna l cousin X 3 Cerebrovascular Accident Status:Active Comment s:Paternal Grandfather. Coronary Artery Disease Status:Active Comments :Maternal Grandmother. Paternal Grandmother. Mother. Hypertension Status:Active Comments:Mother. Osteoarthritis Status:Active Comments:Paterna l Grandfather. arthritis Status:Active Comments:Mother. Breast Cancer Status:Active Comments:materna l cousin X 3 Cerebrovascular Accident Status:Active Comment s:Paternal Grandfather. Coronary Artery Disease Status:Active Comments :Maternal Grandmother. Paternal Grandmother. Mother. Hypertension Status:Active Comments:Mother. Osteoarthritis Status:Active Comments:Paterna l Grandfather. arthritis Status:Active Comments:Mother. Breast Cancer Status:Active Comments:materna l cousin X 3 Cerebrovascular Accident Status:Active Comment s:Paternal Grandfather. Coronary Artery Disease Status:Active Comments :Maternal Grandmother. Paternal Grandmother. Mother. Hypertension Status:Active Comments:Mother. Osteoarthritis Status:Active Comments:Paterna l Grandfather. arthritis Status:Active Comments:Mother. Breast Cancer Status:Active Comments:materna l cousin X 3 Cerebrovascular Accident Status:Active Comment s:Paternal Grandfather. Coronary Artery Disease Status:Active Comments :Maternal Grandmother. Paternal Grandmother. Mother. Hypertension Status:Active Comments:Mother. Osteoarthritis Status:Active Comments:Paterna l Grandfather. arthritis Status:Active Comments:Mother. Breast Cancer Status:Active Comments:materna l cousin X 3 Cerebrovascular Accident Status:Active Comment s:Paternal Grandfather. Coronary Artery Disease Status:Active Comments :Maternal Grandmother. Paternal Grandmother. Mother. Hypertension Status:Active Comments:Mother. Osteoarthritis Status:Active Comments:Paterna l Grandfather. arthritis Status:Active Comments:Mother. Breast Cancer Status:Active Comments:materna l cousin X 3 Cerebrovascular Accident Status:Active Comment s:Paternal Grandfather. Coronary Artery Disease Status:Active Comments :Maternal Grandmother. Paternal Grandmother. Mother. Hypertension Status:Active Comments:Mother. Osteoarthritis Status:Active Comments:Paterna l Grandfather. arthritis Status:Active Comments:Mother. Breast Cancer Status:Active Comments:materna l cousin X 3 Cerebrovascular Accident Status:Active Comment s:Paternal Grandfather. Coronary Artery Disease Status:Active Comments :Maternal Grandmother. Paternal Grandmother. Mother. Hypertension Status:Active Comments:Mother. Osteoarthritis Status:Active Comments:Paterna l Grandfather. arthritis Status:Active Comments:Mother. Breast Cancer Status:Active Comments:materna l cousin X 3 Cerebrovascular Accident Status:Active Comment s:Paternal Grandfather. Coronary Artery Disease Status:Active Comments :Maternal Grandmother. Paternal Grandmother. Mother. Hypertension Status:Active Comments:Mother. Osteoarthritis Status:Active Comments:Paterna l Grandfather. arthritis Status:Active Comments:Mother. Breast Cancer Status:Active Comments:materna l cousin X 3 Cerebrovascular Accident Status:Active Comment s:Paternal Grandfather. Coronary Artery Disease Status:Active Comments :Maternal Grandmother. Paternal Grandmother. Mother. Hypertension Status:Active Comments:Mother. Osteoarthritis Status:Active Comments:Paterna l Grandfather. arthritis Status:Active Comments:Mother. Breast Cancer Status:Active Comments:materna l cousin X 3 Cerebrovascular Accident Status:Active Comment s:Paternal Grandfather. Coronary Artery Disease Status:Active Comments :Maternal Grandmother. Paternal Grandmother. Mother. Hypertension Status:Active Comments:Mother. Osteoarthritis Status:Active Comments:Paterna l Grandfather. arthritis Status:Active Comments:Mother. Breast Cancer Status:Active Comments:materna l cousin X 3 Cerebrovascular Accident Status:Active Comment s:Paternal Grandfather. Coronary Artery Disease Status:Active Comments :Maternal Grandmother. Paternal Grandmother. Mother. Hypertension Status:Active Comments:Mother. Osteoarthritis Status:Active Comments:Paterna l Grandfather. arthritis Status:Active Comments:Mother. Breast Cancer Status:Active Comments:materna l cousin X 3 Cerebrovascular Accident Status:Active Comment s:Paternal Grandfather. Coronary Artery Disease Status:Active Comments :Maternal Grandmother. Paternal Grandmother. Mother. Hypertension Status:Active Comments:Mother. Osteoarthritis Status:Active Comments:Paterna l Grandfather. arthritis Status:Active Comments:Mother. Breast Cancer Status:Active Comments:materna l cousin X 3 Cerebrovascular Accident Status:Active Comment s:Paternal Grandfather. Coronary Artery Disease Status:Active Comments :Maternal Grandmother. Paternal Grandmother. Mother. Hypertension Status:Active Comments:Mother. Osteoarthritis Status:Active Comments:Paterna l Grandfather. arthritis Status:Active Comments:Mother. Breast Cancer Status:Active Comments:materna l cousin X 3 Cerebrovascular Accident Status:Active Comment s:Paternal Grandfather. Coronary Artery Disease Status:Active Comments :Maternal Grandmother. Paternal Grandmother. Mother. Hypertension Status:Active Comments:Mother. Osteoarthritis Status:Active Comments:Paterna l Grandfather. arthritis Status:Active Comments:Mother. Breast Cancer Status:Active Comments:materna l cousin X 3 Cerebrovascular Accident Status:Active Comment s:Paternal Grandfather. Coronary Artery Disease Status:Active Comments :Maternal Grandmother. Paternal Grandmother. Mother. Hypertension Status:Active Comments:Mother. Osteoarthritis Status:Active Comments:Paterna l Grandfather. arthritis Status:Active Comments:Mother. Breast Cancer Status:Active Comments:materna l cousin X 3 Cerebrovascular Accident Status:Active Comment s:Paternal Grandfather. Coronary Artery Disease Status:Active Comments :Maternal Grandmother. Paternal Grandmother. Mother. Hypertension Status:Active Comments:Mother. Osteoarthritis Status:Active Comments:Paterna l Grandfather. arthritis Status:Active Comments:Mother. Breast Cancer Status:Active Comments:materna l cousin X 3 Cerebrovascular Accident Status:Active Comment s:Paternal Grandfather. Coronary Artery Disease Status:Active Comments :Maternal Grandmother. Paternal Grandmother. Mother. Hypertension Status:Active Comments:Mother. Osteoarthritis Status:Active Comments:Paterna l Grandfather. arthritis Status:Active Comments:Mother. Breast Cancer Status:Active Comments:materna l cousin X 3 Cerebrovascular Accident Status:Active Comment s:Paternal Grandfather. Coronary Artery Disease Status:Active Comments :Maternal Grandmother. Paternal Grandmother. Mother. Hypertension Status:Active Comments:Mother. Osteoarthritis Status:Active Comments:Paterna l Grandfather. arthritis Status:Active Comments:Mother. Breast Cancer Status:Active Comments:materna l cousin X 3 Cerebrovascular Accident Status:Active Comment s:Paternal Grandfather. Coronary Artery Disease Status:Active Comments :Maternal Grandmother. Paternal Grandmother. Mother. Hypertension Status:Active Comments:Mother. Osteoarthritis Status:Active Comments:Paterna l Grandfather. arthritis Status:Active Comments:Mother. Breast Cancer Status:Active Comments:materna l cousin X 3 Cerebrovascular Accident Status:Active Comment s:Paternal Grandfather. Coronary Artery Disease Status:Active Comments :Maternal Grandmother. Paternal Grandmother. Mother. Hypertension Status:Active Comments:Mother. Osteoarthritis Status:Active Comments:Paterna l Grandfather. Advance Directives No Advanced Directives Records FoundNo Advanced Directives Records FoundNo Advanced Directives Records FoundNo Advanced Directives Records FoundNo Advanced Directives Records Found Chief Complaint and Reason for Visit Chief Complaint ELEVATED LIVER ENZYM ES EORDERS Reason for Visit Fatigue NAFLD (nonalcoholic fatty liver disease) Polycythemia Chief Complaint ELEVATED LIVER ENZYM ES EORDERS NAFLD Reason for Visit Fatigue NAFLD (nonalcoholic fatty liver disease) Polycythemia Chief Complaint ELEVATED LIVER ENZYM ES EORDERS NAFLD 2 MO FU SKIN Reason for Visit Fatigue NAFLD (nonalcoholic fatty liver disease) Polycythemia NAFLD (nonalcoholic fatty liver disease) Chief Complaint 6 mo fu 1ST TIME 60 MIN 3 DRS/ 3 ORDERS Reason for Visit Fatigue NAFLD (nonalcoholic fatty liver disease) Polycythemia Chief Complaint 6 mo fu 1ST TIME 60 MIN 3 DRS/ 3 ORDERS NAFLD NCC SCREENING Reason for Visit Fatigue NAFLD (nonalcoholic fatty liver disease) Polycythemia Chief Complaint Admit Date 6 M FU August 07, 2024 8:40a m Reason for Visit Admit Date Liver fibrosis August 07, 2024 8:40a m Metabolic dysfunction-associ ated steatotic liver disease (MASLD) August 07, 2024 8:40am Polycythemia August 07, 2024 8:40a m Additional Source Comments Source Comments (unrecognize d section and content) In the event this informatio n is protected by the Federal Confidentiality of Alcohol and Drug Abuse Patient Records regulations: The Federal rules restrict any use of the information to criminally investigate or prosecute any alcohol or drug abuse patient.[facility] the event this information is protected by the Federal Confidentiality of Alcohol and Drug Abuse Patient Records regulations: The Federal rules restrict any use of the information to criminally investigate or prosecute any alcohol or drug abuse patient.[facility] the event this information is protected by the Federal Confidentiality of Alcohol and Drug Abuse Patient Records regulations: The Federal rules restrict any use of the information to criminally investigate or prosecute any alcohol or drug abuse patient.[facility] the event this information is protected by the Federal Confidentiality of Alcohol and Drug Abuse Patient Records regulations: The Federal rules restrict any use of the information to criminally investigate or prosecute any alcohol or drug abuse patient.[facility] INFORMATION SOURCE (unrecogn ized section and content) DATE CREATED AUTHOR 12/15/2019 [facility] DATE CREATED AUTHOR AUTHOR'S ORGANIZ ATION 12/08/2021 [facility] DATE CREATED AUTHOR AUTHOR'S ORGANIZ ATION 01/13/2024 Jhonatan Moss [facility] DATE CREATED AUTHOR AUTHOR'S ORGANIZ ATION 03/31/2024 [facility] DATE CREATED AUTHOR AUTHOR'S ORGANIZ ATION 08/07/2024 [facility] Goals (unrecognized section and content) Goals may be documented in a n alternate sectionGoals may be documented in an alternate sectionGoals may be documented in an alternate sectionGoals may be documented in an alternate sectionGoals may be documented in an alternate sectionGoals may be documented in an alternate section Care Teams (unrecognized sec tion and content) Team Status: Active Member Role Status Dates Dr. Bob Santamaria MD Family Provider Active Sanjuanita Garcia PA, PA Primary Care Provider Active Team Status: Inactive Member Role Status Dates Sanjuanita Garcia PA, PA Primary Care Provider, Referring Provider Active Effie Lott DRY MOP MAKER, DRY MOP MAKER-C Attending Provider Active Team Status: Inactive Member Role Status Dates Sanjuanita Garcia PA, PA Primary Care Provider Active Effie Lott DRY MOP MAKER, DRY MOP MAKER-C Attending Provider, Referrin g Provider Active Team Status: Inactive Member Role Status Dates Sanjuanita Garcia PA, PA Primary Care Provider Active Bucky GARAY PA Attending Provider, Referring Provi benjamin Active Team Status: Inactive Member Role Status Dates Sanjuanita Garcia PA, PA Primary Care Provider, Referring Provider Active Dr. Ehsan Bains MD Attending Provider Active Team Status: Inactive Member Role Status Dates Sanjuanita Garcia PA, PA Primary Care Provider, Other Pro vider Active Dr. Ehsan Bains MD Attending Provider, Referring P rovider Active Bucky GARAY PA Other Provider Active Team Status: Inactive Member Role Status Dates Sanjuanita GARAY, PA Primary Care Provider Active Dr. Ehsan Bains MD Attending Provider Active Team Status: Inactive Member Role Status Dates Sanjuanita Garcia PA, PA Primary Care Provider Active Start: August 07, 2024 End: August 07, 2024 Sanjuanita GARAY PA Referring Provider Active Start: August 07, 2024 End: August 07, 2024 Dr. Ehsan Bains MD Attending Provider Active Start: August 07, 2024 End: August 07, 2024 FOR RECORDS PERTAINING TO PATIENTS WHO ARE OR HAVE BEEN ENROLLED IN A CHEMICAL DEPENDENCY/SUBSTANCEABUSE PROGRAM, SOME INFORMATION MAY BE OMITTED. This clinical summary was aggregated from multiple sources. Caution should be exercised in using it in the provision of clinical care. This summary normalizes information from multiple sources, and as a consequence, information in this document may materially change the coding, format and clinical context of patient data. In addition, data may be omitted in some cases. CLINICAL DECISIONS SHOULD BE BASED ON THE PRIMARY CLINICAL RECORDS. [employer] provides no warranty or guarantee of the accuracy or completeness of information in this document.
[2024-10-04 05:07] LABS: QNTFERON TB Mitogen Value > 10.00 IU/mL (.); QNTFERON TB Nil Value 0.03 IU/mL (.); QNTFERON TB1+ Ag Value 0.03 IU/mL (.); QNTFERON TB2+ Ag Value 0.04 IU/mL (.); QNTIFERON TB Positive Criteria Negative (Negative); Transferrin 270 mg/dL (192-364)
== END | disposition home or self-care (01) ==
LOC: MTLAB 09:31
PROVIDERS: PCP Physician Assistant; Referring Provider Internal Medicine; Visit Provider Internal Medicine
DX: L40.0 Psoriasis vulgaris (principal); E11.9 Type 2 diabetes mellitus without complications; K76.0 Fatty (change of) liver, not elsewhere classified; K74.00 Hepatic fibrosis, unspecified; R16.1 Splenomegaly, not elsewhere classified; D75.1 Secondary polycythemia; R53.83 Other fatigue
CPT/HCPCS: 36415; 80053; 80061; 82728; 83036; 83540; 83550; 84466; 85025; 85610; 86480